=== PATIENT | male | born 1935 | race Caucasian/White ===

== ENCOUNTER 2016-06-23 11:25 | Observation (INO) | payer MEDICARE, BC ==
[2016-06-23] MEDS ORDERED: ASPIRIN 81 MG CHEW PO STA (11:51)
[2016-06-23] MEDS ORDERED: NITROGLYCERIN OINT 1 INCH/GM PACKET TOPICAL STA (11:51)
--- NOTE | 2016-06-23 11:54 | ED ---
General Adult HPI - General Chief complaint: Chest Pain Stated complaint: heart flutter Time Seen by Provider: 06/23/16 11:37 Source: patient, RN notes reviewed Mode of arrival: wheelchair Limitations: no limitations - History of Present Illness Initial comments: Patient is a pleasant 80-year-old male presenting to the emergency Department with palpitations and chest discomfort. Onset of symptoms was prior to arrival. Patient checked his monitor with a heart rate of 166. Patient felt he had some pressure in his chest. Patient was given 2 nitroglycerin at home with resolution of symptoms. Patient is currently symptom-free. Patient did have similar symptoms once around 5 years ago and had stent placement. No leg pain or swelling. No cough or fever. No nausea or diaphoresis. No dyspnea. - Related Data Home Medications Medication Instructions Recorded Confirmed Apixaban [Eliquis] 2.5 mg PO BID 01/17/16 06/23/16 Cholecalciferol [Vitamin D3] 2,000 unit PO DAILY 01/17/16 06/23/16 Meclizine [Antivert] 25 mg PO BID PRN 01/17/16 06/23/16 Ranitidine HCl 150 mg PO DAILY 01/17/16 06/23/16 Carboxymethylcellulose Sodium 1 drop BOTH EYES TID PRN 03/18/16 06/23/16 [Refresh Tears] Magnesium Oxide [Mag-Ox] 400 mg PO DAILY 03/18/16 06/23/16 Ubidecarenone [Co Q-10] 100 mg PO DAILY 03/18/16 06/23/16 Vitamin A 10,000 unit PO DAILY 03/18/16 06/23/16 guaiFENesin [Mucinex] 600 mg PO BID PRN 03/18/16 06/23/16 Flecainide Acetate [Tambocor] 50 mg PO Q12HR 04/22/16 06/23/16 Metoprolol Tartrate [Lopressor] 12.5 mg PO QAM 04/22/16 06/23/16 Nitroglycerin Sl Tabs [Nitrostat] 0.4 mg SUBLINGUAL Q5M PRN 04/22/16 06/23/16 HYDROcodone/APAP 7.5-325MG [[place] 1 - 2 tab PO Q6HR PRN 06/23/16 06/23/16 7.5-325] Previous Rx's Medication Instructions Recorded Buta/APAP/Caf/Cod 15-517-27-30 1 cap PO TID PRN #10 cap 05/01/16 [Fioricet w/Cod 10-646-78-30MG] Allergies Allergy/AdvReac Type Severity Reaction Status Date / Time diltiazem HCl [From Cardizem] Allergy Rash/Hives Verified 06/23/16 11:58 Penicillins Allergy Swelling Verified 06/23/16 11:58 Review of Systems ROS Statement: Those systems with pertinent positive or pertinent negative responses have been documented in the HPI. ROS Other: All systems not noted in ROS Statement are negative. Constitutional: Denies: fever Eyes: Denies: eye pain ENT: Denies: ear pain Respiratory: Denies: cough, dyspnea Cardiovascular: Reports: chest pain, palpitations Endocrine: Denies: fatigue Gastrointestinal: Denies: abdominal pain Genitourinary: Denies: dysuria Musculoskeletal: Denies: back pain Skin: Denies: rash Neurological: Denies: weakness Past Medical History Past Medical History: Atrial Fibrillation, Coronary Artery Disease (CAD), Cancer , GERD/Reflux, Hyperlipidemia, Hypertension, Memory Impairment, Myocardial Infarction ([place]), Musculoskeletal Disorder, Osteoarthritis (OA), Skin Disorder Additional Past Medical History / Comment(s): skin cancer, psoriasis, sinus problems,diverticulitis, bulging discs-back pain. Last Myocardial Infarction Date:: 01/27/15 History of Any Multi-Drug Resistant Organisms: None Reported Past Surgical History: Heart Catheterization With Stent Additional Past Surgical History / Comment(s): cardiac stents x2, right knee replacement, Revision total R knee, right quadricep tendon rupture with repair , hemorroidectomy, colonoscopy/egd, lt inguinal hernia, hip replacement Past Anesthesia/Blood Transfusion Reactions: No Reported Reaction Additional Past Anesthesia/Blood Transfusion Reaction / Comment(s): disoriented for a couple days after surgery/anesthesia (fell out of bed 1st day post op after knee replacement) Date of Last Stent Placement:: 2015 Past Psychological History: No Psychological Hx Reported Additional Psychological History / Comment(s): Pt resides with his spouse. He uses a cane to ambulate. He states he performs his own ADLs and manages his own medication. He states he drives. is not well-issue after back/knee surgery-pt states she is in bed. Smoking Status: Former smoker Past Alcohol Use History: None Reported Additional Past Alcohol Use History / Comment(s): started smoking at age 13 ( 1949)-quit 37 years ago (1977) Past Drug Use History: None Reported - Past Family History Sister(s) Family Medical History: Cancer Brother(s) Family Medical History: Cancer Father Family Medical History: No Reported History Additional Family Medical History / Comment(s): was smoker, from pneumonia at age 82 yrs. Mother Family Medical History: Cancer Additional Family Medical History / Comment(s): . General Exam Limitations: no limitations General appearance: alert, in no apparent distress Head exam: Present: atraumatic Eye exam: Present: normal appearance, PERRL ENT exam: Present: normal oropharynx Neck exam: Present: normal inspection Respiratory exam: Present: normal lung sounds bilaterally Cardiovascular Exam: Present: regular rate, normal rhythm Expanded Peripheral pulses: 2+: Radial (R), Radial (L), Posterior Tibialis (R), Posterior Tibialis (L) GI/Abdominal exam: Present: soft. Absent: distended, tenderness Extremities exam: Present: normal inspection. Absent: pedal edema, calf tenderness Neurological exam: Present: alert Psychiatric exam: Present: normal affect, normal mood Skin exam: Absent: rash Course Vital Signs 06/23/16 06/23/16 06/23/16 11:26 12:08 12:53 Temperature 97.5 F L Pulse Rate 66 57 L 53 L Respiratory 18 15 18 Rate Blood Pressure 101/57 104/60 105/59 O2 Sat by Pulse 99 99 99 Oximetry EKG Findings - EKG Comments: EKG Findings:: Normal sinus rhythm at 63. Normal intervals. Left axis. Normal QRS. Normal ST-T. Medical Decision Making - Medical Decision Making Patient reexamined and resting comfortably in bed. Patient and family updated on results and plan. Case was discussed in detail with Dr. Rodriguez, who will admit for Dr. Toledo. - Lab Data Result diagrams: 06/23/16 12:07 06/23/16 12:07 Lab Results 06/23/16 06/23/16 06/23/16 Range/Units 12:07 12:07 12:07 WBC 6.2 (3.8-10.6) k/uL RBC 3.91 L (4.30-5.90) m/uL Hgb 12.2 L (13.0-17.5) gm/dL Hct 36.9 L (39.0-53.0) % MCV 94.4 (80.0-100.0) fL MCH 31.2 (25.0-35.0) pg MCHC 33.1 (31.0-37.0) g/dL RDW 13.2 (11.5-15.5) % Plt Count 246 (150-450) k/uL Neutrophils % 69 % Lymphocytes % 18 % Monocytes % 8 % Eosinophils % 2 % Basophils % 0 % Neutrophils # 4.2 (1.3-7.7) k/uL Lymphocytes # 1.1 (1.0-4.8) k/uL Monocytes # 0.5 (0-1.0) k/uL Eosinophils # 0.1 (0-0.7) k/uL Basophils # 0.0 (0-0.2) k/uL PT (9.0-12.0) sec INR (<1.1) APTT (22.0-30.0) sec Sodium 146 H (137-145) mmol/L Potassium 4.5 (3.5-5.1) mmol/L Chloride 108 H (98-107) mmol/L Carbon Dioxide 27 (22-30) mmol/L Anion Gap 11 mmol/L BUN 20 (9-20) mg/dL Creatinine 1.10 (0.66-1.25) mg/dL Est GFR (MDRD) Af Amer >60 (>60 ml/min/1.73 sqM) Est GFR (MDRD) Non-Af >60 (>60 ml/min/1.73 sqM) Glucose 116 H (74-99) mg/dL Calcium 9.4 (8.4-10.2) mg/dL Magnesium 2.2 (1.6-2.3) mg/dL Total Bilirubin 0.4 (0.2-1.3) mg/dL AST 19 (17-59) U/L ALT 25 (21-72) U/L Alkaline Phosphatase 62 (38-126) U/L Total Creatine Kinase 32 L (55-170) U/L CK-MB (CK-2) <0.2 (0.0-2.4) ng/mL CK-MB (CK-2) Rel Index Troponin I <0.012 (0.000-0.034) ng/mL Total Protein 6.7 (6.3-8.2) g/dL Albumin 3.6 (3.5-5.0) g/dL TSH 2.580 (0.465-4.680) mIU/L Free T4 1.22 (0.78-2.19) ng/dL Free T3 pg/mL 4.2 (2.8-5.3) pg/ml 06/23/16 Range/Units 12:07 WBC (3.8-10.6) k/uL RBC (4.30-5.90) m/uL Hgb (13.0-17.5) gm/dL Hct (39.0-53.0) % MCV (80.0-100.0) fL MCH (25.0-35.0) pg MCHC (31.0-37.0) g/dL RDW (11.5-15.5) % Plt Count (150-450) k/uL Neutrophils % % Lymphocytes % % Monocytes % % Eosinophils % % Basophils % % Neutrophils # (1.3-7.7) k/uL Lymphocytes # (1.0-4.8) k/uL Monocytes # (0-1.0) k/uL Eosinophils # (0-0.7) k/uL Basophils # (0-0.2) k/uL PT 11.2 (9.0-12.0) sec INR 1.1 (<1.1) APTT 24.5 (22.0-30.0) sec Sodium (137-145) mmol/L Potassium (3.5-5.1) mmol/L Chloride (98-107) mmol/L Carbon Dioxide (22-30) mmol/L Anion Gap mmol/L BUN (9-20) mg/dL Creatinine (0.66-1.25) mg/dL Est GFR (MDRD) Af Amer (>60 ml/min/1.73 sqM) Est GFR (MDRD) Non-Af (>60 ml/min/1.73 sqM) Glucose (74-99) mg/dL Calcium (8.4-10.2) mg/dL Magnesium (1.6-2.3) mg/dL Total Bilirubin (0.2-1.3) mg/dL AST (17-59) U/L ALT (21-72) U/L Alkaline Phosphatase (38-126) U/L Total Creatine Kinase (55-170) U/L CK-MB (CK-2) (0.0-2.4) ng/mL CK-MB (CK-2) Rel Index Troponin I (0.000-0.034) ng/mL Total Protein (6.3-8.2) g/dL Albumin (3.5-5.0) g/dL TSH (0.465-4.680) mIU/L Free T4 (0.78-2.19) ng/dL Free T3 pg/mL (2.8-5.3) pg/ml - Radiology Data Radiology results: image reviewed (Chest x-ray shows no acute process) Disposition Clinical Impression: Chest pain, Palpitations Disposition: ADMITTED IP TO THIS [facility] Time of Disposition: 14:06
[2016-06-23 12:20] LABS: Basophils % (A) 0 %; CH 31.8; CHCM 33.8; Eosinophils # (A) 0.1 k/uL (0-0.7); Eosinophils % (A) 2 %; HCT 36.9 % (39.0-53.0); HDW 2.83; HGB 12.2 gm/dL (13.0-17.5); Luc # (Auto) 0.21; Luc % (Auto) 3; Lymphocytes # (A) 1.1 k/uL (1.0-4.8); Lymphocytes % (A) 18 %; MCH 31.2 pg (25.0-35.0); MCHC 33.1 g/dL (31.0-37.0); MCV 94.4 fL (80.0-100.0); Mean Platelet Volume 6.5; Monocytes # (A) 0.5 k/uL (0-1.0); Monocytes % (A) 8 %; Neutrophils # (A) 4.2 k/uL (1.3-7.7); Neutrophils % (A) 69 %; RBC 3.91 m/uL (4.30-5.90); RDW 13.2 % (11.5-15.5); WBC 6.2 k/uL (3.8-10.6); WBC (Perox) 6.53
[2016-06-23 12:30] LABS: INR 1.1 (<1.1); Partial Thromboplastin Time 24.5 sec (22.0-30.0); Prothrombin Time 11.2 sec (9.0-12.0)
--- NOTE | 2016-06-23 12:32 | XR ---
EXAMINATION TYPE: XR chest 1V portable DATE OF EXAM: 06/23/2016 12:27 PM COMPARISON: 03/18/2016 HISTORY: Dysrhythmia TECHNIQUE: Single frontal view of the chest is obtained. FINDINGS: There is no focal air space opacity, pleural effusion, or pneumothorax seen. The cardiac silhouette size is within normal limits. The osseous structures are intact. Hyperinflation suggests COPD. Hypertrophic change of the spine noted. IMPRESSION: No acute process.
[2016-06-23 12:34] LABS: ALT 25 U/L (21-72); AST 19 U/L (17-59); Alkaline Phosphatase 62 U/L (38-126); Anion Gap 11 mmol/L; Blood Urea Nitrogen 20 mg/dL (9-20); Calcium 9.4 mg/dL (8.4-10.2); Carbon Dioxide 27 mmol/L (22-30); Chloride 108 mmol/L (98-107); Glucose 116 mg/dL (74-99); Magnesium 2.2 mg/dL (1.6-2.3); Non-African American GFR(MDRD) >60 (>60 ml/min/1.73 sqM); Potassium 4.5 mmol/L (3.5-5.1); Sodium 146 mmol/L (137-145); Total Bilirubin 0.4 mg/dL (0.2-1.3); Total Protein 6.7 g/dL (6.3-8.2)
[2016-06-23 12:37] LABS: Creatine Kinase 32 U/L (55-170)
[2016-06-23 12:50] LABS: Creatine Kinase MB <0.2 ng/mL (0.0-2.4); Troponin I <0.012 ng/mL (0.000-0.034)
[2016-06-23] MEDS ORDERED: NITROGLYCERIN SL TABS 0.4 MG TAB SUBLINGUAL PRN (14:07)
[2016-06-23] MEDS ORDERED: ARTIFICIAL TEARS-HYPROMELLOSE DROPS 15 ML BTL BOTH EYES PRN (14:08)
[2016-06-23 15:04] VITALS: BMI 30.9
--- NOTE | 2016-06-23 16:36 | CONS ---
DATE OF CONSULTATION: 06/23/2016 CHIEF COMPLAINT: Chest pain. Manolo is an 80-year-old gentleman with history of coronary artery disease, status post angioplasty of LAD and circumflex coronary artery, who presented to [facility] complaining of chest pain. He describes it as a precordial chest pressure that was mild in intensity, came on at rest without definite radiation to neck, arm or back. He took 2 sublingual nitroglycerin and became pain-free. He came to the hospital and got admitted. Since coming to hospital he has been free of chest pain. EKG does not reveal ischemic changes. The first set of troponin is negative. Patient was in the hospital with chest pain in March of 2016, ruled out for myocardial infarction, underwent a stress test that was negative for ischemia. Patient's last cardiac catheterization was in January of 2015. That revealed a subtotally occluded proximal left circumflex coronary artery, for which he underwent angioplasty. Right coronary artery was free of stenosis and the LAD showed mild disease. Past medical history is significant for coronary artery disease, status post angioplasty, atrial fibrillation. Medications at home included: 1. Flecainide 50 mg b.i.d. 2. Eliquis 2.5 mg b.i.d. 3. Metoprolol. 4. Co-Q-10. ALLERGIES: CHARTED. FAMILY HISTORY: Negative for premature coronary artery disease. SOCIAL HISTORY: Negative for smoking, EtOH abuse or drug abuse. REVIEW OF SYSTEMS: HEENT: Unremarkable. CARDIAC: As described above. RESPIRATORY: Negative. GI: Negative. GENITOURINARY: Negative. ALLERGY/IMMUNOLOGY: Negative. MUSCULOSKELETAL: Negative. ENDOCRINE: Negative. DERMATOLOGIC: Negative. CONSTITUTIONAL: Negative. The rest of the system review is not relevant. On exam, comfortable at rest. Vital signs are stable. There is no jugular venous distention. Carotid upstroke is normal. There is no bruit. Chest exam reveals good air entry bilaterally. Heart exam reveals first and second heart sounds. No gallop. No murmur. No rub. Abdomen is soft, nontender. Examination of extremities did not reveal edema. Peripheral pulses are felt. 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 EKG does not reveal ischemic changes. Labs have been reviewed. ASSESSMENT: 1. Chest pain in a patient with known coronary artery disease, status post prior angioplasty. 2. Paroxysmal atrial fibrillation. 3. History of recent hip and knee surgery. PLAN: Patient is anticoagulated with Eliquis, which I am going to continue. I reviewed previous catheterization and stress test results, talked to patient about his treatment options, including undergoing invasive angiography tomorrow morning. Understanding all the issues, patient wishes to be observed overnight, and if he rules out for myocardial infarction will go home and follow up with Dr. Winchester, his primary trailer body assembler.
[2016-06-23] MEDS: NITROGLYCERIN OINT 1 INCH/GM PACKET TOPICAL SCH ×2 (17:41→23:57)
[2016-06-23] MEDS: APIXABAN 2.5 MG TABLET PO SCH (19:29)
[2016-06-23] MEDS: FLECAINIDE 50 MG TAB PO SCH (19:29)
[2016-06-23 19:32] LABS: Creatine Kinase 26 U/L (55-170)
[2016-06-23 19:46] LABS: Creatine Kinase MB <0.2 ng/mL (0.0-2.4); Troponin I <0.012 ng/mL (0.000-0.034)
[2016-06-24 00:11] LABS: Creatine Kinase 26 U/L (55-170)
[2016-06-24 00:24] LABS: Creatine Kinase MB <0.2 ng/mL (0.0-2.4); Troponin I <0.012 ng/mL (0.000-0.034)
[2016-06-24] MEDS ORDERED: BUTA/APAP/CAF/COD 50-325-40-30 CAP PO PRN (05:21)
[2016-06-24] MEDS: NITROGLYCERIN OINT 1 INCH/GM PACKET TOPICAL SCH ×2 (06:44→12:13)
[2016-06-24] MEDS: APIXABAN 2.5 MG TABLET PO SCH (06:54)
[2016-06-24] MEDS: FLECAINIDE 50 MG TAB PO SCH (06:54)
--- NOTE | 2016-06-24 08:58 | PN ---
Manolo is an 80-year-old gentleman with history of coronary artery disease, status post multivessel angioplasty. He comes in to hospital with chest pain and ruled out for myocardial infarction. He just had a negative stress test in March 2016 and opted for medical therapy at this time this morning. This morning he is doing well and is free of symptoms. On exam, vital signs are stable. There is no jugular venous distention. Chest exam reveals good air entry bilaterally. Heart exam reveals first and second heart sounds. No gallop. Exam of the extremities did not reveal any edema. Three sets of cardiac enzymes are negative. ASSESSMENT: Chest pain, myocardial infarction ruled out. PLAN: The patient is doing well. He is stable to be discharged home and arrange follow-up with his primary certified orthotist/pedorthist.
[2016-06-24] MEDS ORDERED: FAMOTIDINE 20 MG TAB PO SCH (09:00)
[2016-06-24] MEDS ORDERED: ASPIRIN 325 MG TAB PO SCH (09:00)
[2016-06-24] MEDS ORDERED: CHOLECALCIFEROL 1,000 UNIT TAB PO SCH (09:00)
[2016-06-24] MEDS ORDERED: METOPROLOL TARTRATE 25 MG TAB PO SCH (09:00)
[2016-06-24] MEDS ORDERED: MAGNESIUM OXIDE 400 MG TAB PO SCH (09:00)
[2016-06-24 12:18] LABS: Cholesterol 193 mg/dL (<200); HDL Cholesterol 34 mg/dL (40-60); Triglycerides 225 mg/dL (<150)
[2016-06-24 12:29] VITALS: BP 113/58; PULSE 51; RESP 14; TEMP 98
--- NOTE | 2016-06-24 16:43 | HP ---
H&P AND DISCHARGE SUMMARY DATE OF ADMISSION: Patient is an 80-year-old with a history of coronary artery disease, coronary angioplasty to the circumflex artery, who came in with complaints of ( ) chest pain. The patient's heart rate was 160 at that time. Patient does have history of atrial fibrillation. Patient took 2 sublingual nitroglycerins and became free of chest pain. Patient's EKG showed sinus bradycardia ( ). Patient denied any fever or chills. Patient denied any lightheadedness. Patient was having ( ) chest pain. Patient denied any shortness of breath, diaphoresis at that time. Patient denied any radiation of chest pain. Patient's chest pain is nonpleuritic, not associated with food. Patient was evaluated by Cardiology. Patient underwent a stress test ( ) which was negative. Cardiac catheterization in 2014. Patient was evaluated by Cardiology ( ) patient's pain appears to be secondary to atrial fibrillation. No further intervention ( ) recommended by Cardiology. They recommended followup with Dr. Winchester, his primary auditor tax, as an outpatient. ROS: All other systems were reviewed and were negative. Past medical history is significant for: 1. Atrial fibrillation. 2. Coronary artery bypass grafting, status post angioplasty. 3. Gastroesophageal reflux disease. 4. Hyperlipidemia. 5. Hypertension. 6. Osteoarthritis. 7. Psoriasis. Home medications include: 1. Apixaban. 2. Cholecalciferol. 3. Meclizine. 4. Ranitidine. 5. Carboxymethylcellulose. 6. ( ) 7. Guaifenesin. 8. Flecainide. 9. Metoprolol. 10. Nitroglycerin. 11. Fioricet. ALLERGIES: 1. DILTIAZEM. 2. PENICILLINS. SOCIAL HISTORY: Quit smoking 37 years ago. Denied any alcohol abuse or any drug abuse. FAMILY HISTORY: Sister had cancer. Brother had cancer. Father had no reported history. Mother had cancer as well. PHYSICAL EXAMINATION: VITAL SIGNS: Temperature 97.5, pulse of 57, respiratory rate of 18. Blood pressure is 104/59. Saturating at 99% on room air. GENERAL: The patient is alert and oriented x3, not in any acute distress. Well developed, well nourished. HEENT: Pupils are round and equally reacting to light. EOMI. No scleral icterus. No conjunctival pallor. Normocephalic, atraumatic. No pharyngeal erythema. No thyromegaly. CARDIOVASCULAR: S1 and S2 present. No murmurs, rubs, or gallops. PULMONARY: Chest is clear to auscultation, no wheezing or crackles. ABDOMEN: Soft, nontender, nondistended, normoactive bowel sounds. No palpable organomegaly. MUSCULOSKELETAL: No joint swelling or deformity. EXTREMITIES: No cyanosis, clubbing, or pedal edema. NEUROLOGICAL: Gross neurological examination did not reveal any focal deficits. SKIN: No rashes. LABORATORY DATA: CBC, CMP are essentially within normal limits. EKG as mentioned above. Troponins are negative. Chest x-ray did not show any acute abnormality. ASSESSMENT AND PLAN: 1. Chest pain, probably related to episode of atrial fibrillation. No precipitating cause was identified for atrial fibrillation. Patient is rate-controlled at this point of time, in sinus rhythm. Patient is cleared by discharge from cardiology perspective. Rule out acute coronary syndromes. 2. Coronary artery disease. 3. History of coronary artery disease. Patient ( ) recent cardiac catheterization and a recent stress test which was negative. 4. Gastroesophageal reflux disease. 5. Hypertension. 6. Psoriasis. For above-mentioned chronic medical problems, patient can continue his home medications. This dictation is both H&P and discharge summary. Patient will be discharged today. HERBERTH
== END 2016-06-24 14:23 | disposition home or self-care (01) ==
LOC: EC 11:25 → 3OBS 14:07
PROVIDERS: ADMIT Internal Medicine; ATTEND Internal Medicine
DX: I25.10 Atherosclerotic heart disease of native coronary artery without angina pectoris (principal); I48.0 Paroxysmal atrial fibrillation; E78.5 Hyperlipidemia, unspecified; I10 Essential (primary) hypertension; I25.2 Old myocardial infarction; K21.9 Gastro-esophageal reflux disease without esophagitis; L40.9 Psoriasis, unspecified; M19.90 Unspecified osteoarthritis, unspecified site; Z87.891 Personal history of nicotine dependence; Z95.1 Presence of aortocoronary bypass graft; Z95.5 Presence of coronary angioplasty implant and graft; Z79.899 Other long term (current) drug therapy; Z79.02 Long term (current) use of antithrombotics/antiplatelets; Z88.0 Allergy status to penicillin; Z88.8 Allergy status to other drugs, medicaments and biological substances; R00.1 Bradycardia, unspecified
CPT/HCPCS: 36415; 94760; 93005; 84439; 84481; 80061; 80053; 82550; 82553; 83735; 84443; 84484; 85025; 85610; 85730; 71010; 99285; G0378 ×2

== ENCOUNTER → 2016-09-01 | Outpatient (CLI) | payer MEDICARE, BC ==
[2016-09-01 11:00] LABS: Basophils # (A) 0.1 k/uL (0-0.2); Basophils % (A) 1 %; CH 31.9; CHCM 33.8; Eosinophils # (A) 0.2 k/uL (0-0.7); Eosinophils % (A) 2 %; HCT 37.5 % (39.0-53.0); HDW 2.77; HGB 12.5 gm/dL (13.0-17.5); Luc # (Auto) 0.17; Luc % (Auto) 2; Lymphocytes # (A) 1.5 k/uL (1.0-4.8); Lymphocytes % (A) 20 %; MCH 31.6 pg (25.0-35.0); MCHC 33.3 g/dL (31.0-37.0); MCV 95.1 fL (80.0-100.0); Mean Platelet Volume 6.4; Monocytes # (A) 0.4 k/uL (0-1.0); Monocytes % (A) 6 %; Neutrophils % (A) 68 %; RBC 3.95 m/uL (4.30-5.90); RDW 14.4 % (11.5-15.5); WBC 7.2 k/uL (3.8-10.6); WBC (Perox) 7.71
[2016-09-01 11:13] LABS: ALT 22 U/L (21-72); Anion Gap 11 mmol/L; Blood Urea Nitrogen 25 mg/dL (9-20); Carbon Dioxide 27 mmol/L (22-30); Chloride 106 mmol/L (98-107); Cholesterol 193 mg/dL (<200); HDL Cholesterol 41 mg/dL (40-60); Non-African American GFR(MDRD) >60 (>60 ml/min/1.73 sqM); Potassium 4.8 mmol/L (3.5-5.1); Sodium 144 mmol/L (137-145); Triglycerides 246 mg/dL (<150)
== END ==
LOC: LABWHC1 10:30
PROVIDERS: ATTEND Internal Medicine Cardiovascular Disease
DX: E78.5 Hyperlipidemia, unspecified (principal); I34.0 Nonrheumatic mitral (valve) insufficiency; I25.10 Atherosclerotic heart disease of native coronary artery without angina pectoris; R06.02 Shortness of breath; Z51.81 Encounter for therapeutic drug level monitoring; Z79.899 Other long term (current) drug therapy
CPT/HCPCS: 36415; 80051; 80061; 82306; 82565; 83880; 84443; 84460; 84520; 85025

== ENCOUNTER 2016-10-26 08:09 | Emergency (ER) | payer MEDICARE, BC ==
[2016-10-26] MEDS ORDERED: SODIUM CHLORIDE 0.9% 1,000 ML IV STA (08:45)
[2016-10-26] MEDS ORDERED: HYDROmorphone 1 MG/ML 1 ML SYRINGE IVP STA (08:45)
[2016-10-26] MEDS ORDERED: ASPIRIN 81 MG CHEW PO STA (08:45)
[2016-10-26] MEDS ORDERED: METOPROLOL TARTRATE 25 MG TAB PO STA (08:48)
--- NOTE | 2016-10-26 08:54 | ED ---
Chest Pain HPI - General Chief Complaint: Chest Pain Stated Complaint: chest pain Time Seen by Provider: 10/26/16 08:24 Source: patient Mode of arrival: wheelchair Limitations: no limitations - History of Present Illness Initial Comments: 81 years old gentleman has a history of atrial fibrillation and he is on aliquots flecainide and metoprolol he noticed chest pressure this morning when he woke up around 5 AM he has been taking all his medications religiously pain was about 4/10 now pain is about 3/10 he did take couple of nitros it didn't help he denies any shortness of breath denies any pleuritic chest pain his blood pressure normally runs low his blood pressure runs below 100 - Related Data Home Medications Medication Instructions Recorded Confirmed Apixaban [Eliquis] 2.5 mg PO BID 01/17/16 10/26/16 Cholecalciferol [Vitamin D3] 2,000 unit PO DAILY 01/17/16 10/26/16 Meclizine [Antivert] 25 mg PO BID PRN 01/17/16 10/26/16 Vitamin A 10,000 unit PO DAILY 03/18/16 10/26/16 guaiFENesin [Mucinex] 600 mg PO BID PRN 03/18/16 10/26/16 Flecainide Acetate [Tambocor] 50 mg PO Q12HR 04/22/16 10/26/16 Metoprolol Tartrate [Lopressor] 12.5 mg PO QAM 04/22/16 10/26/16 Nitroglycerin Sl Tabs [Nitrostat] 0.4 mg SUBLINGUAL Q5M PRN 04/22/16 10/26/16 Previous Rx's Medication Instructions Recorded Buta/APAP/Caf/Cod [id number] 1 cap PO TID PRN #10 cap 05/01/16 [Fioricet w/Cod 20-141-37-30MG] Allergies Allergy/AdvReac Type Severity Reaction Status Date / Time diltiazem HCl [From Cardizem] Allergy Rash/Hives Verified 10/26/16 10:13 Penicillins Allergy Swelling Verified 10/26/16 10:13 Review of Systems ROS Statement: Those systems with pertinent positive or pertinent negative responses have been documented in the HPI. ROS Other: All systems not noted in ROS Statement are negative. EKG Findings - EKG Comments: EKG Findings:: Is atrial fibrillation ventricular rate is 142 QRS duration is 88 QT/QTc is 3086/473 review of this EKG does not reveal any ST elevation or ST depression Past Medical History Past Medical History: Atrial Fibrillation, Coronary Artery Disease (CAD), Cancer , GERD/Reflux, Hyperlipidemia, Hypertension, Memory Impairment, Myocardial Infarction ([place]), Musculoskeletal Disorder, Osteoarthritis ([place]), Skin Disorder Additional Past Medical History / Comment(s): skin cancer, psoriasis, sinus problems,diverticulitis, bulging discs-back pain. Last Myocardial Infarction Date:: 01/27/15 History of Any Multi-Drug Resistant Organisms: None Reported Past Surgical History: Heart Catheterization With Stent Additional Past Surgical History / Comment(s): cardiac stents x2, right knee replacement, Revision total R knee, right quadricep tendon rupture with repair , hemorroidectomy, colonoscopy/egd, lt inguinal hernia, hip replacement, left eye cataract removed Past Anesthesia/Blood Transfusion Reactions: No Reported Reaction Additional Past Anesthesia/Blood Transfusion Reaction / Comment(s): disoriented for a couple days after surgery/anesthesia (fell out of bed 1st day post op after knee replacement) Date of Last Stent Placement:: 2015 Past Psychological History: No Psychological Hx Reported Additional Psychological History / Comment(s): Pt resides with his spouse. He uses a cane to ambulate. He states he performs his own ADLs and manages his own medication. He states he drives. is not well-issue after back/knee surgery-pt states she is in bed. Smoking Status: Former smoker Past Alcohol Use History: None Reported Additional Past Alcohol Use History / Comment(s): started smoking at age 13 ( 1949)-quit 37 years ago (1977) Past Drug Use History: None Reported - Past Family History Sister(s) Family Medical History: Cancer Brother(s) Family Medical History: Cancer Father Family Medical History: No Reported History Additional Family Medical History / Comment(s): was smoker, from pneumonia at age 82 yrs. Mother Family Medical History: Cancer Additional Family Medical History / Comment(s): . General Exam - General Exam Comments Initial Comments: General: The patient is awake and alert, in no distress, and does not appear acutely ill. Does look pale Skin: Skin is warm and dry and no rashes or lesions are noted. Eye: Pupils are equal, round and reactive to light, extra-ocular movements are intact; there is normal conjunctiva bilaterally. Ears, nose, mouth and throat: There are moist mucous membranes and no oral lesions. Neck: The neck is supple, there is no tenderness Cardiovascular: There is A. fib with RVR) 140 Respiratory: To auscultation bilateral, it sounds are decreased in general, no wheezing Gastrointestinal: Soft, non-distended, non-tender abdomen without masses or organomegaly noted. There is no rebound or guarding present. Bowel sounds are unremarkable. Back: There is no tenderness to palpation in the midline. There is no obvious deformity. Musculoskeletal: Normal ROM, no tenderness, There is no pedal edema. There is no calf tenderness or swelling. No cords were appreciated. Neurological: CN II-XII intact, Cranial nerves III through XII are intact. There are no obvious motor or sensory deficits. Coordination appears grossly intact. Speech is normal. Psychiatric: Cooperative, appropriate mood & affect, normal judgment. Limitations: no limitations Course Vital Signs 10/26/16 10/26/16 10/26/16 08:14 08:16 09:24 Temperature 98.6 F Pulse Rate 132 H 136 H 64 Respiratory 18 20 Rate Blood Pressure 102/59 104/71 O2 Sat by Pulse 96 Oximetry 10/26/16 09:57 Temperature Pulse Rate 68 Respiratory 20 Rate Blood Pressure 116/67 O2 Sat by Pulse 99 Oximetry After patient was giving him some IV fluids as well as metoprolol 25 mg his heart rate dropped from 139-64 bpm it's not atrial fibrillation it's sinus rhythm EKG done at 953 this is the second EKG is normal sinus rhythm, ventricular rate is 64 NV interval is 186 QRS duration is 70 QT/QTc is 48/420 review of this EKG does not reveal any ST elevation or ST depression. - Reevaluation(s) Reevaluation #1: 10/26/16 11:20 Patient wanted to leave AMA, I tried explained them that we need at least 3 sets of cardiac markers and then they could stay be evaluated by cardiology and see if there is any question of any blockade but patient and his found him in the morning they wanted go to their advised to come back if things get worse they agreed with the Reevaluation #2: 10/26/16 11:21 His heart rate settled down to around 60 bpm after metoprolol chest pain is resolved at this point Critical Care Time Total Critical Care Time: 30 Critical Care Time: On arrival the patient's pulse was 132 and is atrial fibrillation and there was a defibrillation with the RVR, fluid was started considering blood pressure was low and then now, About 25 mg was given a little while later heart rate dropped from 1:30 to 265 actually it converted from A. fib to sinus rhythm as well, CBC INR compressive metabolic panel troponin EKG chest x-ray are reviewed and they' re unremarkable that was shared with the patient and recommend that we keep him in inpatient for at least serial cardiac markers considering his history of ischemic heart disease and chest pain Disposition Clinical Impression: Chest pain, Atrial fibrillation with RVR Disposition: Left Against Medical Advice Instructions: Chest Pain (ED) Referrals: Neelima Toledo MD [Primary Care Provider] - 1-2 days
[2016-10-26 09:33] LABS: Basophils % (A) 1 %; CH 33.3; CHCM 34.1; Eosinophils # (A) 0.1 k/uL (0-0.7); Eosinophils % (A) 1 %; HCT 38.3 % (39.0-53.0); HDW 2.61; HGB 12.9 gm/dL (13.0-17.5); Luc # (Auto) 0.19; Luc % (Auto) 2; Lymphocytes # (A) 1.6 k/uL (1.0-4.8); Lymphocytes % (A) 19 %; MCHC 33.6 g/dL (31.0-37.0); MCV 98.2 fL (80.0-100.0); Mean Platelet Volume 6.2; Monocytes # (A) 0.6 k/uL (0-1.0); Monocytes % (A) 7 %; Neutrophils # (A) 5.6 k/uL (1.3-7.7); Neutrophils % (A) 70 %; RBC 3.89 m/uL (4.30-5.90); RDW 13.4 % (11.5-15.5); WBC 8.1 k/uL (3.8-10.6); WBC (Perox) 8.64
[2016-10-26 09:46] LABS: INR 1.1 (<1.1); Partial Thromboplastin Time 26.8 sec (22.0-30.0); Prothrombin Time 11.1 sec (9.0-12.0)
--- NOTE | 2016-10-26 09:49 | XR ---
EXAMINATION TYPE: XR chest 2V DATE OF EXAM: 10/26/2016 COMPARISON: Chest x-ray June 23, 2016. HISTORY: Tachycardia and chest pain. TECHNIQUE: Frontal and lateral views of the chest are obtained. FINDINGS: There is no focal air space opacity, pleural effusion, or pneumothorax seen. The cardiac silhouette size is within normal limits. Multilevel spurring in thoracic spine is present. IMPRESSION: No acute process. No significant change from prior.
[2016-10-26 09:51] LABS: ALT 24 U/L (21-72); AST 22 U/L (17-59); Alkaline Phosphatase 62 U/L (38-126); Anion Gap 13 mmol/L; Blood Urea Nitrogen 21 mg/dL (9-20); Calcium 9.2 mg/dL (8.4-10.2); Carbon Dioxide 26 mmol/L (22-30); Chloride 106 mmol/L (98-107); Glucose 99 mg/dL (74-99); Magnesium 2.1 mg/dL (1.6-2.3); Non-African American GFR(MDRD) >60 (>60 ml/min/1.73 sqM); Potassium 4.4 mmol/L (3.5-5.1); Sodium 145 mmol/L (137-145); Total Bilirubin 0.7 mg/dL (0.2-1.3); Total Protein 6.9 g/dL (6.3-8.2)
[2016-10-26 10:23] LABS: Creatine Kinase 42 U/L (55-170)
[2016-10-26 10:36] LABS: Creatine Kinase MB <0.2 ng/mL (0.0-2.4); Troponin I <0.012 ng/mL (0.000-0.034)
[2016-10-26 11:40] VITALS: BP 110/78; PULSE 87; RESP 18; TEMP 97.5
== END 2016-10-26 11:40 | disposition left against medical advice (07) ==
LOC: EC 08:09
DX: I48.91 Unspecified atrial fibrillation (principal); R07.9 Chest pain, unspecified; I25.10 Atherosclerotic heart disease of native coronary artery without angina pectoris; E78.5 Hyperlipidemia, unspecified; I10 Essential (primary) hypertension; I25.2 Old myocardial infarction; Z53.29 Procedure and treatment not carried out because of patient's decision for other reasons; Z95.5 Presence of coronary angioplasty implant and graft; Z88.0 Allergy status to penicillin; Z88.8 Allergy status to other drugs, medicaments and biological substances; Z79.01 Long term (current) use of anticoagulants; Z79.899 Other long term (current) drug therapy; Z87.891 Personal history of nicotine dependence
CPT/HCPCS: 99285; 96374; 96361 ×2; 36415; 93005; 80053; 82550; 82553; 83735; 84484; 85025; 85610; 85730; 71020; J1170

== ENCOUNTER → 2016-10-29 | Outpatient (CLI) | payer MEDICARE, BC ==
[2016-10-29 11:39] LABS: Basophils % (A) 1 %; CH 33.1; CHCM 34.6; Eosinophils # (A) 0.1 k/uL (0-0.7); Eosinophils % (A) 2 %; HCT 37.3 % (39.0-53.0); HDW 2.75; HGB 12.5 gm/dL (13.0-17.5); Luc # (Auto) 0.19; Luc % (Auto) 3; Lymphocytes # (A) 1.5 k/uL (1.0-4.8); Lymphocytes % (A) 23 %; MCH 32.3 pg (25.0-35.0); MCHC 33.5 g/dL (31.0-37.0); MCV 96.3 fL (80.0-100.0); Mean Platelet Volume 6.3; Monocytes # (A) 0.4 k/uL (0-1.0); Monocytes % (A) 7 %; Neutrophils # (A) 4.2 k/uL (1.3-7.7); Neutrophils % (A) 65 %; RBC 3.87 m/uL (4.30-5.90); RDW 12.8 % (11.5-15.5); WBC 6.4 k/uL (3.8-10.6)
[2016-10-29 12:01] LABS: ALT 24 U/L (21-72); Anion Gap 10 mmol/L; Blood Urea Nitrogen 26 mg/dL (9-20); Carbon Dioxide 26 mmol/L (22-30); Chloride 107 mmol/L (98-107); Cholesterol 185 mg/dL (<200); Glucose 100 mg/dL (74-99); HDL Cholesterol 44 mg/dL (40-60); Magnesium 2.1 mg/dL (1.6-2.3); Non-African American GFR(MDRD) >60 (>60 ml/min/1.73 sqM); Potassium 4.8 mmol/L (3.5-5.1); Sodium 143 mmol/L (137-145); Triglycerides 148 mg/dL (<150)
== END | disposition home or self-care (01) ==
LOC: LABWHC1 11:07
PROVIDERS: ATTEND Internal Medicine Cardiovascular Disease
DX: E78.5 Hyperlipidemia, unspecified (principal); I34.0 Nonrheumatic mitral (valve) insufficiency; R06.02 Shortness of breath
CPT/HCPCS: 36415; 80051; 80061; 82565; 82947; 83735; 83880; 84443; 84460; 84520; 85025

== ENCOUNTER 2016-12-10 08:57 | Day surgery (SDC) | payer MEDICARE, BC ==
[2016-12-03 17:30] VITALS: BMI 25.0
[~2016-12-10 08:57] MED LIST: LACTATED RINGERS 1,000 ML IV SCH; LIDOCAINE 1% 20 ML VIAL (10MG/ML) FOR IV START INTRADERMA PRN; TETRACAINE 0.5% OPHTH (PF) DROPS 4 ML BTL OP ONE
[2016-12-10] MEDS: PHENYLEPHRINE 2.5% OPHTH DRP 2ML OP NR ×3 (10:18→10:35)
[2016-12-10] MEDS: CYCLOPENTOLATE 1% OPHTH SOLN 2 ML BTL OP ONE ×3 (10:22→10:40)
[2016-12-10 10:49] VITALS: RESP 16; TEMP 97
[2016-12-10] MEDS ORDERED: TIMOLOL 0.5% OPHTH SOLN (PF) 0.2 ML DROPERETTE RIGHT EYE ONE ×2 (11:02→11:06)
[2016-12-10] MEDS ORDERED: BALANCED SALT IRRIG SOLN COMB2 15 ML IRRIG.SOLN INTRAOCULA ONE ×2 (11:02→11:06)
[2016-12-10] MEDS: MOXIFLOXACIN HCL 0.5% DROPS 3 ML BTL OP ONE ×2 (11:03→11:06)
[2016-12-10] MEDS ORDERED: LIDOCAINE 1% (PF) 10MG/ML VIAL SQ ONE ×2 (11:04→11:06)
[2016-12-10] MEDS: TIMOLOL 0.5% OPHTH SOLN (PF) 0.2 ML DROPERETTE OP ONE ×2 (11:04→11:06)
[2016-12-10] MEDS ORDERED: fentaNYL (PF) 50 MCG/ML 2 ML AMP ONE (11:06)
[2016-12-10] MEDS ORDERED: EPINEPHrine (PF) 0.3 ML in BALANCED SALT IRRIG SOLN COMB2 500 ML IRRIGATION ONE (11:09)
--- NOTE | 2016-12-10 11:29 | P.OP ---
Date of Procedure: 12/10/16 Preoperative Diagnosis: NS & CS Postoperative Diagnosis: same Procedure(s) Performed: PIOL, OD Implants: PCB00 20.50 Anesthesia: MAC Surgeon: Branden Sauer Estimated Blood Loss (ml): 0 Pathology: none sent Condition: stable Disposition: same day Indications for Procedure: blurry vision Operative Findings: No complications Description of Procedure:
[2016-12-10 11:51] VITALS: PULSE 52
[2016-12-10 11:52] VITALS: BP 139/93
[2016-12-10] MEDS ORDERED: ACETAMINOPHEN TAB 325 MG TAB PO ONE (12:11)
--- NOTE | 2016-12-11 11:37 | OP ---
DATE OF SURGERY: 12/10/2016 SURGEON: Branden Sauer MD [employer] PHOTOGRAPHER: PREOPERATIVE DIAGNOSIS: Nuclear sclerosis, cortical sclerosis. POSTOPERATIVE DIAGNOSIS: OPERATION: Phacoemulsification of cataract and intraocular lens implant of the right eye. OD/OS eye. ESTIMATED BLOOD LOSS: Zero. SPECIMEN TAKEN: None. NARRATIVE: After obtaining the appropriate consent, the patient was brought to the operating room where the patient was placed under cardiac monitoring and prepped and draped in the usual sterile manner. At the 11 oclock position a 15 degree super sharp blade was used to create a paracentesis followed by instillation of 1% Xylocaine MPF 50:50 mix with BSS into the anterior chamber. This was followed by Amvisc to stabilize the anterior chamber. At the 9 o clock position a self-sealing corneal flap incision was created using 2.8 mm kang keratome. A cystatome was used to initiate a continuous tear capsulorrhexis which was completed with the Utrata forceps. A Binkhorst cannula was used to hydrodissect the lens nucleus followed by hydrodelineation. Phacoemulsification of the lens was performed utilizing phacochop in 17.07 seconds at 8% power. The remaining cortical material was removed using the irrigation aspiration mode followed by additional 1% Xylocaine MPF into the anterior chamber followed by viscoelastic to stabilize the capsular bag. An [employer] PCB00 20.5 diopters posterior chamber lens was placed into the capsular bag without difficulty. The remaining viscoelastic material was removed from the anterior chamber with the irrigation/aspiration. Balanced salt solution was used to normalize the intraocular pressure. The incision was checked for watertight integrity. The patient then received two drops of 0.5% timolol followed by two drops Vigamox, was lightly patched and shielded in the usual manner. There were no complications from the procedure. The patient tolerated the procedure well and was returned to recovery in good condition. HERBERTH
== END 2016-12-10 12:57 | disposition home or self-care (01) ==
LOC: OR 08:57
PROVIDERS: ATTEND Ophthalmology
DX: H25.11 Age-related nuclear cataract, right eye (principal); H25.011 Cortical age-related cataract, right eye; I25.10 Atherosclerotic heart disease of native coronary artery without angina pectoris; I10 Essential (primary) hypertension; K21.9 Gastro-esophageal reflux disease without esophagitis; M19.90 Unspecified osteoarthritis, unspecified site; I48.91 Unspecified atrial fibrillation; H02.409 Unspecified ptosis of unspecified eyelid; H11.003 Unspecified pterygium of eye, bilateral; H02.833 Dermatochalasis of right eye, unspecified eyelid; H02.836 Dermatochalasis of left eye, unspecified eyelid; H04.123 Dry eye syndrome of bilateral lacrimal glands; H52.03 Hypermetropia, bilateral; J30.9 Allergic rhinitis, unspecified; Z95.5 Presence of coronary angioplasty implant and graft; Z87.891 Personal history of nicotine dependence; Z88.0 Allergy status to penicillin; Z88.8 Allergy status to other drugs, medicaments and biological substances; Z96.651 Presence of right artificial knee joint; Z96.649 Presence of unspecified artificial hip joint; Z79.02 Long term (current) use of antithrombotics/antiplatelets; Z79.899 Other long term (current) drug therapy; Z96.1 Presence of intraocular lens
CPT/HCPCS: 66984; C1780; J0171; J3010; J2001

== ENCOUNTER → 2017-04-08 | Outpatient (CLI) | payer MEDICARE, BC ==
[2017-04-08 11:49] LABS: Basophils # (A) 0.1 k/uL (0-0.2); Basophils % (A) 1 %; CH 32.9; CHCM 34.6; Eosinophils # (A) 0.1 k/uL (0-0.7); Eosinophils % (A) 2 %; HCT 38.4 % (39.0-53.0); HDW 2.74; HGB 12.9 gm/dL (13.0-17.5); Luc # (Auto) 0.22; Luc % (Auto) 3; Lymphocytes # (A) 1.5 k/uL (1.0-4.8); Lymphocytes % (A) 19 %; MCH 32.1 pg (25.0-35.0); MCHC 33.6 g/dL (31.0-37.0); MCV 95.5 fL (80.0-100.0); Mean Platelet Volume 6.6; Monocytes # (A) 0.5 k/uL (0-1.0); Monocytes % (A) 7 %; Neutrophils # (A) 5.5 k/uL (1.3-7.7); Neutrophils % (A) 70 %; RBC 4.02 m/uL (4.30-5.90); RDW 12.6 % (11.5-15.5); WBC 7.9 k/uL (3.8-10.6); WBC (Perox) 8.11
[2017-04-08 12:42] LABS: ALT 27 U/L (21-72); Anion Gap 9 mmol/L; Blood Urea Nitrogen 29 mg/dL (9-20); Carbon Dioxide 25 mmol/L (22-30); Chloride 106 mmol/L (98-107); Cholesterol 207 mg/dL (<200); Glucose 97 mg/dL (74-99); HDL Cholesterol 42 mg/dL (40-60); Non-African American GFR(MDRD) 58 (>60 ml/min/1.73 sqM); Potassium 4.5 mmol/L (3.5-5.1); Sodium 140 mmol/L (137-145)
== END | disposition home or self-care (01) ==
LOC: LABWHC1 10:31
PROVIDERS: ATTEND Internal Medicine Cardiovascular Disease
DX: I25.10 Atherosclerotic heart disease of native coronary artery without angina pectoris (principal); E78.5 Hyperlipidemia, unspecified; I34.0 Nonrheumatic mitral (valve) insufficiency; R06.02 Shortness of breath; Z79.899 Other long term (current) drug therapy
CPT/HCPCS: 36415; 80051; 80061; 82565; 82947; 83880; 84443; 84460; 84520; 85025

== ENCOUNTER → 2017-06-10 | Outpatient (CLI) | payer MEDICARE, BC ==
--- NOTE | 2017-06-10 16:08 | XR ---
Cervical spine HISTORY: Posterior neck pain with limited range of motion 5 views of the cervical spine Odontoid view is somewhat limited. There is multilevel spondylosis present. Loss of disc height prese nt at C3-4, C4-5, C5-6 and C6-7. C7-T1 is not well seen. Anterolisthesis grade 1 C5-6. Prevertebral s oft tissues are normal. There may be a spinal curvature in the thoracic spine. Foraminal encroachment suspected at C3-4, C4-5 and C5-6, C6-7. One oblique view is not seen. IMPRESSION: Degenerative disc disease and facet arthropathy. Limitations as described.
== END | disposition home or self-care (01) ==
LOC: RADXRYALE 12:59
PROVIDERS: ATTEND Internal Medicine
DX: M50.30 Other cervical disc degeneration, unspecified cervical region (principal); M46.92 Unspecified inflammatory spondylopathy, cervical region
CPT/HCPCS: 72050

== ENCOUNTER 2017-09-16 12:01 | Emergency (ER) | payer MEDICARE, BC ==
--- NOTE | 2017-09-16 12:10 | ED ---
General Adult HPI - General Stated complaint: AFIB Time Seen by Provider: 09/16/17 12:01 Source: RN notes reviewed - History of Present Illness Initial comments: This is an 82-year-old male who presents emergency Department with a past medical history significant for atrial fibrillation. Patient was taken off his flecainide about a week ago by his edge molder and this morning at about 9:00 he started feeling his heart racing became lightheaded and dizzy and mildly short of breath. Patient converted to a normal sinus rhythm about half hour prior to arrival. Patient currently states he has no symptoms. Patient denies chest pain palpitations difficulty breathing or shortness of breath. Patient is requesting to go home before I even see him. Patient states he does not want to stay in the hospital because his symptoms have completely resolved and he believes he knows it was his A. fib because the paramedics caught it on a rhythm strip. Patient denies any recent fever chills or cough. Patient denies any abdominal pain patient denies nausea vomiting diarrhea. - Related Data Home Medications Medication Instructions Recorded Confirmed Apixaban [Eliquis] 2.5 mg PO BID 01/17/16 09/16/17 Cholecalciferol [Vitamin D3] 2,000 unit PO DAILY 01/17/16 09/16/17 Meclizine [Antivert] 25 mg PO BID PRN 01/17/16 09/16/17 Vitamin A 10,000 unit PO DAILY 03/18/16 09/16/17 Flecainide Acetate [Tambocor] 50 mg PO ONCE 04/22/16 09/16/17 Metoprolol Tartrate [Lopressor] 12.5 mg PO QAM 04/22/16 09/16/17 Nitroglycerin Sl Tabs [Nitrostat] 0.4 mg SUBLINGUAL Q5M PRN 04/22/16 09/16/17 Ighpefdeib-LGX-Ahzgzcg-Codeine 1 - 2 cap PO TID PRN 12/03/16 09/16/17 [Fiorinal w/Cod 41-530-00-30MG] HYDROcodone/APAP 5-325MG [[place] 1 tab PO DAILY 09/16/17 09/16/17 5-325] Previous Rx's Medication Instructions Recorded Metoprolol Tartrate [Lopressor] 25 mg PO BID #20 tablet 09/16/17 Allergies Allergy/AdvReac Type Severity Reaction Status Date / Time diltiazem HCl [From Cardizem] Allergy Rash/Hives Verified 09/16/17 12:59 Penicillins Allergy Swelling Verified 09/16/17 12:59 Review of Systems ROS Statement: Those systems with pertinent positive or pertinent negative responses have been documented in the HPI. ROS Other: All systems not noted in ROS Statement are negative. Past Medical History Past Medical History: Atrial Fibrillation, Coronary Artery Disease (CAD), Cancer , GERD/Reflux, Hyperlipidemia, Hypertension, Memory Impairment, Osteoarthritis ( OA), Skin Disorder Additional Past Medical History / Comment(s): skin cancer, psoriasis, sinus problems,diverticulitis, bulging discs-back pain. DENIES ANY [place] PREVIOUSLY RECORDED - SHE IS CHECKING WITH Last Myocardial Infarction Date:: 01/27/15 History of Any Multi-Drug Resistant Organisms: None Reported Past Surgical History: Heart Catheterization With Stent, Joint Replacement Additional Past Surgical History / Comment(s): cardiac stents x2, right knee replacement, Revision total R knee, right quadricep tendon rupture with repair , hemorroidectomy, colonoscopy/egd, lt inguinal hernia, hip replacement, left eye cataract removed Past Anesthesia/Blood Transfusion Reactions: Previous Problems w/ Anesthesia Additional Past Anesthesia/Blood Transfusion Reaction / Comment(s): "DISORIENTATION AFTER RECEIVING ANESTHESIA FOR A COUPLE OF DAYS" Date of Last Stent Placement:: 2015 Smoking Status: Former smoker - Past Family History Sister(s) Family Medical History: Cancer Brother(s) Family Medical History: Cancer Father Family Medical History: No Reported History Additional Family Medical History / Comment(s): was smoker, from pneumonia at age 82 yrs. Mother Family Medical History: Cancer Additional Family Medical History / Comment(s): . General Exam - General Exam Comments Initial Comments: GENERAL: Patient is well-developed and well-nourished. Patient is nontoxic and well- hydrated and is in no acute distress ENT: Neck is soft and supple. No significant lymphadenopathy is noted. Oropharynx is clear. Moist mucous membranes. Neck has full range of motion without eliciting any pain. EYES: The sclera were anicteric and conjunctiva were pink and moist. Extraocular movements were intact and pupils were equal round and reactive to light. Eyelids were unremarkable. PULMONARY: Unlabored respirations. Good breath sounds bilaterally. No audible rales rhonchi or wheezing was noted. CARDIOVASCULAR: There is a regular rate and rhythm without any murmurs gallops or rubs. ABDOMEN: Soft and nontender with normal bowel sounds. No palpable organomegaly was noted. There is no palpable pulsatile mass. SKIN: Skin is clear with no lesions or rashes and otherwise unremarkable. NEUROLOGIC: Patient is alert and oriented x3. Cranial nerves II through XII are grossly intact. Motor and sensory are also intact. Normal speech, volume and content. Symmetrical smile. MUSCULOSKELETAL: Normal extremities with adequate strength and full range of motion. LYMPHATICS: No significant lymphadenopathy is noted PSYCHIATRIC: Normal psychiatric evaluation. Course Vital Signs 09/16/17 09/16/17 12:27 13:09 Temperature 98.6 F Pulse Rate 52 L 55 L Respiratory 16 18 Rate Blood Pressure 124/52 97/91 O2 Sat by Pulse 98 97 Oximetry Medical Decision Making - Medical Decision Making I spoke with Dr. Carrillo the patient's edge molder and he stated he took the patient off a flecainide because the patient remained in A. fib on flecainide. Dr. Carrillo wanted the patient to increase his Lopressor from 12.5 once a day to 25 twice a day. Patient's EKG shows sinus bradycardia at 57 bpm CO interval 192 QRS is 74 Q-T intervals 428 QTC is 416. Patient's EKG shows no ST segment elevation or depression or T wave abnormalities are noted. Patient was asymptomatic throughout his ED course. Patient does not want to stay his edge molder recommended that he start taking his Lopressor 25 g twice a day. I will initially started with 12.5 twice a day because his heart rate is about 60 and he can follow-up with his edge molder if he needs had increased. - Lab Data Result diagrams: 09/16/17 12:30 09/16/17 12:30 Lab Results 09/16/17 09/16/17 09/16/17 Range/Units 12:30 12:30 12:30 WBC 8.9 (3.8-10.6) k/uL RBC 4.04 L (4.30-5.90) m/uL Hgb 12.8 L (13.0-17.5) gm/dL Hct 37.1 L (39.0-53.0) % MCV 91.7 (80.0-100.0) fL MCH 31.7 (25.0-35.0) pg MCHC 34.6 (31.0-37.0) g/dL RDW 12.6 (11.5-15.5) % Plt Count 237 (150-450) k/uL Neutrophils % 68 % Lymphocytes % 20 % Monocytes % 7 % Eosinophils % 3 % Basophils % 0 % Neutrophils # 6.1 (1.3-7.7) k/uL Lymphocytes # 1.8 (1.0-4.8) k/uL Monocytes # 0.6 (0-1.0) k/uL Eosinophils # 0.2 (0-0.7) k/uL Basophils # 0.0 (0-0.2) k/uL PT (9.0-12.0) sec INR (<1.2) APTT (22.0-30.0) sec Sodium 149 H (137-145) mmol/L Potassium 4.5 (3.5-5.1) mmol/L Chloride 109 H (98-107) mmol/L Carbon Dioxide 23 (22-30) mmol/L Anion Gap 17 mmol/L BUN 28 H (9-20) mg/dL Creatinine 1.09 (0.66-1.25) mg/dL Est GFR (CKD-EPI)AfAm 72 (>60 ml/min/1.73 sqM) Est GFR (CKD-EPI)NonAf 62 (>60 ml/min/1.73 sqM) Glucose 101 H (74-99) mg/dL Calcium 9.0 (8.4-10.2) mg/dL Magnesium 2.0 (1.6-2.3) mg/dL Total Bilirubin 0.5 (0.2-1.3) mg/dL AST 20 (17-59) U/L ALT 18 L (21-72) U/L Alkaline Phosphatase 48 (38-126) U/L Total Creatine Kinase 37 L (55-170) U/L CK-MB (CK-2) <0.2 (0.0-2.4) ng/mL CK-MB (CK-2) Rel Index Troponin I 0.018 (0.000-0.034) ng/mL Total Protein 6.2 L (6.3-8.2) g/dL Albumin 3.6 (3.5-5.0) g/dL 09/16/17 Range/Units 12:30 WBC (3.8-10.6) k/uL RBC (4.30-5.90) m/uL Hgb (13.0-17.5) gm/dL Hct (39.0-53.0) % MCV (80.0-100.0) fL MCH (25.0-35.0) pg MCHC (31.0-37.0) g/dL RDW (11.5-15.5) % Plt Count (150-450) k/uL Neutrophils % % Lymphocytes % % Monocytes % % Eosinophils % % Basophils % % Neutrophils # (1.3-7.7) k/uL Lymphocytes # (1.0-4.8) k/uL Monocytes # (0-1.0) k/uL Eosinophils # (0-0.7) k/uL Basophils # (0-0.2) k/uL PT 10.3 (9.0-12.0) sec INR 1.1 (<1.2) APTT 23.6 (22.0-30.0) sec Sodium (137-145) mmol/L Potassium (3.5-5.1) mmol/L Chloride (98-107) mmol/L Carbon Dioxide (22-30) mmol/L Anion Gap mmol/L BUN (9-20) mg/dL Creatinine (0.66-1.25) mg/dL Est GFR (CKD-EPI)AfAm (>60 ml/min/1.73 sqM) Est GFR (CKD-EPI)NonAf (>60 ml/min/1.73 sqM) Glucose (74-99) mg/dL Calcium (8.4-10.2) mg/dL Magnesium (1.6-2.3) mg/dL Total Bilirubin (0.2-1.3) mg/dL AST (17-59) U/L ALT (21-72) U/L Alkaline Phosphatase (38-126) U/L Total Creatine Kinase (55-170) U/L CK-MB (CK-2) (0.0-2.4) ng/mL CK-MB (CK-2) Rel Index Troponin I (0.000-0.034) ng/mL Total Protein (6.3-8.2) g/dL Albumin (3.5-5.0) g/dL Disposition Clinical Impression: Atrial fibrillation with rapid ventricular response Disposition: HOME SELF-CARE Instructions: [place] (Atrial Fibrillation) (ED) Additional Instructions: Patient should start taking Lopressor 25 mg twice a day and follow up with his edge molder for any further increases. Prescriptions: Metoprolol Tartrate [Lopressor] 25 mg PO BID #20 tablet Is patient prescribed a controlled substance at d/c from ED?: No Referrals: Neelima Toledo MD [Primary Care Provider] - 1-2 days Time of Disposition: 13:35
[2017-09-16] MEDS ORDERED: METOPROLOL TARTRATE 12.5 MG TAB PO STA (12:38)
[2017-09-16 12:50] LABS: Basophils % (A) 0 %; Eosinophils # (A) 0.2 k/uL (0-0.7); Eosinophils % (A) 3 %; HCT 37.1 % (39.0-53.0); HGB 12.8 gm/dL (13.0-17.5); Lymphocytes # (A) 1.8 k/uL (1.0-4.8); Lymphocytes % (A) 20 %; MCH 31.7 pg (25.0-35.0); MCHC 34.6 g/dL (31.0-37.0); MCV 91.7 fL (80.0-100.0); Mean Platelet Volume 7.5; Monocytes # (A) 0.6 k/uL (0-1.0); Monocytes % (A) 7 %; Neutrophils # (A) 6.1 k/uL (1.3-7.7); Neutrophils % (A) 68 %; Platelet Count 237 k/uL (150-450); RBC 4.04 m/uL (4.30-5.90); RDW 12.6 % (11.5-15.5); WBC 8.9 k/uL (3.8-10.6)
--- NOTE | 2017-09-16 12:52 | XR ---
EXAMINATION TYPE: XR chest 2V DATE OF EXAM: 09/16/2017 COMPARISON: 10/26/2016 TECHNIQUE: PA and lateral views submitted. HISTORY: Dysrhythmia FINDINGS: The lungs are clear and there is no pneumothorax, pleural effusion, or focal pneumonia. Hyperinflat ion suggests COPD. Arthropathy of the shoulders and diffuse osteopenia. Hypertrophic and degenerative change of the spine. Coronary artery stenting noted. IMPRESSION: 1. No acute process.
[2017-09-16 12:59] LABS: Albumin 3.6 g/dL (3.5-5.0); Potassium 4.5 mmol/L (3.5-5.1); Total Bilirubin 0.5 mg/dL (0.2-1.3); Total Protein 6.2 g/dL (6.3-8.2)
[2017-09-16 13:03] LABS: INR 1.1 (<1.2); Partial Thromboplastin Time 23.6 sec (22.0-30.0); Prothrombin Time 10.3 sec (9.0-12.0)
[2017-09-16 13:07] LABS: Creatine Kinase 37 U/L (55-170)
[2017-09-16 13:12] VITALS: RESP 18
[2017-09-16 13:21] LABS: Creatine Kinase MB <0.2 ng/mL (0.0-2.4); Troponin I 0.018 ng/mL (0.000-0.034)
[2017-09-16 14:13] VITALS: BP 126/58; PULSE 59; TEMP 97.6
== END 2017-09-16 14:11 | disposition home or self-care (01) ==
LOC: EC 12:01
DX: I48.91 Unspecified atrial fibrillation (principal); R00.1 Bradycardia, unspecified; I25.10 Atherosclerotic heart disease of native coronary artery without angina pectoris; I10 Essential (primary) hypertension; M19.90 Unspecified osteoarthritis, unspecified site; Z85.828 Personal history of other malignant neoplasm of skin; Z87.891 Personal history of nicotine dependence; Z79.891 Long term (current) use of opiate analgesic; Z79.899 Other long term (current) drug therapy; Z79.01 Long term (current) use of anticoagulants; Z96.652 Presence of left artificial knee joint; Z95.5 Presence of coronary angioplasty implant and graft; Z53.8 Procedure and treatment not carried out for other reasons
CPT/HCPCS: 36415; 71046; 80053; 82550; 82553; 83735; 84484; 85025; 85610; 85730; 93005; 99284

== ENCOUNTER 2017-12-09 15:33 | Inpatient (IN) | payer MEDICARE, BC ==
[2017-12-09] MEDS ORDERED: SODIUM CHLORIDE 0.9% 1,000 ML IV STA ×2 (15:55)
[2017-12-09] MEDS ORDERED: SODIUM CHLORIDE 0.9% 500 ML IV STA (15:55)
[2017-12-09] MEDS ORDERED: DILTIAZEM DRIP BOLUS FROM BAG 1 MG SOLN IV ONE (16:13)
--- NOTE | 2017-12-09 16:13 | ED ---
General Adult HPI - General Chief complaint: Dizziness Stated complaint: hypotension Time Seen by Provider: 12/09/17 15:50 Source: patient, EMS, RN notes reviewed, old records reviewed Mode of arrival: EMS Limitations: no limitations - History of Present Illness Initial comments: This is an 82-year-old male to the ER for evaluation. Patient presents today for evaluation regarding near syncopal event, weakness, dizziness. Patient has no significant travel history. No significant recent medication changes. Patient was seen his family doctor's office earlier today for follow-up. At that point patient was noted to be very lightheaded dizzy, weak or walking in the hospital, landing on his feet. Patient has no fever cough or congestion. Patient does admit to symptoms worsening over 2 days to about the last week. - Related Data Home Medications Medication Instructions Recorded Confirmed Apixaban [Eliquis] 2.5 mg PO BID 01/17/16 12/09/17 Cholecalciferol [Vitamin D3] 2,000 unit PO DAILY 01/17/16 12/09/17 Meclizine [Antivert] 25 mg PO BID PRN 01/17/16 12/09/17 Vitamin A 10,000 unit PO DAILY 03/18/16 12/09/17 Nitroglycerin Sl Tabs [Nitrostat] 0.4 mg SUBLINGUAL Q5M PRN 04/22/16 12/09/17 Dvsvijoxcy-JUB-Kczdvri-Codeine 1 - 2 cap PO TID PRN 12/03/16 12/09/17 [Fiorinal w/Cod 77-581-69-30MG] HYDROcodone/APAP 5-325MG [[place] 1 tab PO DAILY PRN 09/16/17 12/09/17 5-325] Pravastatin Sodium [Pravachol] 10 mg PO HS 12/09/17 12/09/17 Previous Rx's Medication Instructions Recorded Metoprolol Tartrate [Lopressor] 25 mg PO BID #20 tablet 09/16/17 Allergies Allergy/AdvReac Type Severity Reaction Status Date / Time diltiazem HCl [From Cardizem] Allergy Rash/Hives Verified 12/09/17 16:08 Penicillins Allergy Swelling Verified 12/09/17 16:08 Review of Systems ROS Statement: Those systems with pertinent positive or pertinent negative responses have been documented in the HPI. ROS Other: All systems not noted in ROS Statement are negative. Past Medical History Past Medical History: Atrial Fibrillation, Coronary Artery Disease (CAD), Cancer , GERD/Reflux, Hyperlipidemia, Hypertension, Memory Impairment, Osteoarthritis ( OA), Skin Disorder Additional Past Medical History / Comment(s): skin cancer, psoriasis, sinus problems,diverticulitis, bulging discs-back pain. DENIES ANY [place] PREVIOUSLY RECORDED - SHE IS CHECKING WITH Last Myocardial Infarction Date:: 01/27/15 History of Any Multi-Drug Resistant Organisms: None Reported Past Surgical History: Heart Catheterization With Stent, Joint Replacement Additional Past Surgical History / Comment(s): cardiac stents x2, right knee replacement, Revision total R knee, right quadricep tendon rupture with repair , hemorroidectomy, colonoscopy/egd, lt inguinal hernia, hip replacement, left eye cataract removed Past Anesthesia/Blood Transfusion Reactions: Previous Problems w/ Anesthesia Additional Past Anesthesia/Blood Transfusion Reaction / Comment(s): "DISORIENTATION AFTER RECEIVING ANESTHESIA FOR A COUPLE OF DAYS" Date of Last Stent Placement:: 2015 Past Psychological History: No Psychological Hx Reported Smoking Status: Former smoker Past Alcohol Use History: None Reported Past Drug Use History: None Reported - Past Family History Sister(s) Family Medical History: Cancer Brother(s) Family Medical History: Cancer Father Family Medical History: No Reported History Additional Family Medical History / Comment(s): was smoker, from pneumonia at age 82 yrs. Mother Family Medical History: Cancer Additional Family Medical History / Comment(s): . General Exam Limitations: no limitations General appearance: alert, in no apparent distress Head exam: Present: atraumatic, normocephalic, normal inspection Eye exam: Present: normal appearance, PERRL, EOMI. Absent: scleral icterus, conjunctival injection, periorbital swelling ENT exam: Present: normal exam, mucous membranes moist Neck exam: Present: normal inspection. Absent: tenderness, meningismus, lymphadenopathy Respiratory exam: Present: normal lung sounds bilaterally. Absent: respiratory distress, wheezes, rales, rhonchi, stridor Cardiovascular Exam: Present: regular rate, normal rhythm, normal heart sounds. Absent: systolic murmur, diastolic murmur, rubs, gallop, clicks GI/Abdominal exam: Present: soft, normal bowel sounds. Absent: distended, tenderness, guarding, rebound, rigid Extremities exam: Present: normal inspection, full ROM, normal capillary refill. Absent: tenderness, pedal edema, joint swelling, calf tenderness Back exam: Present: normal inspection Neurological exam: Present: alert, oriented X3, CN II-XII intact Psychiatric exam: Present: normal affect, normal mood Skin exam: Present: warm, dry, intact, normal color. Absent: rash Course Vital Signs 12/09/17 12/09/17 12/09/17 15:40 16:28 17:15 Temperature 98 F Pulse Rate 83 84 103 H Pulse Rate [ Right Sitting Pulse Oximetery ] Pulse Rate [ Right Standing Pulse Oximetery ] Pulse Rate [ Right Supine Pulse Oximetery ] Respiratory 18 18 18 Rate Blood Pressure 107/57 107/68 134/76 Blood Pressure [Right Arm Sitting] Blood Pressure [Right Arm Standing] Blood Pressure [Right Arm Supine] O2 Sat by Pulse 97 98 99 Oximetry 12/09/17 17:40 Temperature Pulse Rate Pulse Rate [ 105 H Right Sitting Pulse Oximetery ] Pulse Rate [ 102 H Right Standing Pulse Oximetery ] Pulse Rate [ 82 Right Supine Pulse Oximetery ] Respiratory Rate Blood Pressure Blood Pressure 106/65 [Right Arm Sitting] Blood Pressure 96/71 [Right Arm Standing] Blood Pressure 113/64 [Right Arm Supine] O2 Sat by Pulse Oximetry - Reevaluation(s) Reevaluation #1: 12/09/17 18:36 Patient has orthostatic hypotension at this time. Symptoms significantly worse with standing. Near syncopal EKG Findings - EKG Comments: EKG Findings:: EKG shows atrial fibrillation with RVR rate 1:15, QRS 68, QTc 453 Medical Decision Making - Medical Decision Making 82 male to the ER for evaluation of weakness hypotension near syncopal event. Patient be admitted for continued IV hydration and monitoring of hemodynamic status - Lab Data Result diagrams: 12/09/17 16:01 12/09/17 16:01 Lab Results 12/09/17 12/09/17 12/09/17 Range/Units 16:01 16:01 16:01 WBC 7.1 (3.8-10.6) k/uL RBC 4.10 L (4.30-5.90) m/uL Hgb 13.2 (13.0-17.5) gm/dL Hct 38.1 L (39.0-53.0) % MCV 92.9 (80.0-100.0) fL MCH 32.3 (25.0-35.0) pg MCHC 34.7 (31.0-37.0) g/dL RDW 13.0 (11.5-15.5) % Plt Count 255 (150-450) k/uL Neutrophils % 65 % Lymphocytes % 20 % Monocytes % 8 % Eosinophils % 4 % Basophils % 1 % Neutrophils # 4.6 (1.3-7.7) k/uL Lymphocytes # 1.4 (1.0-4.8) k/uL Monocytes # 0.6 (0-1.0) k/uL Eosinophils # 0.3 (0-0.7) k/uL Basophils # 0.0 (0-0.2) k/uL PT (9.0-12.0) sec INR (<1.2) APTT (22.0-30.0) sec Sodium 142 (137-145) mmol/L Potassium 4.6 (3.5-5.1) mmol/L Chloride 109 H (98-107) mmol/L Carbon Dioxide 22 (22-30) mmol/L Anion Gap 11 mmol/L BUN 27 H (9-20) mg/dL Creatinine 1.40 H (0.66-1.25) mg/dL Est GFR (CKD-EPI)AfAm 53 (>60 ml/min/1.73 sqM) Est GFR (CKD-EPI)NonAf 46 (>60 ml/min/1.73 sqM) Glucose 103 H (74-99) mg/dL Plasma Lactic Acid Joe (0.7-2.0) mmol/L Calcium 9.2 (8.4-10.2) mg/dL Phosphorus 4.1 (2.5-4.5) mg/dL Magnesium 2.1 (1.6-2.3) mg/dL Total Bilirubin 0.3 (0.2-1.3) mg/dL AST 22 (17-59) U/L ALT 27 (21-72) U/L Alkaline Phosphatase 46 (38-126) U/L Total Creatine Kinase 46 L (55-170) U/L CK-MB (CK-2) <0.2 (0.0-2.4) ng/mL CK-MB (CK-2) Rel Index Troponin I 0.014 (0.000-0.034) ng/mL Total Protein 6.5 (6.3-8.2) g/dL Albumin 3.6 (3.5-5.0) g/dL TSH 3.510 (0.465-4.680) mIU/L Urine Color Urine Appearance (Clear) Urine pH (5.0-8.0) Ur Specific [place] (1.001-1.035) Urine Protein (Negative) Urine Glucose (UA) (Negative) Urine Ketones (Negative) Urine Blood (Negative) Urine Nitrite (Negative) Urine Bilirubin (Negative) Urine Urobilinogen (<2.0) mg/dL Ur Leukocyte Esterase (Negative) Urine WBC (0-5) /hpf Ur Squamous Epith Cells (0-4) /hpf Hyaline Casts (0-2) /lpf Granular Casts (0) /lpf Urine Mucus (None) /hpf 12/09/17 12/09/17 12/09/17 Range/Units 16:01 16:01 16:50 WBC (3.8-10.6) k/uL RBC (4.30-5.90) m/uL Hgb (13.0-17.5) gm/dL Hct (39.0-53.0) % MCV (80.0-100.0) fL MCH (25.0-35.0) pg MCHC (31.0-37.0) g/dL RDW (11.5-15.5) % Plt Count (150-450) k/uL Neutrophils % % Lymphocytes % % Monocytes % % Eosinophils % % Basophils % % Neutrophils # (1.3-7.7) k/uL Lymphocytes # (1.0-4.8) k/uL Monocytes # (0-1.0) k/uL Eosinophils # (0-0.7) k/uL Basophils # (0-0.2) k/uL PT 10.3 (9.0-12.0) sec INR 1.0 (<1.2) APTT 23.5 (22.0-30.0) sec Sodium (137-145) mmol/L Potassium (3.5-5.1) mmol/L Chloride (98-107) mmol/L Carbon Dioxide (22-30) mmol/L Anion Gap mmol/L BUN (9-20) mg/dL Creatinine (0.66-1.25) mg/dL Est GFR (CKD-EPI)AfAm (>60 ml/min/1.73 sqM) Est GFR (CKD-EPI)NonAf (>60 ml/min/1.73 sqM) Glucose (74-99) mg/dL Plasma Lactic Acid Joe 2.4 H* (0.7-2.0) mmol/L Calcium (8.4-10.2) mg/dL Phosphorus (2.5-4.5) mg/dL Magnesium (1.6-2.3) mg/dL Total Bilirubin (0.2-1.3) mg/dL AST (17-59) U/L ALT (21-72) U/L Alkaline Phosphatase (38-126) U/L Total Creatine Kinase (55-170) U/L CK-MB (CK-2) (0.0-2.4) ng/mL CK-MB (CK-2) Rel Index Troponin I (0.000-0.034) ng/mL Total Protein (6.3-8.2) g/dL Albumin (3.5-5.0) g/dL TSH (0.465-4.680) mIU/L Urine Color Yellow Urine Appearance Cloudy (Clear) Urine pH 5.5 (5.0-8.0) Ur Specific [place] 1.019 (1.001-1.035) Urine Protein Trace H (Negative) Urine Glucose (UA) Negative (Negative) Urine Ketones Negative (Negative) Urine Blood Negative (Negative) Urine Nitrite Negative (Negative) Urine Bilirubin Negative (Negative) Urine Urobilinogen <2.0 (<2.0) mg/dL Ur Leukocyte Esterase Negative (Negative) Urine WBC 3 (0-5) /hpf Ur Squamous Epith Cells <1 (0-4) /hpf Hyaline Casts 51 H (0-2) /lpf Granular Casts 4 (0) /lpf Urine Mucus Rare H (None) /hpf Disposition Clinical Impression: Palpitations, CAD (coronary artery disease), Dehydration, Orthostatic hypotension, Near syncope Disposition: ADMITTED IP TO THIS [facility] Condition: Fair Is patient prescribed a controlled substance at d/c from ED?: No Referrals: Neelima Toledo MD [Primary Care Provider] - 1-2 days
[2017-12-09] MEDS ORDERED: DILTIAZEM 50 MG in SODIUM CHLORIDE 0.9% 40 ML IV SCH (16:15)
[2017-12-09 16:19] LABS: Basophils % (A) 1 %; Eosinophils # (A) 0.3 k/uL (0-0.7); Eosinophils % (A) 4 %; HCT 38.1 % (39.0-53.0); HGB 13.2 gm/dL (13.0-17.5); Lymphocytes # (A) 1.4 k/uL (1.0-4.8); Lymphocytes % (A) 20 %; MCH 32.3 pg (25.0-35.0); MCHC 34.7 g/dL (31.0-37.0); MCV 92.9 fL (80.0-100.0); Mean Platelet Volume 6.4; Monocytes # (A) 0.6 k/uL (0-1.0); Monocytes % (A) 8 %; Neutrophils # (A) 4.6 k/uL (1.3-7.7); Neutrophils % (A) 65 %; Platelet Count 255 k/uL (150-450); WBC 7.1 k/uL (3.8-10.6)
[2017-12-09 16:27] LABS: Partial Thromboplastin Time 23.5 sec (22.0-30.0); Prothrombin Time 10.3 sec (9.0-12.0)
[2017-12-09 16:36] LABS: Albumin 3.6 g/dL (3.5-5.0); Calcium 9.2 mg/dL (8.4-10.2); Magnesium 2.1 mg/dL (1.6-2.3); Phosphorus 4.1 mg/dL (2.5-4.5); Potassium 4.6 mmol/L (3.5-5.1); Total Bilirubin 0.3 mg/dL (0.2-1.3); Total Protein 6.5 g/dL (6.3-8.2)
[2017-12-09 16:41] LABS: Creatine Kinase 46 U/L (55-170)
[2017-12-09 16:54] LABS: Creatine Kinase MB <0.2 ng/mL (0.0-2.4); Troponin I 0.014 ng/mL (0.000-0.034)
[2017-12-09 17:05] LABS: Appearance,Urine Cloudy (Clear); Bilirubin,Urine Negative (Negative); Blood,Urine Negative (Negative); Color,Urine Yellow; Glucose,Urine (UA) Negative (Negative); Granular Casts,Urine 4 /lpf (0); Hyaline Casts,Urine 51 /lpf (0-2); Ketones,Urine Negative (Negative); Leukocyte Esterase,Urine Negative (Negative); Mucus,Urine Rare /hpf; Nitrite,Urine Negative (Negative); PH, Urine 5.5 (5.0-8.0); Protein,Urine Trace (Negative); Specific Gravity,Urine 1.019 (1.001-1.035); Squamous Epithelial Cell,Urine <1 /hpf (0-4); Urobilinogen,Urine <2.0 mg/dL (<2.0); WBC,Urine 3 /hpf (0-5)
[2017-12-09] MEDS ORDERED: NITROGLYCERIN SL TABS 0.4 MG TAB SUBLINGUAL PRN (18:33)
[2017-12-09] MEDS: SODIUM CHLORIDE 0.9% 1,000 ML IV SCH (19:13)
[2017-12-09] MEDS ORDERED: HYDROcodone/APAP 5-325MG 1 EACH TAB PO PRN (20:27)
[2017-12-09] MEDS ORDERED: MECLIZINE 25 MG TAB PO PRN (20:27)
[2017-12-09 20:44] VITALS: BMI 24.7
[2017-12-09] MEDS ORDERED: cefTRIAXone IN SWFI 1,000 MG/10 ML SYRINGE IVP STA (20:52)
[2017-12-09] MEDS: APIXABAN 2.5 MG TABLET PO SCH (20:58)
[2017-12-09] MEDS: METOPROLOL TARTRATE 25 MG TAB PO SCH (20:59)
[2017-12-10 03:59] LABS: Creatine Kinase 39 U/L (55-170); Creatine Kinase MB 0.3 ng/mL (0.0-2.4); Troponin I <0.012 ng/mL (0.000-0.034)
[2017-12-10 04:01] LABS: Creatine Kinase MB 0.3 ng/mL (0.0-2.4); Troponin I 0.016 ng/mL (0.000-0.034)
[2017-12-10] MEDS: SODIUM CHLORIDE 0.9% 1,000 ML IV SCH ×2 (04:42→15:22)
[2017-12-10 06:49] LABS: Cholesterol 142 mg/dL (<200); HDL Cholesterol 28 mg/dL (40-60); LDL Cholesterol,Calculated 83 mg/dL (0-99); Triglycerides 155 mg/dL (<150)
[2017-12-10] MEDS: APIXABAN 2.5 MG TABLET PO SCH ×2 (07:03→17:13)
[2017-12-10] MEDS: METOPROLOL TARTRATE 25 MG TAB PO SCH ×2 (08:42→20:54)
[2017-12-10] MEDS: CHOLECALCIFEROL 1,000 UNIT TAB PO SCH (08:42)
--- NOTE | 2017-12-10 09:28 | P.CRDCN ---
History of Present Illness Consult date: 12/10/17 Requesting physician: Johann Fernandez Reason for Consult (text): Dizziness Chief complaint: Dizziness History of present illness: This is an 82-year-old gentleman with known history of paroxysmal atrial fibrillation, hypertension, hyperlipidemia, coronary artery disease with prior LAD and circumflex stenting, vertigo, GERD, consents to the hospital on this occasion with severe dizziness. Patient denies having any chest discomfort , overall breathing is stable. He denies any syncope. He states that he has dizziness occasionally but this is much more severe, or swelling over the past 2 days. EKG on arrival here showed atrial fibrillation with a moderately rapid ventricular response. Subsequent EKG shows a sinus bradycardia with a heart rate in the 50s. Blood pressure on admission 108/50, heart rate in the 80s, 97 % on room air. The set of orthostatics were obtained, blood pressure lying 113/ 60, sitting 106/60, standing 96/70. Laboratory data was reviewed, white blood cell count 7.1, hemoglobin 13.2, platelet count 255. Sodium 142, potassium 4.6 , BUN 27, creatinine 1.4. Troponins 0.014, 0.12, 0.016. TSH was normal. Cholesterol 142, triglycerides 155, LDL 83, HDL 28. Patient's home medications include Pravachol 10 mg daily, Antivert 25 mg when necessary, metoprolol 25 mg one tablet by mouth twice a day, vitamin D, Eliquis 2 and a half milligrams one tablet by mouth twice a day. At the time of my examination this morning, patient feels tired, mild dizziness, no palpitations, no chest discomfort, breathing is stable. Past Medical History Past Medical History: Atrial Fibrillation, Coronary Artery Disease (CAD), Cancer , GERD/Reflux, Hyperlipidemia, Hypertension, Memory Impairment, Osteoarthritis ( OA), Skin Disorder Additional Past Medical History / Comment(s): skin cancer, psoriasis, sinus problems,diverticulitis, bulging discs-back pain. DENIES ANY WA PREVIOUSLY RECORDED - SHE IS CHECKING WITH Last Myocardial Infarction Date:: 01/27/15 History of Any Multi-Drug Resistant Organisms: None Reported Past Surgical History: Heart Catheterization With Stent, Joint Replacement Additional Past Surgical History / Comment(s): cardiac stents x2, right knee replacement, Revision total R knee, right quadricep tendon rupture with repair , hemorroidectomy, colonoscopy/egd, lt inguinal hernia, hip replacement, left eye cataract removed Past Anesthesia/Blood Transfusion Reactions: Previous Problems w/ Anesthesia Additional Past Anesthesia/Blood Transfusion Reaction / Comment(s): "DISORIENTATION AFTER RECEIVING ANESTHESIA FOR A COUPLE OF DAYS" Date of Last Stent Placement:: 2015 Past Psychological History: No Psychological Hx Reported Additional Psychological History / Comment(s): Pt resides with his spouse. He uses a cane to ambulate. He states he performs his own ADLs and manages his own medication. Smoking Status: Former smoker Past Alcohol Use History: None Reported Additional Past Alcohol Use History / Comment(s): started smoking at age 18- quit (1977) SMOKED 1/2- 1PPD Past Drug Use History: None Reported - Past Family History Sister(s) Family Medical History: Cancer Brother(s) Family Medical History: Cancer Additional Family Medical History / Comment(s): of lung cancer Father Family Medical History: No Reported History Additional Family Medical History / Comment(s): was smoker, from pneumonia at age 82 yrs. Mother Family Medical History: Cancer Additional Family Medical History / Comment(s): colon cancer Medications and Allergies Home Medications Medication Instructions Recorded Confirmed Type Apixaban [Eliquis] 2.5 mg PO BID 01/17/16 12/09/17 History Cholecalciferol [Vitamin D3] 2,000 unit PO DAILY 01/17/16 12/09/17 History Meclizine [Antivert] 25 mg PO BID PRN 01/17/16 12/09/17 History Vitamin A 10,000 unit PO DAILY 03/18/16 12/09/17 History Nitroglycerin Sl Tabs [Nitrostat] 0.4 mg SUBLINGUAL Q5M PRN 04/22/16 12/09/17 History Rivrismyux-IMU-Gmkriav-Codeine 1 - 2 cap PO TID PRN 12/03/16 12/09/17 History [Fiorinal w/Cod 52-903-77-30MG] HYDROcodone/APAP 5-325MG [Seanor 1 tab PO DAILY PRN 09/16/17 12/09/17 History 5-325] Metoprolol Tartrate [Lopressor] 25 mg PO BID #20 tablet 09/16/17 12/09/17 Rx Pravastatin Sodium [Pravachol] 10 mg PO HS 12/09/17 12/09/17 History Allergies Allergy/AdvReac Type Severity Reaction Status Date / Time diltiazem HCl [From Cardizem] Allergy Rash/Hives Verified 12/09/17 16:08 Penicillins Allergy Swelling Verified 12/09/17 16:08 Physical Exam Vitals: Vital Signs Temp Pulse Pulse Pulse Pulse Resp BP 12/09/17 20:00 96.4 F L 58 L 16 12/09/17 19:58 98.9 F 65 18 117/65 12/09/17 19:11 78 18 122/74 12/09/17 17:40 105 H 102 H 82 12/09/17 17:15 103 H 18 134/76 12/09/17 16:28 84 18 107/68 12/09/17 15:40 98 F 83 18 107/57 BP BP BP Pulse Ox 12/09/17 20:00 135/64 100 12/09/17 19:58 98 12/09/17 19:11 96 12/09/17 17:40 106/65 96/71 113/64 12/09/17 17:15 99 12/09/17 16:28 98 12/09/17 15:40 97 Intake and Output 12/09/17 12/10/17 12/10/17 22:59 06:59 14:59 Intake Total 800 Balance 800 Intake: IV 800 Sodium Chloride 0.9% 1, 800 000 ml @ 100 mls/hr IV . Q10H [facility] Rx#:[id number] Other: Voiding Method Toilet # Voids 1 3 Weight 78.2 kg 78.2 kg PHYSICAL EXAMINATION: GENERAL: 82-year-old gentleman in no acute distress examination HEENT: Head is atraumatic, normocephalic. Pupils equal, round. Sclera anicteric. Conjunctiva are clear. Mucous membranes of the mouth are moist. Neck is supple. There is no elevated jugular venous pressure. No carotid bruit is heard. HEART EXAMINATION: [Heart S1 and S2 systolic ejection murmur is heard CHEST EXAMINATION:[Lungs are clear to auscultation and precussion. No chest wall tenderness is noted on palpation or with deep breathing. ABDOMEN: [Soft, nontender. Bowel sounds are heard. No organomegaly noted EXTREMITIES:[2+ peripheral pulses with no evidence of peripheral edema and no calf tenderness noted NEUROLOGIC [atient is awake, alert and oriented X2. . Results 12/09/17 16:01 12/09/17 16:01 Cardiac Enzymes 12/09/17 12/09/17 12/09/17 Range/Units 16:01 16:01 21:45 AST 22 (17-59) U/L CK-MB (CK-2) <0.2 0.3 (0.0-2.4) ng/mL Troponin I 0.014 <0.012 (0.000-0.034) ng/mL 12/10/17 Range/Units 02:52 AST (17-59) U/L CK-MB (CK-2) 0.3 (0.0-2.4) ng/mL Troponin I 0.016 (0.000-0.034) ng/mL Coagulation 12/09/17 Range/Units 16:01 PT 10.3 (9.0-12.0) sec APTT 23.5 (22.0-30.0) sec Lipids 12/10/17 Range/Units 05:33 Triglycerides 155 H (<150) mg/dL Cholesterol 142 (<200) mg/dL HDL Cholesterol 28 L (40-60) mg/dL CBC 12/09/17 Range/Units 16:01 WBC 7.1 (3.8-10.6) k/uL RBC 4.10 L (4.30-5.90) m/uL Hgb 13.2 (13.0-17.5) gm/dL Hct 38.1 L (39.0-53.0) % Plt Count 255 (150-450) k/uL Comprehensive Metabolic Panel 12/09/17 Range/Units 16:01 Sodium 142 (137-145) mmol/L Potassium 4.6 (3.5-5.1) mmol/L Chloride 109 H (98-107) mmol/L Carbon Dioxide 22 (22-30) mmol/L BUN 27 H (9-20) mg/dL Creatinine 1.40 H (0.66-1.25) mg/dL Glucose 103 H (74-99) mg/dL Calcium 9.2 (8.4-10.2) mg/dL AST 22 (17-59) U/L ALT 27 (21-72) U/L Alkaline Phosphatase 46 (38-126) U/L Total Protein 6.5 (6.3-8.2) g/dL Albumin 3.6 (3.5-5.0) g/dL Current Medications Generic Name Dose Route Start Last Admin Trade Name Freq PRN Reason Stop Dose Admin Hydrocodone Bitart/Acetaminophen 1 each 12/09/17 20:27 Seanor 5-325 PO DAILY PRN Pain Apixaban 2.5 mg 12/09/17 21:00 12/10/17 07:03 Eliquis PO 2.5 mg BID BORA Administration Cholecalciferol 2,000 unit 12/10/17 09:00 12/10/17 08:42 Vitamin D3 PO 2,000 unit DAILY BORA Administration Sodium Chloride 1,000 mls @ 100 mls/hr 12/09/17 18:45 12/10/17 04:42 Saline 0.9% IV Not Given .Q10H BORA Meclizine HCl 25 mg 12/09/17 20:27 Antivert PO BID PRN Vertigo Metoprolol Tartrate 25 mg 12/09/17 21:00 12/10/17 08:42 Lopressor PO 25 mg BID BORA Administration Nitroglycerin 0.4 mg 12/09/17 18:33 Nitrostat SUBLINGUAL Q5M PRN Chest Pain Vitamin A 10,000 unit 12/10/17 09:00 Vitamin A PO DAILY BORA Intake and Output 12/09/17 12/10/17 12/10/17 22:59 06:59 14:59 Intake Total 800 Balance 800 Intake: IV 800 Sodium Chloride 0.9% 1, 800 000 ml @ 100 mls/hr IV . Q10H [facility] Rx#:[id number] Other: Voiding Method Toilet # Voids 1 3 Weight 78.2 kg 78.2 kg 12/09/17 16:01 12/09/17 16:01 EKG Interpretations (text) EKG on admission showed atrial fibrillation with a moderately rapid ventricular response, subsequent EKG shows sinus bradycardia Assessment and Plan Plan: Assessment and plan #1 symptoms of dizziness, could be secondary to orthostatic hypotension or bradycardia. #2 paroxysmal atrial fibrillation, on Eliquis for anticoagulation #3 known history of coronary artery disease with prior LAD and circumflex stenting and #4 hypertension #5 hyperlipidemia #6 renal insufficiency, could be secondary to mild dehydration Plan Echocardiogram with Doppler study performed in March 2016 revealed a normal left ventricular systolic function.We will repeat an echo on this admission. Continue to monitor orthostatics. Patient is on 25 mg of Lopressor by mouth twice a day at home, heart rate today is in the 50s. We'll continue to monitor for any significant bradycardia. Continue to hydrate the patient. Further recommendations to follow. DNP note has been reviewed, I agree with a documented findings and plan of care. Patient was seen and examined.
--- NOTE | 2017-12-10 11:08 | P.PN ---
Progress Note - Text this is an addendum to the dictated cardiology consultation. The patient has a known history of paroxysmal atrial fibrillation, coronary artery disease status post stenting of the LAD and the left circumflex history of hyperlipidemia who presented with symptoms of dizziness predominantly when he changes position. He has no palpitations, no syncope. He has diarrhea and according to him has been chronic. He denies any nausea or vomiting although he has lost some weight. He has no significant peripheral edema, no PND nor orthopnea. His physical examination shows no evidence of fluid overload and his lungs are clear. He is in sinus mechanism. His lab data revealed abnormal renal functions compared with the prior testing. I would recommend to hydrate the patient, follow his renal function, obtain an echocardiogram with Doppler and continue monitoring and depending on his progress further recommendations will be made. Thank you for this consult we will follow with you.
--- NOTE | 2017-12-10 11:51 | ECHOF ---
Referral Reason:dizziness MEASUREMENTS -------- HEIGHT: 157.5 cm WEIGHT: 78.0 kg BP: 135/64 RVIDd: 3.1 cm (< 3.3) IVSd: 1.3 cm (0.6 - 1.1) LVIDd: 3.8 cm (3.9 - 5.3) LVPWd: 1.2 cm (0.6 - 1.1) IVSs: 1.4 cm LVIDs: 3.3 cm LVPWs: 1.4 cm Ao Diam: 3.1 cm (2.0 - 3.7) AV Cusp: 2.0 cm (1.5 - 2.6) LA Diam: 2.8 cm (2.7 - 3.8) MV EXCURSION: 18.048 mm (> 18.000) MV EF SLOPE: 91 mm/s (70 - 150) EPSS: 1.7 cm MV E Alexey: 0.57 m/s MV DecT: 253 ms MV A Alexey: 0.54 m/s MV E/A Ratio: 1.07 RAP: 5.00 mmHg RVSP: 22.80 mmHg FINDINGS -------- Undetermined rhythm. This was a technically adequate study. The left ventricular size is normal. There is borderline concentric left ventricular hypertrophy. Overall left ventricular systolic function is low-normal with, an EF between 50 - 55 %. The right ventricle is mildly enlarged. The left atrial size is normal. The right atrial size is normal. There is mild aortic valve sclerosis. There is no evidence of aortic regurgitation. Mild mitral annular calcification present. Mild mitral regurgitation is present. Mild tricuspid regurgitation present. There is no evidence of pulmonary hypertension. The right v entricular systolic pressure, as measured by Doppler, is 22.80mmHg. Trace/mild (physiologic) pulmonic regurgitation. The aortic root size is normal. There is no pericardial effusion. CONCLUSIONS -------- 1. The left ventricular size is normal. 2. There is borderline concentric left ventricular hypertrophy. 3. Overall left ventricular systolic function is low-normal with, an EF between 50 - 55 %. 4. The right ventricle is mildly enlarged. 5. The left atrial size is normal. 6. The right atrial size is normal. 7. There is mild aortic valve sclerosis. 8. Mild mitral annular calcification present. 9. Mild mitral regurgitation is present. 10. Mild tricuspid regurgitation present. 11. There is no evidence of pulmonary hypertension. 12. The right ventricular systolic pressure, as measured by Doppler, is 22.80mmHg. 13. Trace/mild (physiologic) pulmonic regurgitation. 14. The aortic root size is normal. 15. There is no pericardial effusion. DEV TECHNICAL MGR: Mirta Mack RDCS
[2017-12-10] MEDS: ATORVASTATIN 40 MG TAB PO SCH (14:42)
[2017-12-10] MEDS: VITAMIN A 10,000 UNIT CAPSULE PO SCH (14:42)
[2017-12-10] MEDS ORDERED: NITROGLYCERIN SL TABS 0.4 MG TAB SUBLINGUAL PRN (14:57)
[2017-12-10] MEDS ORDERED: CODEINE PO PRN (14:57)
[2017-12-10] MEDS ORDERED: FIORINAL PO PRN (14:57)
[2017-12-10] MEDS ORDERED: ALPRAZolam 0.25 MG TAB PO PRN (15:01)
[2017-12-10] MEDS ORDERED: HYDROcodone/APAP 5-325MG 1 EACH TAB PO PRN (15:01)
[2017-12-10] MEDS: MECLIZINE 12.5 MG TAB PO SCH ×2 (15:22→20:55)
--- NOTE | 2017-12-10 15:25 | XR ---
EXAMINATION TYPE: XR chest 1V portable DATE OF EXAM: 12/10/2017 COMPARISON: NONE HISTORY: Shortness of breath, CHF TECHNIQUE: Single frontal view of the chest is obtained. FINDINGS: There is no focal air space opacity, pleural effusion, or pneumothorax seen. The cardiac silhouette size is within normal limits. The osseous structures are intact. Hypertrophic and degene rative change of the spine. Arthropathy of the shoulders. No overt failure. Coronary artery stenting suggested. IMPRESSION: No acute process.
[2017-12-10] MEDS: ACETAMINOPHEN TAB 500 MG TAB PO PRN (15:40)
[2017-12-10] MEDS ORDERED: BUTALB/APAP/CAFF 50-325-40MG TAB PO PRN (15:43)
--- NOTE | 2017-12-10 16:34 | CT ---
EXAMINATION TYPE: CT brain wo con DATE OF EXAM: 12/10/2017 COMPARISON: 12/13/2012. HISTORY: posterior head pain/stroke CT DLP: 1121 mGycm Automated exposure control for dose reduction was used. TECHNIQUE: CT scan of the head is performed without contrast. FINDINGS: There is no acute intracranial hemorrhage or midline shift identified. There is diffuse v entricular and sulcal prominence consistent with diffuse age-related cerebral atrophy. No suspicious extra-axial fluid collection. There is low-attenuation in the periventricular white matter consistent with chronic small vessel ischemic change. The globes are intact. Mild mucosal thickening is seen w ithin the right maxillary sinus. Remaining paranasal sinuses and mastoid air cells are well aerated. IMPRESSION: No acute intracranial hemorrhage or midline shift. There is diffuse age-related cerebra l atrophy and chronic small vessel ischemic change noted. Considering the clinical concern for strok e MRI could be performed for better evaluation.
--- NOTE | 2017-12-10 18:36 | HP ---
HISTORY AND PHYSICAL DATE OF SERVICE: 12/10/2017 CHIEF COMPLAINT: Dizziness and hypotension. HISTORY OF PRESENT ILLNESS: This 82-year-old gentleman with a past medical history of multiple medical problems including history of atrial fibrillation, CAD, GERD, hypertension, hyperlipidemia, history of DJD being followed by Dr. Toledo in the outpatient setting, was complaining of dizziness. The patient is apparently also had some bradycardia and the patient came to [facility]. The patient went to doctor's office yesterday and the patient has been tired, light-headed, weak and the patient was taken to [facility] and was admitted for further evaluation and treatment. The lactic acid elevated to 2.4. Creatinine is 1.5. Patient is started on IV fluids. Patient admitted to the hospital for further evaluation and treatment. Creatinine is 1.40. The baseline creatinine was normal. There is no history of fever, rigors or chills. No history of headache, loss of consciousness, seizures. PAST MEDICAL HISTORY: History of atrial fibrillation, history of GERD, hypertension, hyperlipidemia, skin cancer, CAD/stent. MEDICATIONS: Prior to admission home medications are: 1. Pravachol 10 mg q.h.s. 2. Antivert 25 mg b.i.d. 3. Vitamin D 10,000 daily. 4. Nitrostat 0.5 mg sublingual p.r.n. 5. Lopressor 25 mg p.o. b.i.d. 6. [place] 5 mg daily p.r.n. 7. Vitamin D3 2000 daily. 8. Fiorinal 1-2 capsules t.i.d. p.r.n. 9. Eliquis 2.5 mg b.i.d. ALLERGIES: CARDIZEM AND PENICILLIN. FAMILY HISTORY: History of colon cancer in the family. SOCIAL HISTORY: Previous history of smoking, no history of current smoking or alcohol intake. REVIEW OF SYSTEMS: ENT: Diminished hearing and diminished vision. CARDIOVASCULAR: As mentioned earlier. RESPIRATORY: As mentioned earlier. GI: No nausea or vomiting. : No dysuria or hematuria. NERVOUS SYSTEM: No numbness or weakness. ALLERGY/IMMUNOLOGY: No asthma or hayfever. MUSCULOSKELETAL: As mentioned earlier. HEMATOLOGY/ONCOLOGY: No history of anemia. ENDOCRINE: No history of diabetes or hypothyroidism. CONSTITUTIONAL: As mentioned earlier. DERMATOLOGY: Negative. RHEUMATOLOGY: Negative. PSYCHIATRY: As mentioned earlier. PHYSICAL EXAMINATION: Alert and oriented times three. Pulse 60, blood pressure 116/60, respirations 16, temp is normal. Pulse ox 97% on room air. HEENT: Conjunctivae normal. Oral mucosa moist. Neck is no jugular venous distention. No carotid bruit. No lymph node enlargement. Cardiovascular system S1, S2 irregular muffled. Respiratory: Breath sounds diminished in the bases. A few scattered rhonchi and crackles. ABDOMEN: Soft, nontender. No mass palpable. LEGS: No edema and no swelling. NERVOUS SYSTEM: Higher functions as mentioned earlier. Moves all four extremities. No focal motor or sensory deficits. LYMPHATICS: No lymph nodes palpable in the neck, axillae or groin. SKIN: No ulcers, rashes or bleeding. LAB STUDIES: At this time shows WBC 7.2, hemoglobin 13.2. Creatinine is 1.40. ASSESSMENT: 1. Dizziness and weakness possibly atrial fibrillation with fast ventricular rate. 2. Dehydration with acute renal failure possibly prerenal acute tubular necrosis. 3. Increased plasma lactic acid, possibly secondary to dehydration. 4. History of coronary artery disease. 5. History of gastroesophageal reflux disease. 6. Hypertension. 7. Hyperlipidemia. 8. History of dementia. 9. Psoriasis. 10.History of sinus problems. 11.History of coronary artery disease, stent. RECOMMENDATIONS AND DISCUSSION: In this 82-year-old gentleman who presented with multiple complex medical issues, we will monitor the patient closely, continue the current medications, management and symptomatic treatment. Otherwise, at this time, I recommend cautious IV fluids at baseline. Chest x-ray will be obtained. Cardiology consultation. 2D echo. Prognosis guarded. Continue the rest of the medications. The patient is started on Cardizem drip in the ER. The patient is already on Eliquis. Guarded prognosis because of multiple complex medical issues. Further recommendations to follow. I would also recommend PT/OT evaluation and evaluation for any rehabilitation also. I would also recommend some Antivert also symptomatically. Further recommendations to follow. MMODL / IJN: [id number] /
[2017-12-10] MEDS ORDERED: MELATONIN 3 MG TABLET PO SCH (21:00)
[2017-12-10] MEDS ORDERED: PRAVASTATIN SODIUM 20 MG TAB PO SCH (21:00)
[2017-12-11 06:08] LABS: Basophils % (A) 0 %; Eosinophils # (A) 0.4 k/uL (0-0.7); Eosinophils % (A) 5 %; HGB 11.3 gm/dL (13.0-17.5); Lymphocytes # (A) 1.8 k/uL (1.0-4.8); Lymphocytes % (A) 22 %; MCH 30.3 pg (25.0-35.0); MCHC 32.2 g/dL (31.0-37.0); MCV 94.4 fL (80.0-100.0); Mean Platelet Volume 6.9; Monocytes # (A) 0.6 k/uL (0-1.0); Monocytes % (A) 7 %; Neutrophils # (A) 5.1 k/uL (1.3-7.7); Neutrophils % (A) 64 %; Platelet Count 216 k/uL (150-450); RBC 3.71 m/uL (4.30-5.90); RDW 12.6 % (11.5-15.5)
[2017-12-11] MEDS: SODIUM CHLORIDE 0.9% 1,000 ML IV SCH ×2 (06:15→10:43)
[2017-12-11 06:34] LABS: Calcium 8.7 mg/dL (8.4-10.2); Potassium 4.4 mmol/L (3.5-5.1)
[2017-12-11] MEDS ORDERED: PANTOPRAZOLE 40 MG TABLET PO SCH (07:30)
[2017-12-11] MEDS: METOPROLOL TARTRATE 25 MG TAB PO SCH (08:44)
[2017-12-11] MEDS: CHOLECALCIFEROL 1,000 UNIT TAB PO SCH (08:44)
[2017-12-11] MEDS: APIXABAN 2.5 MG TABLET PO SCH (08:44)
[2017-12-11] MEDS: ATORVASTATIN 40 MG TAB PO SCH (08:44)
[2017-12-11] MEDS: MECLIZINE 12.5 MG TAB PO SCH (08:44)
[2017-12-11 09:11] VITALS: RESP 18
[2017-12-11] MEDS: VITAMIN A 10,000 UNIT CAPSULE PO SCH (10:22)
[2017-12-11] MEDS ORDERED: FOLIC ACID 1 MG TAB PO SCH (12:00)
[2017-12-11] MEDS ORDERED: MULTIVITAMINS, THERA 1 EACH TAB PO SCH (12:00)
[2017-12-11] MEDS ORDERED: THIAMINE 100 MG TAB PO SCH (12:00)
--- NOTE | 2017-12-11 12:10 | PN ---
PROGRESS NOTE Mr. Jarvis is an 82-year-old male who presented with symptoms of dizziness. He has paroxysmal fibrillation, coronary artery disease, status post stenting. He is feeling much better today. His breathing is better. He is denying any symptoms of chest pain. He has been ambulating without any difficulty. He has continued to be in sinus mechanism. He underwent an echocardiogram yesterday that revealed a preserved ventricular size and systolic function with mild mitral and tricuspid regurgitation. He continues to be at this time on Eliquis 2.5 mg twice a day, Lipitor 40 mg daily, metoprolol tartrate 25 mg twice a day, pravastatin 10 mg daily. PHYSICAL EXAMINATION: Blood pressure 135/60 with a heart in the 60s. LUNGS: Clear. HEART: Regular rate and rhythm. S1, S2. No S3. No rub with a systolic murmur. ABDOMEN: Soft, nontender. EXTREMITIES: No edema. LAB DATA: Revealed BUN and creatinine of 20 and 1.0, which has improved compared to the admission. IMPRESSION: 1. Symptoms of dizziness, probably dehydration. 2. History of coronary artery disease, status post percutaneous revascularization, stable. 3. Paroxysmal atrial fibrillation, remains in sinus mechanism. 4. Hyperlipidemia. 5. History of hypertension. RECOMMENDATION: From the cardiac standpoint, he is stable. He should be able to be discharged home today on the present therapy. MMODL / IJN: [id number] /
[2017-12-11 13:36] VITALS: BP 128/58; PULSE 62; TEMP 97.1
[2017-12-11] MEDS: ACETAMINOPHEN TAB 500 MG TAB PO PRN (14:10)
--- NOTE | 2017-12-11 14:22 | DS ---
DISCHARGE SUMMARY DATE OF SERVICE: 12/11/2017. FINAL DIAGNOSES: 1. Dizziness, weakness with possible atrial fibrillation with fast ventricular rate present on admission. 2. Dehydration with acute renal failure, possibly prerenal acute tubular necrosis. 3. Increased plasma lactic acid, possibly secondary to dehydration. 4. History of coronary artery disease. 5. Gastroesophageal reflux disease. 6. Hypertension. 7. Hyperlipidemia. 8. History of dementia. 9. Psoriasis. 10.History of sinus problems. 11.History of coronary artery disease, stent. DISCHARGE DISPOSITION: Patient will be discharged in stable condition with guarded prognosis. HISTORY OF PRESENT ILLNESS: This is an 82-year-old with a past medical history of multiple medical problems, was admitted with dizziness and hypotension. Patient was given a dose of Cardizem but otherwise patient had some bradycardia, also. Patient improved significantly. Cardiology saw the patient and was given IV fluids. On exam, vitals are stable. CARDIOVASCULAR: S1, S2, muffled. ABDOMEN: Soft. NERVOUS SYSTEM: No focal deficits. DISCHARGE DIET: Cardiac. Activity limited until followup. Follow up with Dr. Toledo in 2-3 days. Follow up with Cardiology as recommended.. MEDICATIONS ARE FOLLOWS:: Recommended home medications are: 1. Eliquis 2.5 mg p.o. b.i.d. 2. Butalbital 1 t.i.d. p.r.n. 3. Vitamin D3 two thousand daily. 4. [place] 5 mg daily. 5. Antivert 25 mg b.i.d. p.r.n. 6. Nitrostat 0.4 mg p.r.n. 7. Pravachol 10 mg q.h.s. 8. Vitamin A 10,000 daily. 9. Folic acid 1 mg p.o. daily. 10.Antivert 12.5 mg t.i.d. 11.Lopressor 25 mg p.o. b.i.d. 12.Multivitamins 1 p.o. daily. 13.Thiamine 100 mg p.o. daily. Once again, the patient will be discharged in stable condition with a guarded prognosis. MMODL / IJN: [id number] /
== END 2017-12-11 15:18 | disposition home health service (06) | DRG 308 ==
LOC: EC 15:33 → 3OBS 18:33 → 6SEL 18:52 → OBSVTOIN 12-10 15:53
PROVIDERS: ADMIT Hospitalist; ATTEND Hospitalist
DX: I48.0 Paroxysmal atrial fibrillation (principal); N17.0 Acute kidney failure with tubular necrosis; I25.10 Atherosclerotic heart disease of native coronary artery without angina pectoris; K21.9 Gastro-esophageal reflux disease without esophagitis; I10 Essential (primary) hypertension; E78.5 Hyperlipidemia, unspecified; F03.90 Unspecified dementia, unspecified severity, without behavioral disturbance, psychotic disturbance, mood disturbance, and anxiety; E86.0 Dehydration; L40.9 Psoriasis, unspecified; Z96.649 Presence of unspecified artificial hip joint; Z96.651 Presence of right artificial knee joint; Z95.5 Presence of coronary angioplasty implant and graft; I25.2 Old myocardial infarction; Z79.01 Long term (current) use of anticoagulants; Z79.899 Other long term (current) drug therapy; Z98.42 Cataract extraction status, left eye; Z95.1 Presence of aortocoronary bypass graft; Z80.0 Family history of malignant neoplasm of digestive organs; Z80.1 Family history of malignant neoplasm of trachea, bronchus and lung; Z85.828 Personal history of other malignant neoplasm of skin; Z87.891 Personal history of nicotine dependence; Z88.0 Allergy status to penicillin; Z88.8 Allergy status to other drugs, medicaments and biological substances
CPT/HCPCS: 36415; 70450; 71045; 80048; 80053; 80061; 81001; 82550; 82553; 83605; 83735; 84100; 84443; 84484; 85025; 85610; 85730; 87040; 87086; 93005; 93306; 96360; 96361; 99285

== ENCOUNTER 2018-06-01 13:33 | Emergency (ER) | payer MEDICARE, BC ==
[2018-06-01] MEDS ORDERED: SODIUM CHLORIDE 0.9% 1,000 ML IV STA ×2 (14:44)
[2018-06-01 15:04] LABS: Basophils % (A) 1 %; Eosinophils # (A) 0.2 k/uL (0-0.7); Eosinophils % (A) 2 %; HCT 37.9 % (39.0-53.0); HGB 12.4 gm/dL (13.0-17.5); Lymphocytes # (A) 1.4 k/uL (1.0-4.8); Lymphocytes % (A) 19 %; MCH 31.2 pg (25.0-35.0); MCHC 32.7 g/dL (31.0-37.0); MCV 95.2 fL (80.0-100.0); Mean Platelet Volume 6.5; Monocytes # (A) 0.6 k/uL (0-1.0); Monocytes % (A) 8 %; Neutrophils # (A) 5.2 k/uL (1.3-7.7); Neutrophils % (A) 69 %; Platelet Count 234 k/uL (150-450); RBC 3.98 m/uL (4.30-5.90); RDW 13.2 % (11.5-15.5); WBC 7.6 k/uL (3.8-10.6)
--- NOTE | 2018-06-01 15:13 | ED ---
Nausea/Vomiting/Diarrhea HPI - General Chief complaint: Nausea/Vomiting/Diarrhea Stated complaint: diarrhea Time Seen by Provider: 06/01/18 14:18 Source: patient, RN notes reviewed, old records reviewed Mode of arrival: wheelchair Limitations: physical limitation - History of Present Illness Initial comments: Patient is an 82-year-old male presents for his Remicade today with 3 days of watery diarrhea. He said a history of diverticulitis in the past. He is very cautious on his diet. Patient states that he's had no fevers or chills. He does report that each time he is eating or drinking anything he would have purulent watery diarrhea. Patient has had no nausea or vomiting episodes. Patient has had a colonoscopy approximately 2 years ago which was normal size and diverticulosis. - Related Data Home Medications Medication Instructions Recorded Confirmed Apixaban [Eliquis] 2.5 mg PO BID 01/17/16 06/01/18 Cholecalciferol [Vitamin D3] 2,000 unit PO DAILY 01/17/16 06/01/18 Meclizine [Antivert] 25 mg PO TID PRN 01/17/16 06/01/18 Vitamin A 10,000 unit PO DAILY 03/18/16 06/01/18 Nitroglycerin Sl Tabs [Nitrostat] 0.4 mg SUBLINGUAL Q5M PRN 04/22/16 06/01/18 Vxwuconzkr-OON-[place]va-Codeine 1 - 2 cap PO TID PRN 12/03/16 06/01/18 [Fiorinal w/Cod 11-901-17-30MG] HYDROcodone/APAP 5-325MG [[place] 1 tab PO DAILY PRN 09/16/17 06/01/18 5-325] Carboxymethylcellulose Sodium 1 drop BOTH EYES Q4H 06/01/18 06/01/18 [Refresh Tears] guaiFENesin [Mucinex] 600 mg PO Q12H PRN 06/01/18 06/01/18 Previous Rx's Medication Instructions Recorded Metoprolol Tartrate [Lopressor] 25 mg PO BID #20 tablet 09/16/17 Ciprofloxacin HCl [Cipro] 500 mg PO Q12H 3 Days #6 tab 06/01/18 metroNIDAZOLE [Flagyl] 500 mg PO TID #9 tab 06/01/18 Allergies Allergy/AdvReac Type Severity Reaction Status Date / Time diltiazem HCl [From Cardizem] Allergy Rash/Hives Verified 06/01/18 14:29 Penicillins Allergy Swelling Verified 06/01/18 14:29 Review of Systems ROS Statement: Those systems with pertinent positive or pertinent negative responses have been documented in the HPI. ROS Other: All systems not noted in ROS Statement are negative. Past Medical History Past Medical History: Atrial Fibrillation, Coronary Artery Disease (CAD), Cancer , GERD/Reflux, Hyperlipidemia, Hypertension, Memory Impairment, Osteoarthritis ( OA), Skin Disorder Additional Past Medical History / Comment(s): skin cancer, psoriasis, sinus problems,diverticulitis, bulging discs-back pain. Last Myocardial Infarction Date:: 01/27/15 History of Any Multi-Drug Resistant Organisms: None Reported Past Surgical History: Heart Catheterization With Stent, Joint Replacement Additional Past Surgical History / Comment(s): cardiac stents x2, right knee replacement, Revision total R knee, right quadricep tendon rupture with repair , hemorroidectomy, colonoscopy/egd, lt inguinal hernia, hip replacement, left eye cataract removed Past Anesthesia/Blood Transfusion Reactions: Previous Problems w/ Anesthesia Additional Past Anesthesia/Blood Transfusion Reaction / Comment(s): "DISORIENTATION AFTER RECEIVING ANESTHESIA FOR A COUPLE OF DAYS" Date of Last Stent Placement:: 2015 Past Psychological History: No Psychological Hx Reported Smoking Status: Former smoker Past Alcohol Use History: None Reported Past Drug Use History: None Reported - Past Family History Sister(s) Family Medical History: Cancer Brother(s) Family Medical History: Cancer Additional Family Medical History / Comment(s): of lung cancer Father Family Medical History: No Reported History Additional Family Medical History / Comment(s): was smoker, from pneumonia at age 82 yrs. Mother Family Medical History: Cancer Additional Family Medical History / Comment(s): colon cancer General Exam - General Exam Comments Initial Comments: A 2-year-old male. Patient appears moderately dehydrated. Limitations: physical limitation General appearance: alert, in no apparent distress Head exam: Present: atraumatic, normocephalic, normal inspection Eye exam: Present: normal appearance, PERRL, EOMI. Absent: scleral icterus, conjunctival injection, periorbital swelling ENT exam: Present: normal exam, mucous membranes moist Neck exam: Present: normal inspection. Absent: tenderness, meningismus, lymphadenopathy Respiratory exam: Present: normal lung sounds bilaterally. Absent: respiratory distress, wheezes, rales, rhonchi, stridor Cardiovascular Exam: Present: regular rate, normal rhythm, normal heart sounds. Absent: systolic murmur, diastolic murmur, rubs, gallop, clicks GI/Abdominal exam: Present: soft, normal bowel sounds. Absent: distended, tenderness, guarding, rebound, rigid Extremities exam: Present: normal inspection, full ROM, normal capillary refill. Absent: tenderness, pedal edema, joint swelling, calf tenderness Back exam: Present: normal inspection Neurological exam: Present: alert, oriented X3, CN II-XII intact Psychiatric exam: Present: normal affect, normal mood Course Vital Signs 06/01/18 06/01/18 06/01/18 13:41 15:01 17:27 Temperature 98.6 F Pulse Rate 63 58 L 60 Respiratory 19 20 18 Rate Blood Pressure 136/71 123/62 134/74 O2 Sat by Pulse 98 98 99 Oximetry - Reevaluation(s) Reevaluation #1: 06/01/18 17:23 reevaluated and patient continues to have no tenderness. Patient had small amount of watery diarrhea in brief. Medical Decision Making - Medical Decision Making 82-year-old male presents emergency room to 3 days of diarrhea. Patient was given 2 L bolus. Vital signs are stable. He has no abdominal tenderness on exam. He was able to urinate. And he did have a small amount of clear watery stool within his brief. He has no significant abdominal pain or rectal pain. Patient's concerned his diverticulitis may flared up. He has no fever at this time. White blood cell count is within normal limits. Hemoglobin is been stable at 12. Patient was given prescription for outpatient labs of stool sample to be obtained. I did discuss case with Dr. Champagne. We will discharge the Patient with a prescription and have outpatient stool studies completed. Encourage hydration. Discussed that I do want him to use Imodium or any other antidiarrheal medicine as this may cause severe constipation make things worse. Patient agrees to treatment plan will comply. - Lab Data Result diagrams: 06/01/18 14:50 06/01/18 14:50 Lab Results 06/01/18 06/01/18 Range/Units 14:50 14:50 WBC 7.6 (3.8-10.6) k/uL RBC 3.98 L (4.30-5.90) m/uL Hgb 12.4 L (13.0-17.5) gm/dL Hct 37.9 L (39.0-53.0) % MCV 95.2 (80.0-100.0) fL MCH 31.2 (25.0-35.0) pg MCHC 32.7 (31.0-37.0) g/dL RDW 13.2 (11.5-15.5) % Plt Count 234 (150-450) k/uL Neutrophils % 69 % Lymphocytes % 19 % Monocytes % 8 % Eosinophils % 2 % Basophils % 1 % Neutrophils # 5.2 (1.3-7.7) k/uL Lymphocytes # 1.4 (1.0-4.8) k/uL Monocytes # 0.6 (0-1.0) k/uL Eosinophils # 0.2 (0-0.7) k/uL Basophils # 0.0 (0-0.2) k/uL Sodium 139 (137-145) mmol/L Potassium 4.3 (3.5-5.1) mmol/L Chloride 107 (98-107) mmol/L Carbon Dioxide 28 (22-30) mmol/L Anion Gap 4 mmol/L BUN 29 H (9-20) mg/dL Creatinine 1.16 (0.66-1.25) mg/dL Est GFR (CKD-EPI)AfAm 67 (>60 ml/min/1.73 sqM) Est GFR (CKD-EPI)NonAf 58 (>60 ml/min/1.73 sqM) Glucose 101 H (74-99) mg/dL Calcium 8.8 (8.4-10.2) mg/dL Total Bilirubin 0.5 (0.2-1.3) mg/dL AST 61 H (17-59) U/L ALT 26 (21-72) U/L Alkaline Phosphatase 45 (38-126) U/L Total Protein 6.5 (6.3-8.2) g/dL Albumin 3.5 (3.5-5.0) g/dL Amylase 55 (30-110) U/L Lipase 55 (23-300) U/L Disposition Clinical Impression: Diarrhea Disposition: HOME SELF-CARE Condition: Good Instructions: Acute Diarrhea (ED) Additional Instructions: Patient advised to follow-up in regards to the stool sample return if her studies. Follow-up with your primary care doctor in the next 1-2 days. Return to emergency department if any alarming signs or symptoms occur. Prescriptions: Ciprofloxacin HCl [Cipro] 500 mg PO Q12H 3 Days #6 tab metroNIDAZOLE [Flagyl] 500 mg PO TID #9 tab Is patient prescribed a controlled substance at d/c from ED?: No Referrals: Neelima Toledo MD [Primary Care Provider] - 1-2 days Time of Disposition: 17:33
[2018-06-01 15:19] LABS: Albumin 3.5 g/dL (3.5-5.0); Calcium 8.8 mg/dL (8.4-10.2); Potassium 4.3 mmol/L (3.5-5.1); Total Bilirubin 0.5 mg/dL (0.2-1.3); Total Protein 6.5 g/dL (6.3-8.2)
[2018-06-01 17:28] VITALS: RESP 18
[2018-06-01 17:46] LABS: Appearance,Urine Clear (Clear); Bilirubin,Urine Negative (Negative); Blood,Urine Negative (Negative); Color,Urine Yellow; Glucose,Urine (UA) Negative (Negative); Ketones,Urine Negative (Negative); Leukocyte Esterase,Urine Negative (Negative); Nitrite,Urine Negative (Negative); Protein,Urine Trace (Negative); Urobilinogen,Urine <2.0 mg/dL (<2.0)
[2018-06-01 19:31] VITALS: BP 142/61; PULSE 63; TEMP 98.1
== END 2018-06-01 19:10 | disposition home or self-care (01) ==
LOC: EC 13:33
DX: R19.7 Diarrhea, unspecified (principal); E86.0 Dehydration; I48.91 Unspecified atrial fibrillation; I25.10 Atherosclerotic heart disease of native coronary artery without angina pectoris; M19.90 Unspecified osteoarthritis, unspecified site; Z87.891 Personal history of nicotine dependence; Z88.0 Allergy status to penicillin; Z88.8 Allergy status to other drugs, medicaments and biological substances; Z79.01 Long term (current) use of anticoagulants; Z79.899 Other long term (current) drug therapy; Z85.828 Personal history of other malignant neoplasm of skin; Z95.5 Presence of coronary angioplasty implant and graft; Z96.649 Presence of unspecified artificial hip joint; Z96.651 Presence of right artificial knee joint; Z87.19 Personal history of other diseases of the digestive system; Z80.0 Family history of malignant neoplasm of digestive organs
CPT/HCPCS: 36415; 80053; 81003; 82150; 83690; 85025; 96360; 96361; 99284

== ENCOUNTER → 2018-10-14 | Outpatient (CLI) | payer MEDICARE, BC | END | disposition home or self-care (01) | LOC: LABWHC1 12:41 | PROVIDERS: ATTEND Physician Assistant Medical | DX: M25.561 Pain in right knee (principal) | CPT/HCPCS: 36415; 85652; 86140 ==

== ENCOUNTER 2019-06-30 11:05 | Inpatient (IN) | payer MEDICARE, BC ==
[2019-06-30] MEDS ORDERED: ACETAMINOPHEN TAB 500 MG TAB PO STA (11:10)
[2019-06-30] MEDS ORDERED: IBUPROFEN 600 MG TAB PO STA (11:10)
--- NOTE | 2019-06-30 11:17 | ED ---
General Adult HPI - General Stated complaint: Weakness Time Seen by Provider: 06/30/19 11:05 Source: patient, EMS, RN notes reviewed, old records reviewed - History of Present Illness Initial comments: This is an 83-year-old male who comes to the emergency room via EMS. Per EMS the call was for weakness. According to the the patient was weak yesterday and wasn't getting out of bed and landing crooked in bed for the whole 24 hours and at that point time he was unable to get out of bed this morning so she decided to call EMS. Patient states he just feels completely weak. He denies any specific area of pain other than his chronic back pain and has chronic right knee pain. Patient denies any chest pain difficulty breathing shortest breath. His any fever chills or cough. Patient denies any headache patient denies numbness or focal weakness. Patient denies any abdominal pain patient denies nausea vomiting diarrhea. - Related Data Home Medications Medication Instructions Recorded Confirmed Apixaban [Eliquis] 2.5 mg PO BID 01/17/16 06/30/19 Cholecalciferol [Vitamin D3 (25 2,000 unit PO DAILY 01/17/16 06/30/19 Mcg = 1000 Iu)] Vitamin A 10,000 unit PO DAILY 03/18/16 06/30/19 Rhfwrokecs-GZT-Qnzjzms-Codeine 1 - 2 cap PO TID PRN 12/03/16 06/30/19 [Fiorinal w/Cod 53-554-77-30MG] HYDROcodone/APAP 7.5-325MG [[place] 1 tab PO BID 06/30/19 06/30/19 7.5-325] Metoprolol Tartrate [Lopressor] 12.5 mg PO BID 06/30/19 06/30/19 Allergies Allergy/AdvReac Type Severity Reaction Status Date / Time diltiazem HCl [From Cardizem] Allergy Rash/Hives Verified 06/30/19 11:58 Penicillins Allergy Swelling Verified 06/30/19 11:58 Review of Systems ROS Statement: Those systems with pertinent positive or pertinent negative responses have been documented in the HPI. ROS Other: All systems not noted in ROS Statement are negative. Past Medical History Past Medical History: Atrial Fibrillation, Coronary Artery Disease (CAD), Cancer, GERD/Reflux, Hyperlipidemia, Hypertension, Memory Impairment, Osteoarthritis (OA), Skin Disorder Additional Past Medical History / Comment(s): skin cancer, psoriasis, sinus problems,diverticulitis, bulging discs-back pain. Last Myocardial Infarction Date:: 01/27/15 History of Any Multi-Drug Resistant Organisms: None Reported Past Surgical History: Heart Catheterization With Stent, Joint Replacement Additional Past Surgical History / Comment(s): cardiac stents x2, right knee replacement, Revision total R knee, right quadricep tendon rupture with repair, hemorroidectomy, colonoscopy/egd, lt inguinal hernia, hip replacement, left eye cataract removed Past Anesthesia/Blood Transfusion Reactions: Previous Problems w/ Anesthesia Additional Past Anesthesia/Blood Transfusion Reaction / Comment(s): "DISORIENTAT ION AFTER RECEIVING ANESTHESIA FOR A COUPLE OF DAYS" Date of Last Stent Placement:: 2015 Past Psychological History: No Psychological Hx Reported Smoking Status: Former smoker Past Alcohol Use History: None Reported Past Drug Use History: None Reported - Past Family History Sister(s) Family Medical History: Cancer Brother(s) Family Medical History: Cancer Additional Family Medical History / Comment(s): of lung cancer Father Family Medical History: No Reported History Additional Family Medical History / Comment(s): was smoker, from pneumonia at age 82 yrs. Mother Family Medical History: Cancer Additional Family Medical History / Comment(s): colon cancer General Exam - General Exam Comments Initial Comments: GENERAL: Patient is well-developed and well-nourished. Patient is nontoxic and well- hydrated and is in mild distress. Patient smells of urine and is very tired when responding to all questions but is able to answer all questions accurately ENT: Neck is soft and supple. No significant lymphadenopathy is noted. Oropharynx is clear. Moist mucous membranes. Neck has full range of motion without eliciting any pain. EYES: The sclera were anicteric and conjunctiva were pink and moist. Extraocular movements were intact and pupils were equal round and reactive to light. Eyelids were unremarkable. PULMONARY: Unlabored respirations. Good breath sounds bilaterally. No audible rales rhonchi or wheezing was noted. CARDIOVASCULAR: Patient has an irregular heartbeat and at a rate of about 150 beats a minute ABDOMEN: Soft and nontender with normal bowel sounds. SKIN: Skin is clear with no lesions or rashes and otherwise unremarkable. NEUROLOGIC: Patient is alert and oriented x3. Cranial nerves II through XII are grossly intact. Motor and sensory are also intact. Normal speech, volume and content. Symmetrical smile. MUSCULOSKELETAL: Normal extremities with adequate strength and full range of motion. LYMPHATICS: No significant lymphadenopathy is noted PSYCHIATRIC: Normal psychiatric evaluation. Course Vital Signs 06/30/19 06/30/19 06/30/19 11:11 11:43 12:00 Temperature 100.1 F H Pulse Rate 148 H 150 H Pulse Rate [ 150 H [employer] ] Respiratory 20 18 Rate Blood Pressure 111/62 131/96 100/84 O2 Sat by Pulse 95 95 95 Oximetry 06/30/19 06/30/19 13:00 13:39 Temperature 97.6 F Pulse Rate 112 H Pulse Rate [ [employer] ] Respiratory 27 H Rate Blood Pressure 101/85 O2 Sat by Pulse 95 Oximetry Medical Decision Making - Medical Decision Making EKG shows A. fib with rapid ventricular response at 154 bpm QRS is 84 QT interval 300 QTC is 480. Patient's EKG shows no ST segment elevation. Chest x-ray shows no acute abnormality. Patient has influenza B-positive. Patient got Tamiflu the emergency department. Patient was feeling better with fluid and antipyretics. I spoke with Dr. Rodriguez he agreed to admit the patient I admitted the patient and continue Tamiflu. - Lab Data Result diagrams: 06/30/19 12:00 06/30/19 12:00 Lab Results 06/30/19 06/30/19 06/30/19 Range/Units 12:00 12:00 12:00 WBC 5.4 (3.8-10.6) k/uL RBC 4.54 (4.30-5.90) m/uL Hgb 14.6 (13.0-17.5) gm/dL Hct 43.2 (39.0-53.0) % MCV 95.0 (80.0-100.0) fL MCH 32.1 (25.0-35.0) pg MCHC 33.8 (31.0-37.0) g/dL RDW 13.9 (11.5-15.5) % Plt Count 194 (150-450) k/uL Neutrophils % 76 % Lymphocytes % 10 % Monocytes % 10 % Eosinophils % 0 % Basophils % 1 % Neutrophils # 4.1 (1.3-7.7) k/uL Lymphocytes # 0.5 L (1.0-4.8) k/uL Monocytes # 0.5 (0-1.0) k/uL Eosinophils # 0.0 (0-0.7) k/uL Basophils # 0.0 (0-0.2) k/uL PT (9.0-12.0) sec INR (<1.2) APTT (22.0-30.0) sec Sodium 141 (137-145) mmol/L Potassium 4.4 (3.5-5.1) mmol/L Chloride 106 (98-107) mmol/L Carbon Dioxide 21 L (22-30) mmol/L Anion Gap 14 mmol/L BUN 39 H (9-20) mg/dL Creatinine 1.19 (0.66-1.25) mg/dL Est GFR (CKD-EPI)AfAm 64 (>60 ml/min/1.73 sqM) Est GFR (CKD-EPI)NonAf 55 (>60 ml/min/1.73 sqM) Glucose 139 H (74-99) mg/dL Plasma Lactic Acid Joe 2.4 H* (0.7-2.0) mmol/L Calcium 8.7 (8.4-10.2) mg/dL Total Bilirubin 0.6 (0.2-1.3) mg/dL AST 56 (17-59) U/L ALT 20 (4-49) U/L Alkaline Phosphatase 55 (38-126) U/L Troponin I (0.000-0.034) ng/mL Total Protein 7.2 (6.3-8.2) g/dL Albumin 3.9 (3.5-5.0) g/dL Urine Color Urine Appearance (Clear) Urine pH (5.0-8.0) Ur Specific [place] (1.001-1.035) Urine Protein (Negative) Urine Glucose (UA) (Negative) Urine Ketones (Negative) Urine Blood (Negative) Urine Nitrite (Negative) Urine Bilirubin (Negative) Urine Urobilinogen (<2.0) mg/dL Ur Leukocyte Esterase (Negative) Urine RBC (0-5) /hpf Influenza Type A RNA (Not Detectd) Influenza Type B (PCR) (Not Detectd) 06/30/19 06/30/19 06/30/19 Range/Units 12:00 12:00 12:00 WBC (3.8-10.6) k/uL RBC (4.30-5.90) m/uL Hgb (13.0-17.5) gm/dL Hct (39.0-53.0) % MCV (80.0-100.0) fL MCH (25.0-35.0) pg MCHC (31.0-37.0) g/dL RDW (11.5-15.5) % Plt Count (150-450) k/uL Neutrophils % % Lymphocytes % % Monocytes % % Eosinophils % % Basophils % % Neutrophils # (1.3-7.7) k/uL Lymphocytes # (1.0-4.8) k/uL Monocytes # (0-1.0) k/uL Eosinophils # (0-0.7) k/uL Basophils # (0-0.2) k/uL PT 10.6 (9.0-12.0) sec INR 1.0 (<1.2) APTT 26.4 (22.0-30.0) sec Sodium (137-145) mmol/L Potassium (3.5-5.1) mmol/L Chloride (98-107) mmol/L Carbon Dioxide (22-30) mmol/L Anion Gap mmol/L BUN (9-20) mg/dL Creatinine (0.66-1.25) mg/dL Est GFR (CKD-EPI)AfAm (>60 ml/min/1.73 sqM) Est GFR (CKD-EPI)NonAf (>60 ml/min/1.73 sqM) Glucose (74-99) mg/dL Plasma Lactic Acid Joe (0.7-2.0) mmol/L Calcium (8.4-10.2) mg/dL Total Bilirubin (0.2-1.3) mg/dL AST (17-59) U/L ALT (4-49) U/L Alkaline Phosphatase (38-126) U/L Troponin I 0.069 H* (0.000-0.034) ng/mL Total Protein (6.3-8.2) g/dL Albumin (3.5-5.0) g/dL Urine Color Urine Appearance (Clear) Urine pH (5.0-8.0) Ur Specific [place] (1.001-1.035) Urine Protein (Negative) Urine Glucose (UA) (Negative) Urine Ketones (Negative) Urine Blood (Negative) Urine Nitrite (Negative) Urine Bilirubin (Negative) Urine Urobilinogen (<2.0) mg/dL Ur Leukocyte Esterase (Negative) Urine RBC (0-5) /hpf Influenza Type A RNA Not Detected (Not Detectd) Influenza Type B (PCR) Detected H (Not Detectd) 06/30/19 Range/Units 12:00 WBC (3.8-10.6) k/uL RBC (4.30-5.90) m/uL Hgb (13.0-17.5) gm/dL Hct (39.0-53.0) % MCV (80.0-100.0) fL MCH (25.0-35.0) pg MCHC (31.0-37.0) g/dL RDW (11.5-15.5) % Plt Count (150-450) k/uL Neutrophils % % Lymphocytes % % Monocytes % % Eosinophils % % Basophils % % Neutrophils # (1.3-7.7) k/uL Lymphocytes # (1.0-4.8) k/uL Monocytes # (0-1.0) k/uL Eosinophils # (0-0.7) k/uL Basophils # (0-0.2) k/uL PT (9.0-12.0) sec INR (<1.2) APTT (22.0-30.0) sec Sodium (137-145) mmol/L Potassium (3.5-5.1) mmol/L Chloride (98-107) mmol/L Carbon Dioxide (22-30) mmol/L Anion Gap mmol/L BUN (9-20) mg/dL Creatinine (0.66-1.25) mg/dL Est GFR (CKD-EPI)AfAm (>60 ml/min/1.73 sqM) Est GFR (CKD-EPI)NonAf (>60 ml/min/1.73 sqM) Glucose (74-99) mg/dL Plasma Lactic Acid Joe (0.7-2.0) mmol/L Calcium (8.4-10.2) mg/dL Total Bilirubin (0.2-1.3) mg/dL AST (17-59) U/L ALT (4-49) U/L Alkaline Phosphatase (38-126) U/L Troponin I (0.000-0.034) ng/mL Total Protein (6.3-8.2) g/dL Albumin (3.5-5.0) g/dL Urine Color Yellow Urine Appearance Turbid (Clear) Urine pH 5.5 (5.0-8.0) Ur Specific [place] 1.029 (1.001-1.035) Urine Protein 1+ H (Negative) Urine Glucose (UA) Negative (Negative) Urine Ketones 1+ H (Negative) Urine Blood Trace H (Negative) Urine Nitrite Negative (Negative) Urine Bilirubin Negative (Negative) Urine Urobilinogen <2.0 (<2.0) mg/dL Ur Leukocyte Esterase Negative (Negative) Urine RBC 1 (0-5) /hpf Influenza Type A RNA (Not Detectd) Influenza Type B (PCR) (Not Detectd) Disposition Clinical Impression: Influenza, Generalized weakness, Elevated troponin Disposition: ADMITTED IP TO THIS HOSP Referrals: Neelima Toledo MD [Primary Care Provider] - 1-2 days Time of Disposition: 14:08
[2019-06-30] MEDS: SODIUM CHLORIDE 0.9% 500 ML 500 ML IV SCH (12:28)
[2019-06-30 12:50] LABS: Basophils % (A) 1 %; Eosinophils % (A) 0 %; HCT 43.2 % (39.0-53.0); HGB 14.6 gm/dL (13.0-17.5); Lymphocytes # (A) 0.5 k/uL (1.0-4.8); Lymphocytes % (A) 10 %; MCH 32.1 pg (25.0-35.0); MCHC 33.8 g/dL (31.0-37.0); Mean Platelet Volume 7.6; Monocytes # (A) 0.5 k/uL (0-1.0); Monocytes % (A) 10 %; Neutrophils # (A) 4.1 k/uL (1.3-7.7); Neutrophils % (A) 76 %; Platelet Count 194 k/uL (150-450); RBC 4.54 m/uL (4.30-5.90); RDW 13.9 % (11.5-15.5); WBC 5.4 k/uL (3.8-10.6)
[2019-06-30 13:00] LABS: Partial Thromboplastin Time 26.4 sec (22.0-30.0); Prothrombin Time 10.6 sec (9.0-12.0)
[2019-06-30 13:04] LABS: Albumin 3.9 g/dL (3.5-5.0); Calcium 8.7 mg/dL (8.4-10.2); Potassium 4.4 mmol/L (3.5-5.1); Total Bilirubin 0.6 mg/dL (0.2-1.3); Total Protein 7.2 g/dL (6.3-8.2)
--- NOTE | 2019-06-30 13:20 | XR ---
EXAMINATION TYPE: XR chest 2V DATE OF EXAM: 06/30/2019 COMPARISON: 12/10/2017 HISTORY: Shortness of breath TECHNIQUE: Frontal and lateral views of the chest are obtained. FINDINGS: Scattered senescent parenchymal changes noted. Hyperinflation compatible with COPD. No evidence for infiltrate. No evidence for atelectasis. Heart size is stable. Mediastinal structures are stable and grossly unremarkable. No evidence for hilar prominence. Degenerative changes dorsal spine. IMPRESSION: 1. No evidence for acute pulmonary disease.
[2019-06-30] MEDS ORDERED: OSELTAMIVIR 75 MG CAP PO STA (13:28)
[2019-06-30 13:51] LABS: Appearance,Urine Turbid (Clear); Bilirubin,Urine Negative (Negative); Blood,Urine Trace (Negative); Color,Urine Yellow; Glucose,Urine (UA) Negative (Negative); Ketones,Urine 1+ (Negative); Leukocyte Esterase,Urine Negative (Negative); Nitrite,Urine Negative (Negative); PH, Urine 5.5 (5.0-8.0); Protein,Urine 1+ (Negative); RBC,Urine 1 /hpf (0-5); Specific Gravity,Urine 1.029 (1.001-1.035); Urobilinogen,Urine <2.0 mg/dL (<2.0)
[2019-06-30] MEDS ORDERED: SODIUM CHLORIDE 0.9% 1,000 ML IV ONE ×2 (13:58→14:09)
[2019-06-30] MEDS: OSELTAMIVIR 75 MG CAP PO SCH (19:35)
[2019-06-30] MEDS: METOPROLOL TARTRATE 25 MG TAB PO SCH (21:13)
[2019-06-30] MEDS: APIXABAN 2.5 MG TABLET PO SCH (21:15)
[2019-07-01] MEDS: METOPROLOL TARTRATE 25 MG TAB PO SCH ×2 (09:55→20:28)
[2019-07-01] MEDS: APIXABAN 2.5 MG TABLET PO SCH ×2 (09:55→20:29)
[2019-07-01] MEDS: OSELTAMIVIR 75 MG CAP PO SCH (09:55)
--- NOTE | 2019-07-02 00:22 | P.HPIM ---
History of Present Illness H&P Date: 07/01/19 Chief Complaint: Weakness and lethargic Patient is a 83-year-old male with a known history of atrial fibrillation on anticoagulation with Eliquis, coronary artery disease with history of stent placement 2, osteoarthritis, hypertension, hyperlipidemia, memory impairment and osteoarthritis was brought to the hospital by EMS due to generalized weakness and lethargic. According to his patient was very weak and was not able to get out of bed for the past 24 hours prior to admission and unable to get out of his bed in the morning. Patient's decided to call EMS. Otherwise patient denied any complaints of chest pain. Patient does have some cough, mainly dry cough and shortness of breath. Patient does have chronic back pain and takes [place] 7.5 twice daily. Denied any complaints of chest pain. No fever no chills. No headache or dizziness or lightheadedness. No nausea vomiting abdominal pain or diarrhea. No dysuria or hematuria. Chest x-ray showed no acute cardio pulmonary process. EKG showed A. fib with RVR. Troponin 0.069, 0.081 and 0.082 Lactic acid 2.4 BUN 39 on admission Influenza B positive PCR. T-max 100.1 on admission Review of Systems Constitutional: Patient denies any fever or chills . Generalized weakness and lethargic. Abdomen: Patient denied nausea vomiting and diarrhea and abdominal pain. Cardiovascular: Patient denies any chest pain or short of breath no palpitations. Respiratory: patient denied any cough is from production. No shortness of breath Neurologic: Patient denied any numbness or tingling headache. Musculoskeletal: Patient denies any complaints of joint swelling or deformity. Skin: Negative Psychiatric: Negative Endocrine: No heat or cold intolerance. No recent weight gain. Genitourinary: No dysuria or hematuria. All other 14 point ROS negative except the above Past Medical History Past Medical History: Atrial Fibrillation, Coronary Artery Disease (CAD), Cancer, GERD/Reflux, Hyperlipidemia, Hypertension, Memory Impairment, Osteoarthritis (OA), Skin Disorder Additional Past Medical History / Comment(s): skin cancer, psoriasis, sinus problems,diverticulitis, bulging discs-back pain. Last Myocardial Infarction Date:: 01/27/15 History of Any Multi-Drug Resistant Organisms: None Reported Past Surgical History: Heart Catheterization With Stent, Joint Replacement Additional Past Surgical History / Comment(s): cardiac stents x2, right knee replacement, Revision total R knee, right quadricep tendon rupture with repair, hemorroidectomy, colonoscopy/egd, lt inguinal hernia, hip replacement, left eye cataract removed Past Anesthesia/Blood Transfusion Reactions: Previous Problems w/ Anesthesia Additional Past Anesthesia/Blood Transfusion Reaction / Comment(s): "DISORIENTATION AFTER RECEIVING ANESTHESIA FOR A COUPLE OF DAYS" Date of Last Stent Placement:: 2015 Smoking Status: Former smoker - Past Family History Sister(s) Family Medical History: Cancer Brother(s) Family Medical History: Cancer Additional Family Medical History / Comment(s): of lung cancer Father Family Medical History: No Reported History Additional Family Medical History / Comment(s): was smoker, from pneumonia at age 82 yrs. Mother Family Medical History: Cancer Additional Family Medical History / Comment(s): colon cancer Medications and Allergies Home Medications Medication Instructions Recorded Confirmed Type Apixaban [Eliquis] 2.5 mg PO BID 01/17/16 06/30/19 History Cholecalciferol [Vitamin D3 (25 2,000 unit PO DAILY 01/17/16 06/30/19 History Mcg = 1000 Iu)] Vitamin A 10,000 unit PO DAILY 03/18/16 06/30/19 History Tonzkcxhel-VID-Cleyqrd-Codeine 1 - 2 cap PO TID PRN 12/03/16 06/30/19 History [Fiorinal w/Cod 53-096-13-30MG] HYDROcodone/APAP 7.5-325MG [[place] 1 tab PO BID 06/30/19 06/30/19 History 7.5-325] Metoprolol Tartrate [Lopressor] 12.5 mg PO BID 06/30/19 06/30/19 History Allergies Allergy/AdvReac Type Severity Reaction Status Date / Time diltiazem HCl [From Cardizem] Allergy Rash/Hives Verified 06/30/19 11:58 Penicillins Allergy Swelling Verified 06/30/19 11:58 Physical Exam Vitals: Vital Signs Temp Pulse Pulse Pulse Resp BP BP 07/01/19 08:00 99.4 F 65 20 120/60 07/01/19 04:00 98.9 F 58 L 18 154/72 06/30/19 23:17 67 18 06/30/19 23:15 99.9 F H 67 18 140/64 06/30/19 19:45 97.7 F 58 L 16 134/63 06/30/19 19:40 58 L 18 06/30/19 19:35 97.7 F 58 L 18 134/63 06/30/19 18:45 52 L 06/30/19 18:35 97.9 F 52 L 113/59 06/30/19 17:30 49 L 22 104/57 06/30/19 17:00 52 L 21 96/56 06/30/19 16:00 52 L 21 94/62 06/30/19 15:30 51 L 19 90/55 06/30/19 14:30 61 21 90/51 06/30/19 13:39 97.6 F 06/30/19 13:30 96/77 06/30/19 13:00 112 H 27 H 101/85 Pulse Ox 07/01/19 08:00 98 07/01/19 04:00 100 06/30/19 23:17 06/30/19 23:15 100 06/30/19 19:45 99 06/30/19 19:40 06/30/19 19:35 99 06/30/19 18:45 06/30/19 18:35 94 L 06/30/19 17:30 96 06/30/19 17:00 96 06/30/19 16:00 96 06/30/19 15:30 97 06/30/19 14:30 95 06/30/19 13:39 06/30/19 13:30 06/30/19 13:00 95 Intake and Output 06/30/19 07/01/19 07/01/19 22:59 06:59 14:59 Intake Total 100 Balance 100 Intake: Oral 100 Other: # Voids 1 1 # Bowel Movements 1 1 Weight 97.522 kg 75.1 kg PHYSICAL EXAMINATION: Patient is lying in the bed comfortably, no acute distress, awake alert and oriented.. HEENT: Normocephalic. Neck is supple. Pupils reactive. Nostrils clear. Oral cavity is moist. Ears reveal no drainage. Neck reveals no JVD, carotid bruits, or thyromegaly. CHEST EXAMINATION: Trachea is central. Symmetrical expansion. Bibasilar diminished air entry. Lung singh clear to auscultation and percussion. CARDIAC: Normal S1, S2 with no gallops. No murmurs . Irregularly irregular rhythm. ABDOMEN: Soft. Bowel sounds normal. No organomegaly. No abdominal bruits. Extremities: reveal no edema. No clubbing or cyanosis Neurologically awake, alert, oriented x3 with well-coordinated movements. No focal deficits noted Skin: No rash or skin lesions. Psychiatric: Coperative. Nonsuicidal Musculoskeletal: No joint swelling or deformity. Normal range of motion. Results CBC & Chem 7: 06/30/19 12:00 06/30/19 12:00 Labs: Abnormal Lab Results - Last 24 Hours (Table) 06/30/19 06/30/19 06/30/19 Range/Units 12:00 12:00 12:00 Lymphocytes # 0.5 L (1.0-4.8) k/uL Carbon Dioxide 21 L (22-30) mmol/L BUN 39 H (9-20) mg/dL Glucose 139 H (74-99) mg/dL Plasma Lactic Acid Joe 2.4 H* (0.7-2.0) mmol/L Troponin I (0.000-0.034) ng/mL Urine Protein (Negative) Urine Ketones (Negative) Urine Blood (Negative) Influenza Type B (PCR) (Not Detectd) 06/30/19 06/30/19 06/30/19 Range/Units 12:00 12:00 12:00 Lymphocytes # (1.0-4.8) k/uL Carbon Dioxide (22-30) mmol/L BUN (9-20) mg/dL Glucose (74-99) mg/dL Plasma Lactic Acid Joe (0.7-2.0) mmol/L Troponin I 0.069 H* (0.000-0.034) ng/mL Urine Protein 1+ H (Negative) Urine Ketones 1+ H (Negative) Urine Blood Trace H (Negative) Influenza Type B (PCR) Detected H (Not Detectd) 06/30/19 07/01/19 Range/Units 20:37 00:47 Lymphocytes # (1.0-4.8) k/uL Carbon Dioxide (22-30) mmol/L BUN (9-20) mg/dL Glucose (74-99) mg/dL Plasma Lactic Acid Joe (0.7-2.0) mmol/L Troponin I 0.081 H* 0.082 H* (0.000-0.034) ng/mL Urine Protein (Negative) Urine Ketones (Negative) Urine Blood (Negative) Influenza Type B (PCR) (Not Detectd) Thrombosis Risk Factor Assmnt - DVT/VTE Prophylaxis DVT/VTE Prophylaxis: Pharmacologic Prophylaxis ordered - Choose All That Apply Any of the Below Risk Factors Present?: Yes Other Risk Factors: Yes Each Risk Factor Represents 3 Points: Age 75 years or older Other congenital or acquired thrombophilia - If yes, enter type in comment: No Thrombosis Risk Factor Assessment Total Risk Factor Score: 3 Thrombosis Risk Factor Assessment Level: Moderate Risk Assessment and Plan Assessment: Acute influenza B infection Atrial fibrillation with rapid regular rate on admission. Elevated troponin level likely due to demand mismatch. Type II [place] Lactic acidosis 2.4 improved with hydration Dehydration and volume depletion Chronic atrial fibrillation on anticoagulation with Eliquis Coronary artery disease with history of stent placement GERD Hypertension and hyperlipidemia Memory impairment Osteoarthritis Psoriasis History of diverticulitis Osteoarthritis Previous history of smoking Plan: Patient will be continued on gentle hydration. Continue with Tamiflu and Eliquis for anticoagulation. Continue with metoprolol. Follow up closely and further recommendations based on the clinical course. Encourage oral intake and ambulation. Time with Patient: Greater than 30
[2019-07-02] MEDS: OSELTAMIVIR 60 MG/10 ML ORAL SYRINGE PO SCH ×3 (02:26→22:21)
[2019-07-02 06:51] LABS: Basophils # (A) 0.1 k/uL (0-0.2); Basophils % (A) 2 %; Eosinophils % (A) 1 %; HCT 35.1 % (39.0-53.0); HGB 12.3 gm/dL (13.0-17.5); Lymphocytes # (A) 0.8 k/uL (1.0-4.8); Lymphocytes % (A) 19 %; MCHC 34.9 g/dL (31.0-37.0); MCV 91.7 fL (80.0-100.0); Mean Platelet Volume 9.1; Monocytes # (A) 0.3 k/uL (0-1.0); Monocytes % (A) 6 %; Neutrophils # (A) 3.2 k/uL (1.3-7.7); Neutrophils % (A) 71 %; Platelet Count 112 k/uL (150-450); RBC 3.83 m/uL (4.30-5.90); RDW 14.1 % (11.5-15.5); WBC 4.5 k/uL (3.8-10.6)
[2019-07-02 07:37] LABS: Calcium 8.2 mg/dL (8.4-10.2)
[2019-07-02 07:43] LABS: Potassium 4.6 mmol/L (3.5-5.1)
[2019-07-02] MEDS: APIXABAN 2.5 MG TABLET PO SCH ×2 (07:56→22:00)
[2019-07-02] MEDS: METOPROLOL TARTRATE 25 MG TAB PO SCH ×2 (07:56→22:01)
[2019-07-02] MEDS: HYDROcodone/APAP 7.5-325MG 1 EACH TAB PO SCH ×2 (07:56→22:00)
[2019-07-02] MEDS: ACETAMINOPHEN TAB 325 MG TAB PO PRN (15:06)
--- NOTE | 2019-07-02 23:01 | P.PN ---
Subjective Progress Note Date: 07/02/19 Principal diagnosis: Acute and influenza B infection Elevated troponin level Patient is a 83-year-old male with a known history of atrial fibrillation on anticoagulation with Eliquis, coronary artery disease with history of stent placement 2, osteoarthritis, hypertension, hyperlipidemia, memory impairment and osteoarthritis was brought to the hospital by EMS due to generalized weakness and lethargic. According to his patient was very weak and was not able to get out of bed for the past 24 hours prior to admission and unable to get out of his bed in the morning. Patient's decided to call EMS. Otherwise patient denied any complaints of chest pain. Patient does have some cough, mainly dry cough and shortness of breath. Patient does have chronic back pain and takes [place] 7.5 twice daily. Denied any complaints of chest pain. No fever no chills. No headache or dizziness or lightheadedness. No nausea vomiting abdominal pain or diarrhea. No dysuria or hematuria. Chest x-ray showed no acute cardio pulmonary process. EKG showed A. fib with RVR. Troponin 0.069, 0.081 and 0.082 Lactic acid 2.4 BUN 39 on admission Influenza B positive PCR. T-max 100.1 on admission 07/02/2019 Patient is currently lying in the bed comfortably. Generalized weakness is much improved. Patient is able to tolerate oral diet. No complaints of chest pain or shortness of breath. Otherwise patient is still weak and requiring support for ambulation. Troponin level went up to 0.5. Patient is asymptomatic otherwise. Currently on anticoagulation with Eliquis for atrial fibrillation 2-D cardiogram was ordered. Continue to monitor closely and PT OT will be consulted. Possible transfer to rehab Current medications reviewed. Objective - Vital Signs Vital signs: Vital Signs Temp 98.3 F 07/02/19 15:00 Pulse 110 H 07/02/19 15:00 Resp 20 07/02/19 15:00 BP 114/73 07/02/19 15:00 Pulse Ox 98 07/02/19 15:00 Intake & Output 07/02/19 07/02/19 07/03/19 06:59 18:59 06:59 Intake Total 120 Output Total 200 Balance -200 120 Weight 73.5 kg Intake: Oral 120 Output: Urine 200 Other: Voiding Method Incontinent # Voids 5 0 # Bowel Movements 3 1 - Exam PHYSICAL EXAMINATION: Patient is lying in the bed comfortably, no acute distress, awake alert and oriented. Hard of hearing. HEENT: Normocephalic. Neck is supple. Pupils reactive. Nostrils clear. Oral cavity is moist. Ears reveal no drainage. Neck reveals no JVD, carotid bruits, or thyromegaly. CHEST EXAMINATION: Trachea is central. Symmetrical expansion. Bibasilar diminished air entry. Lung singh clear to auscultation and percussion. CARDIAC: Normal S1, S2 with no gallops. No murmurs ABDOMEN: Soft. Bowel sounds normal. No organomegaly. No abdominal bruits. Extremities: reveal no edema. No clubbing or cyanosis Neurologically awake, alert, oriented x3 with well-coordinated movements. No focal deficits noted Skin: No rash or skin lesions. Psychiatric: Coperative. Nonsuicidal Musculoskeletal: No joint swelling or deformity. Normal range of motion. - Labs CBC & Chem 7: 07/02/19 06:30 07/02/19 06:30 Labs: Abnormal Lab Results - Last 24 Hours (Table) 07/02/19 07/02/19 07/02/19 Range/Units 06:30 06:30 06:30 RBC 3.83 L (4.30-5.90) m/uL Hgb 12.3 L (13.0-17.5) gm/dL Hct 35.1 L (39.0-53.0) % Plt Count 112 L (150-450) k/uL Lymphocytes # 0.8 L (1.0-4.8) k/uL Chloride 113 H (98-107) mmol/L Carbon Dioxide 20 L (22-30) mmol/L BUN 30 H (9-20) mg/dL Calcium 8.2 L (8.4-10.2) mg/dL Troponin I 0.512 H* (0.000-0.034) ng/mL Microbiology - Last 24 Hours (Table) 06/30/19 12:00 Blood Culture - Preliminary Blood No Growth after 48 hours Assessment and Plan Assessment: Acute influenza B infection Chronic Atrial fibrillation with rapid regular rate on admission. Rate is controlled. Elevated troponin level likely due to demand mismatch. Type II [place] Lactic acidosis 2.4 improved with hydration Dehydration and volume depletion Chronic atrial fibrillation on anticoagulation with Eliquis Coronary artery disease with history of stent placement GERD Hypertension and hyperlipidemia Memory impairment Osteoarthritis Psoriasis History of diverticulitis Osteoarthritis Previous history of smoking Plan: Patient will be continued on gentle hydration. Continue with Tamiflu and Eliquis for anticoagulation. Continue with metoprolol. Follow up closely and further recommendations based on the clinical course. Encourage oral intake and ambulation. Time with Patient: Greater than 30
[2019-07-03 07:03] LABS: Basophils # (A) 0.1 k/uL (0-0.2); Basophils % (A) 3 %; Eosinophils % (A) 1 %; HCT 37.8 % (39.0-53.0); Lymphocytes # (A) 0.6 k/uL (1.0-4.8); Lymphocytes % (A) 14 %; MCH 31.6 pg (25.0-35.0); MCHC 34.3 g/dL (31.0-37.0); MCV 92.2 fL (80.0-100.0); Mean Platelet Volume 8.2; Monocytes # (A) 0.4 k/uL (0-1.0); Monocytes % (A) 9 %; Neutrophils # (A) 3.3 k/uL (1.3-7.7); Neutrophils % (A) 72 %; Platelet Count 132 k/uL (150-450); RDW 13.8 % (11.5-15.5); WBC 4.6 k/uL (3.8-10.6)
[2019-07-03 07:39] LABS: African American GFR (CKD) >90 (>60 ml/min/1.73 sqM); Anion Gap 8 mmol/L; Blood Urea Nitrogen 32 mg/dL (9-20); Calcium 8.4 mg/dL (8.4-10.2); Carbon Dioxide 23 mmol/L (22-30); Chloride 107 mmol/L (98-107); Glucose 102 mg/dL (74-99); Non-African American GFR(CKD) 85 (>60 ml/min/1.73 sqM); Potassium 3.9 mmol/L (3.5-5.1); Sodium 138 mmol/L (137-145)
[2019-07-03] MEDS: METOPROLOL TARTRATE 25 MG TAB PO SCH ×2 (08:44→23:11)
[2019-07-03] MEDS: HYDROcodone/APAP 7.5-325MG 1 EACH TAB PO SCH (08:44)
[2019-07-03] MEDS: OSELTAMIVIR 60 MG/10 ML ORAL SYRINGE PO SCH ×2 (08:45→23:12)
[2019-07-03] MEDS: APIXABAN 2.5 MG TABLET PO SCH ×2 (08:45→23:11)
[2019-07-03] MEDS: ACETAMINOPHEN TAB 325 MG TAB PO PRN (23:12)
--- NOTE | 2019-07-04 01:13 | P.PN ---
Subjective Progress Note Date: 07/03/19 Principal diagnosis: Acute and influenza B infection Elevated troponin level Patient is a 83-year-old male with a known history of atrial fibrillation on anticoagulation with Eliquis, coronary artery disease with history of stent placement 2, osteoarthritis, hypertension, hyperlipidemia, memory impairment and osteoarthritis was brought to the hospital by EMS due to generalized weakness and lethargic. According to his patient was very weak and was not able to get out of bed for the past 24 hours prior to admission and unable to get out of his bed in the morning. Patient's decided to call EMS. Otherwise patient denied any complaints of chest pain. Patient does have some cough, mainly dry cough and shortness of breath. Patient does have chronic back pain and takes [place] 7.5 twice daily. Denied any complaints of chest pain. No fever no chills. No headache or dizziness or lightheadedness. No nausea vomiting abdominal pain or diarrhea. No dysuria or hematuria. Chest x-ray showed no acute cardio pulmonary process. EKG showed A. fib with RVR. Troponin 0.069, 0.081 and 0.082 Lactic acid 2.4 BUN 39 on admission Influenza B positive PCR. T-max 100.1 on admission 07/02/2019 Patient is currently lying in the bed comfortably. Generalized weakness is much improved. Patient is able to tolerate oral diet. No complaints of chest pain or shortness of breath. Otherwise patient is still weak and requiring support for ambulation. Troponin level went up to 0.5. Patient is asymptomatic otherwise. Currently on anticoagulation with Eliquis for atrial fibrillation 2-D cardiogram was ordered. Continue to monitor closely and PT OT will be consulted. Possible transfer to rehab 07/03/2019 Patient is currently lying in the bed comfortably. Denied any complaints of chest pain or worsening shortness of breath. Still feels weak and requires support for ambulation. 2-2D echocardiogram was ordered, report is pending at this time. will consult cardiology due to elevated troponin level. Increase metoprolol dose to 25 mg twice a day due to tachycardia. PTOT and patient may need rehab transfer. Patient does not want to go to rehab. We will discuss the family tomorrow. Current medications reviewed. Objective - Vital Signs Vital signs: Vital Signs Temp 97.0 F L 07/03/19 12:00 Pulse 113 H 07/03/19 12:00 Resp 18 07/03/19 12:00 BP 131/84 07/03/19 12:00 Pulse Ox 97 07/03/19 12:00 Intake & Output 07/02/19 07/03/19 07/03/19 18:59 06:59 18:59 Intake Total 120 0 Output Total 0 Balance 120 0 0 Weight 73.5 kg 73.5 kg Intake: Oral 120 0 Output: Urine 0 Other: Voiding Method Incontinent Incontinent Incontinent # Voids 0 0 # Bowel Movements 1 - Exam PHYSICAL EXAMINATION: Patient is lying in the bed comfortably, no acute distress, awake alert and oriented. Hard of hearing. HEENT: Normocephalic. Neck is supple. Pupils reactive. Nostrils clear. Oral cavity is moist. Ears reveal no drainage. Neck reveals no JVD, carotid bruits, or thyromegaly. CHEST EXAMINATION: Trachea is central. Symmetrical expansion. Bibasilar diminished air entry. Lung singh clear to auscultation and percussion. CARDIAC: Normal S1, S2 with no gallops. No murmurs ABDOMEN: Soft. Bowel sounds normal. No organomegaly. No abdominal bruits. Extremities: reveal no edema. No clubbing or cyanosis Neurologically awake, alert, oriented x3 with well-coordinated movements. No focal deficits noted Skin: No rash or skin lesions. Psychiatric: Coperative. Nonsuicidal Musculoskeletal: No joint swelling or deformity. Normal range of motion. - Labs CBC & Chem 7: 07/03/19 06:11 07/03/19 06:11 Labs: Abnormal Lab Results - Last 24 Hours (Table) 07/03/19 07/03/19 Range/Units 06:11 06:11 RBC 4.10 L (4.30-5.90) m/uL Hct 37.8 L (39.0-53.0) % Plt Count 132 L (150-450) k/uL Lymphocytes # 0.6 L (1.0-4.8) k/uL BUN 32 H (9-20) mg/dL Glucose 102 H (74-99) mg/dL Microbiology - Last 24 Hours (Table) 06/30/19 12:00 Blood Culture - Preliminary Blood No Growth after 72 hours Assessment and Plan Assessment: Acute influenza B infection Chronic Atrial fibrillation with rapid regular rate on admission. Rate is controlled. Elevated troponin level likely due to demand mismatch. Type II [place] Lactic acidosis 2.4 improved with hydration Dehydration and volume depletion Chronic atrial fibrillation on anticoagulation with Eliquis Coronary artery disease with history of stent placement GERD Hypertension and hyperlipidemia Memory impairment Osteoarthritis Psoriasis History of diverticulitis Osteoarthritis Previous history of smoking Plan: Patient was continued on gentle hydration. Currently tolerating oral diet. Continue with Tamiflu and Eliquis for anticoagulation. Continue with metopro lol. Follow up closely and further recommendations based on the clinical course. Encourage oral intake and ambulation. Time with Patient: Greater than 30
[2019-07-04] MEDS: HYDROcodone/APAP 7.5-325MG 1 EACH TAB PO SCH ×3 (06:18→21:17)
[2019-07-04 07:08] LABS: Basophils % (A) 0 %; Eosinophils % (A) 1 %; HGB 12.1 gm/dL (13.0-17.5); Lymphocytes % (A) 23 %; MCH 31.9 pg (25.0-35.0); MCHC 34.5 g/dL (31.0-37.0); MCV 92.3 fL (80.0-100.0); Mean Platelet Volume 8.6; Monocytes # (A) 0.4 k/uL (0-1.0); Monocytes % (A) 10 %; Neutrophils # (A) 2.6 k/uL (1.3-7.7); Neutrophils % (A) 62 %; Platelet Count 152 k/uL (150-450); RBC 3.79 m/uL (4.30-5.90); RDW 13.8 % (11.5-15.5); WBC 4.2 k/uL (3.8-10.6)
[2019-07-04 07:26] LABS: African American GFR (CKD) >90 (>60 ml/min/1.73 sqM); Anion Gap 8 mmol/L; Blood Urea Nitrogen 30 mg/dL (9-20); Calcium 8.4 mg/dL (8.4-10.2); Carbon Dioxide 26 mmol/L (22-30); Chloride 105 mmol/L (98-107); Glucose 104 mg/dL (74-99); Non-African American GFR(CKD) 86 (>60 ml/min/1.73 sqM); Potassium 3.7 mmol/L (3.5-5.1); Sodium 139 mmol/L (137-145)
--- NOTE | 2019-07-04 07:40 | XR ---
EXAMINATION TYPE: XR chest 1V DATE OF EXAM: 07/04/2019 COMPARISON: 06/30/2019 HISTORY: Femur TECHNIQUE: Single frontal view of the chest is obtained. FINDINGS: There is no focal air space opacity, pleural effusion, or pneumothorax seen. The cardiac silhouette size is within normal limits. The osseous structures are intact. Arthropathy shoulders. No overt failure. Limited inspiration. Atherosclerotic change aorta. Correlate for underlying COPD. T iny area of sclerosis involving the proximal right humerus could related to previous bone infarct. IMPRESSION: No acute process.
--- NOTE | 2019-07-04 08:54 | P.PN ---
Subjective Patient is a 83-year-old male with a known history of atrial fibrillation on anticoagulation with Eliquis, coronary artery disease with history of stent placement 2, osteoarthritis, hypertension, hyperlipidemia, memory impairment and osteoarthritis was brought to the hospital by EMS due to generalized weakness and lethargic. According to his patient was very weak and was not able to get out of bed for the past 24 hours prior to admission and unable to get out of his bed in the morning. Patient's decided to call EMS. Otherwise patient denied any complaints of chest pain. Patient does have some cough, mainly dry cough and shortness of breath. Patient does have chronic back pain and takes [place] 7.5 twice daily. Denied any complaints of chest pain. No fever no chills. No headache or dizziness or lightheadedness. No nausea vomiting abdominal pain or diarrhea. No dysuria or hematuria. Chest x-ray showed no acute cardio pulmonary process. EKG showed A. fib with RVR. Troponin 0.069, 0.081 and 0.082 Lactic acid 2.4 BUN 39 on admission Influenza B positive PCR. T-max 100.1 on admission 07/02/2019 Patient is currently lying in the bed comfortably. Generalized weakness is much improved. Patient is able to tolerate oral diet. No complaints of chest pain or shortness of breath. Otherwise patient is still weak and requiring support for ambulation. Troponin level went up to 0.5. Patient is asymptomatic otherwise. Currently on anticoagulation with Eliquis for atrial fibrillation 2-D cardiogram was ordered. Continue to monitor closely and PT OT will be consulted. Possible transfer to rehab 07/03/2019 Patient is currently lying in the bed comfortably. Denied any complaints of chest pain or worsening shortness of breath. Still feels weak and requires support for ambulation. 2-2D echocardiogram was ordered, report is pending at this time. will consult cardiology due to elevated troponin level. Increase metoprolol dose to 25 mg twice a day due to tachycardia. PTOT and patient may need rehab transfer. Patient does not want to go to rehab. We will discuss the family tomorrow. 07/04/2019 Patient is lying in bed, not in significant respiratory distress however these coughing and he has some respiratory congestion. Patient is poor historian. He could not provide information this morning. He has a fever of 100.5. She is normal at 4.2K, BMP is unremarkable. Troponin was elevated on several occasions at 0.082 and 0.5. Cardiology team already been consulted and echocardiogram is pending. We'll order also chest x-ray. Currently patient is on Eliquis 2.5 mg and Tamiflu, also he is on [place] 7.5 mg. we will start also gentle hydration. Review of system: N/a Active Medications Generic Name Dose Route Start Last Admin Trade Name Freq PRN Reason Stop Dose Admin Acetaminophen 650 mg 07/01/19 21:41 07/03/19 23:12 Tylenol Tab PO 650 mg Q6HR PRN Administration Fever and/ or Pain Hydrocodone Bitart/Acetaminophen 1 each 07/02/19 09:00 07/04/19 06:18 [place] 7.5-325 PO Not Given BID BORA Apixaban 2.5 mg 06/30/19 21:15 07/03/19 23:11 Eliquis PO 2.5 mg BID BORA Administration Metoprolol Tartrate 25 mg 07/03/19 21:00 07/03/19 23:11 Lopressor PO 25 mg BID BORA Administration Oseltamivir Phosphate 30 mg 07/01/19 21:00 07/03/19 23:12 Tamiflu PO 07/04/19 21:01 30 mg Q12HR BORA Administration Objective - Vital Signs Vital signs: Vital Signs Temp 98.9 F 07/04/19 04:00 Pulse 89 07/04/19 04:00 Resp 20 07/04/19 04:00 BP 161/67 07/04/19 04:00 Pulse Ox 96 07/04/19 04:00 Intake & Output 07/03/19 07/04/19 07/04/19 18:59 06:59 18:59 Intake Total 0 Output Total 0 Balance 0 Weight 73.5 kg 69.7 kg Intake: Oral 0 Output: Urine 0 Other: Voiding Method Incontinent Incontinent # Voids 1 1 - Exam -Patient is lying in the bed comfortably, he is awake but poor historian HEENT: Normocephalic. Neck is supple. Pupils reactive. Nostrils clear. Oral cavity is moist. Ears reveal no drainage. Neck reveals no JVD, carotid bruits, or thyromegaly. -CHEST EXAMINATION: Trachea is central. Symmetrical expansion. Bibasilar diminished air entry. Lung singh clear to auscultation and percussion. With a scattered Coarse crepitation CARDIAC: Normal S1, S2 with no gallops. No murmurs ABDOMEN: Soft. Bowel sounds normal. No organomegaly. No abdominal bruits. Extremities: reveal no edema. No clubbing or cyanosis Neurologically awake, alert, oriented x3 with well-coordinated movements. No focal deficits noted Skin: No rash or skin lesions. Psychiatric: Coperative. Nonsuicidal Musculoskeletal: No joint swelling or deformity. Normal range of motion. - Labs CBC & Chem 7: 07/04/19 05:47 07/04/19 05:47 Labs: Abnormal Lab Results - Last 24 Hours (Table) 07/04/19 07/04/19 Range/Units 05:47 05:47 RBC 3.79 L (4.30-5.90) m/uL Hgb 12.1 L (13.0-17.5) gm/dL Hct 35.0 L (39.0-53.0) % BUN 30 H (9-20) mg/dL Glucose 104 H (74-99) mg/dL Microbiology - Last 24 Hours (Table) 06/30/19 12:00 Blood Culture - Preliminary Blood No Growth after 72 hours Assessment and Plan Assessment: Acute influenza B infection Elevated troponin, rule out acute coronary syndrome Chronic Atrial fibrillation with rapid regular rate on admission. Rate is controlled. Lactic acidosis 2.4 improved with hydration Dehydration and volume depletion Chronic atrial fibrillation on anticoagulation with Eliquis Coronary artery disease with history of stent placement GERD Hypertension and hyperlipidemia Memory impairment Osteoarthritis Psoriasis History of diverticulitis Osteoarthritis Previous history of smoking Plan: This is a pleasant 83 years old male who presents with abdominal ones and elevated troponin. Continue with Tamiflu, check chest x-ray and if negative will resume gentle hydration. Cardiology ordered is been consulted and follow- up recommendation and echocardiogram. Labs and medication were reviewed.. Continue same treatment. Continue with symptomatic treatment. Resume home medication. Monitor lytes and vitals. DVT and GI prophylaxis. Further recommendations of the clinical course of the patient DVT prophylaxis: Eliquis GI Prophylaxis: Pepcid PT/OT: Patient will benefit from subacute rehab Prognosis is guarded
[2019-07-04] MEDS ORDERED: FAMOTIDINE 20 MG/2 ML VIAL IV SCH (09:00)
[2019-07-04] MEDS ORDERED: DEXTROSE 5%-0.9% NACL 1,000 ML IV SCH (09:00)
--- NOTE | 2019-07-04 09:45 | P.CRDCN ---
History of Present Illness Consult date: 07/04/19 Chief complaint: Weakness History of present illness: This is an 83-year-old gentleman who is in poor physical and mental shape with a past medical history significant for long-standing persistent atrial fibrillation on oral anticoagulation with Eliquis as well as history of coronary artery disease and prior revascularization in term of stenting, as well as hypertension, dyslipidemia, and advanced dementia, was brought to the emergency room for increased weakness as well as lethargy. Overall the patient is a poor historian. According to the chart as well as the nurse taking care of the patient, the patient has been very weak lately. No specific symptoms of chest pain or chest discomfort, shortness of breath, dizziness, heart racing, or syncope. The patient's called the EMS where the patient was brought to the emergency room. When he was admitted to the hospital initially he was tachycardic with underlying atrial fibrillation. The blood pressure has been stable throughout the hospital stay. The EKG did not show any significant ST or T-wave abnormalities beside diffuse nonspecific changes. Earlier today the patient was having some temperature and he is in process of being started on antibiotic. No symptoms of nausea or vomiting, sweating, abdominal pain or abdominal discomfort. His physical examination overall was unremarkable and he was euvolemic when he was seen later on today. The troponin was slightly el evated but the patient was tachycardic when he presented to the emergency room. Giving his overall age as well as the physical and mental shape, I would advise a conservative medical approach. He is on metoprolol which we'll continue. Continue the oral anticoagulation and consider stopping it if he is high risk of falling and the bleeding. Also on echocardiogram was ordered which we will follow-up with. Past Medical History Past Medical History: Atrial Fibrillation, Coronary Artery Disease (CAD), Cancer, GERD/Reflux, Hyperlipidemia, Hypertension, Memory Impairment, Osteoarthritis (OA), Skin Disorder Additional Past Medical History / Comment(s): skin cancer, psoriasis, sinus problems,diverticulitis, bulging discs-back pain. Last Myocardial Infarction Date:: 01/27/15 History of Any Multi-Drug Resistant Organisms: None Reported Past Surgical History: Heart Catheterization With Stent, Joint Replacement Additional Past Surgical History / Comment(s): cardiac stents x2, right knee replacement, Revision total R knee, right quadricep tendon rupture with repair, hemorroidectomy, colonoscopy/egd, lt inguinal hernia, hip replacement, left eye cataract removed Past Anesthesia/Blood Transfusion Reactions: Previous Problems w/ Anesthesia Additional Past Anesthesia/Blood Transfusion Reaction / Comment(s): "DISORIENTATION AFTER RECEIVING ANESTHESIA FOR A COUPLE OF DAYS" Date of Last Stent Placement:: 2015 Smoking Status: Former smoker - Past Family History Sister(s) Family Medical History: Cancer Brother(s) Family Medical History: Cancer Additional Family Medical History / Comment(s): of lung cancer Father Family Medical History: No Reported History Additional Family Medical History / Comment(s): was smoker, from pneumonia at age 82 yrs. Mother Family Medical History: Cancer Additional Family Medical History / Comment(s): colon cancer Medications and Allergies Home Medications Medication Instructions Recorded Confirmed Type Apixaban [Eliquis] 2.5 mg PO BID 01/17/16 06/30/19 History Cholecalciferol [Vitamin D3 (25 2,000 unit PO DAILY 01/17/16 06/30/19 History Mcg = 1000 Iu)] Vitamin A 10,000 unit PO DAILY 03/18/16 06/30/19 History Pakhpsetst-PIC-Tdxoaqp-Codeine 1 - 2 cap PO TID PRN 12/03/16 06/30/19 History [Fiorinal w/Cod 35-663-11-30MG] HYDROcodone/APAP 7.5-325MG [[place] 1 tab PO BID 06/30/19 06/30/19 History 7.5-325] Metoprolol Tartrate [Lopressor] 12.5 mg PO BID 06/30/19 06/30/19 History Allergies Allergy/AdvReac Type Severity Reaction Status Date / Time diltiazem HCl [From Cardizem] Allergy Rash/Hives Verified 06/30/19 11:58 Penicillins Allergy Swelling Verified 06/30/19 11:58 Physical Exam Vitals: Vital Signs Temp Pulse Resp BP BP Pulse Ox 07/04/19 04:00 98.9 F 89 18 161/67 96 07/04/19 00:00 100.5 F H 71 20 158/89 96 07/03/19 19:43 99.1 F 80 18 136/83 97 07/03/19 16:00 98.6 F 113 H 16 163/87 97 07/03/19 12:00 97.0 F L 113 H 18 131/84 97 Intake and Output 07/03/19 07/04/19 07/04/19 22:59 06:59 14:59 Intake Total 0 Output Total 0 Balance 0 Intake: Oral 0 Output: Urine 0 Other: Voiding Method Incontinent Incontinent # Voids 1 1 Weight 69.7 kg - Constitutional General appearance: no acute distress - Respiratory Respiratory: bilateral: diminished - Cardiovascular Rhythm: irregularly irregular Heart sounds: normal: S1, S2 Results 07/04/19 05:47 07/04/19 05:47 CBC 07/04/19 Range/Units 05:47 WBC 4.2 (3.8-10.6) k/uL RBC 3.79 L (4.30-5.90) m/uL Hgb 12.1 L (13.0-17.5) gm/dL Hct 35.0 L (39.0-53.0) % Plt Count 152 (150-450) k/uL Comprehensive Metabolic Panel 07/04/19 Range/Units 05:47 Sodium 139 (137-145) mmol/L Potassium 3.7 (3.5-5.1) mmol/L Chloride 105 (98-107) mmol/L Carbon Dioxide 26 (22-30) mmol/L BUN 30 H (9-20) mg/dL Creatinine 0.70 (0.66-1.25) mg/dL Glucose 104 H (74-99) mg/dL Calcium 8.4 (8.4-10.2) mg/dL Current Medications Generic Name Dose Route Start Last Admin Trade Name Freq PRN Reason Stop Dose Admin Acetaminophen 650 mg 07/01/19 21:41 07/03/19 23:12 Tylenol Tab PO 650 mg Q6HR PRN Administration Fever and/ or Pain Hydrocodone Bitart/Acetaminophen 1 each 07/02/19 09:00 07/04/19 06:18 [place] 7.5-325 PO Not Given BID BORA Apixaban 2.5 mg 06/30/19 21:15 07/03/19 23:11 Eliquis PO 2.5 mg BID BORA Administration Famotidine 10 mg 07/04/19 09:00 Pepcid IV Q12HR BORA Dextrose/Sodium Chloride 1,000 mls @ 50 mls/hr 07/04/19 09:00 Dextrose 5%-Ns Iv Soln IV .Q20H [facility] Levofloxacin 500 mg/ IV 100 mls @ 100 mls/hr 07/04/19 10:00 Solution IVPB Q24H [facility] Metoprolol Tartrate 25 mg 07/03/19 21:00 07/03/19 23:11 Lopressor PO 25 mg BID BORA Administration Oseltamivir Phosphate 30 mg 07/01/19 21:00 07/03/19 23:12 Tamiflu PO 07/04/19 21:01 30 mg Q12HR BORA Administration Intake and Output 07/03/19 07/04/19 07/04/19 22:59 06:59 14:59 Intake Total 0 Output Total 0 Balance 0 Intake: Oral 0 Output: Urine 0 Other: Voiding Method Incontinent Incontinent # Voids 1 1 Weight 69.7 kg 07/04/19 05:47 07/04/19 05:47 Assessment and Plan Assessment: Assessment Generalized weakness and fatigue Mildly abnormal troponin Long-standing persistent atrial fibrillation Plan Conservative medical approach Continue the current dose of metoprolol Continue oral anticoagulation Follow-up on the echocardiogram
[2019-07-04] MEDS ORDERED: LEVOFLOXACIN 500MG-D5W PMX 500 MG in DEXTROSE/WATER 1 100ML.BAG IVPB SCH (10:00)
[2019-07-04] MEDS: METOPROLOL TARTRATE 25 MG TAB PO SCH ×2 (10:26→21:17)
[2019-07-04] MEDS: APIXABAN 2.5 MG TABLET PO SCH ×2 (10:26→21:17)
[2019-07-04] MEDS: DEXTROSE 5%-0.9% NACL 1,000 ML IV SCH (10:28)
--- NOTE | 2019-07-04 10:30 | ECHOF ---
Referral Reason:Elevated troponin level MEASUREMENTS -------- HEIGHT: 182.9 cm WEIGHT: 69.4 kg BP: 161/67 RVIDd: 3.0 cm (< 3.3) IVSd: 1.3 cm (0.6 - 1.1) LVIDd: 4.4 cm (3.9 - 5.3) LVPWd: 1.2 cm (0.6 - 1.1) IVSs: 1.7 cm LVIDs: 3.0 cm LVPWs: 1.7 cm LA Diam: 3.4 cm (2.7 - 3.8) LAESV Index (A-L): 30.34 ml/m Ao Diam: 3.3 cm (2.0 - 3.7) AV Cusp: 2.0 cm (1.5 - 2.6) MV EXCURSION: 18.221 mm (> 18.000) MV EF SLOPE: 121 mm/s (70 - 150) EPSS: 0.9 cm MV E Alexey: 0.81 m/s MV DecT: 257 ms MV A Alexey: 0.46 m/s MV E/A Ratio: 1.77 AR PHT: 674 ms RAP: 15.00 mmHg RVSP: 43.06 mmHg FINDINGS -------- Sinus rhythm. This was a technically adequate study. The left ventricular size is normal. There is mild concentric left ventricular hypertrophy. Overa ll left ventricular systolic function is mildly impaired with, an EF between 45 - 50 %. The right ventricle is normal in size. LA is midly dilated 29-33ml/m2. The right atrium is normal in size. Interatrial and interventricular septum intact. There is mild aortic valve sclerosis. There is mild aortic regurgitation. Mild mitral annular calcification present. Mild mitral regurgitation is present. Mild tricuspid regurgitation present. There is mild pulmonary hypertension. The right ventricular systolic pressure, as measured by Doppler, is 43.06mmHg. The pulmonic valve was not well visualized. The aortic root size is normal. Normal inferior vena cava with less than 50% inspiratory collapse consistent with estimated right atr ial pressure of 15 mmHg. There is no pericardial effusion. CONCLUSIONS -------- 1. Sinus rhythm. 2. This was a technically adequate study. 3. The left ventricular size is normal. 4. There is mild concentric left ventricular hypertrophy. 5. Overall left ventricular systolic function is mildly impaired with, an EF between 45 - 50 %. 6. The right ventricle is normal in size. 7. LA is midly dilated 29-33ml/m2. 8. The right atrium is normal in size. 9. Interatrial and interventricular septum intact. 10. There is mild aortic valve sclerosis. 11. There is mild aortic regurgitation. 12. Mild mitral annular calcification present. 13. Mild mitral regurgitation is present. 14. Mild tricuspid regurgitation present. 15. There is mild pulmonary hypertension. 16. The right ventricular systolic pressure, as measured by Doppler, is 43.06mmHg. 17. The pulmonic valve was not well visualized. 18. The aortic root size is normal. 19. Normal inferior vena cava with less than 50% inspiratory collapse consistent with estimated right atrial pressure of 15 mmHg. 20. There is no pericardial effusion. PRESALES SENIOR SPECIALIST: Evelin Bowman RDCS
[2019-07-04] MEDS: OSELTAMIVIR 60 MG/10 ML ORAL SYRINGE PO SCH ×2 (12:21→21:18)
[2019-07-04] MEDS: FAMOTIDINE 20 MG TAB PO SCH (21:17)
[2019-07-05] MEDS: DEXTROSE 5%-0.9% NACL 1,000 ML IV SCH (06:08)
[2019-07-05] MEDS ORDERED: LORazepam 2 MG/ML INJ IV PRN (06:59)
[2019-07-05] MEDS ORDERED: ACETAMINOPHEN TAB 325 MG TAB PO PRN (07:25)
--- NOTE | 2019-07-05 08:07 | P.PN ---
Subjective Acute influenza infection Chronic atrial fibrillation with elevated troponin Patient is a 83-year-old male with a known history of atrial fibrillation on anticoagulation with Eliquis, coronary artery disease with history of stent placement 2, osteoarthritis, hypertension, hyperlipidemia, memory impairment and osteoarthritis was brought to the hospital by EMS due to generalized weakness and lethargic. According to his patient was very weak and was not able to get out of bed for the past 24 hours prior to admission and unable to get out of his bed in the morning. Patient's decided to call EMS. Otherwise patient denied any complaints of chest pain. Patient does have some cough, mainly dry cough and shortness of breath. Patient does have chronic back pain and takes [place] 7.5 twice daily. Denied any complaints of chest pain. No fever no chills. No headache or dizziness or lightheadedness. No nausea vomiting abdominal pain or diarrhea. No dysuria or hematuria. Chest x-ray showed no acute cardio pulmonary process. EKG showed A. fib with RVR. Troponin 0.069, 0.081 and 0.082 Lactic acid 2.4 BUN 39 on admission Influenza B positive PCR. T-max 100.1 on admission 07/02/2019 Patient is currently lying in the bed comfortably. Generalized weakness is much improved. Patient is able to tolerate oral diet. No complaints of chest pain or shortness of breath. Otherwise patient is still weak and requiring support for ambulation. Troponin level went up to 0.5. Patient is asymptomatic otherwise. Currently on anticoagulation with Eliquis for atrial fibrillation 2-D cardiogram was ordered. Continue to monitor closely and PT OT will be consulted. Possible transfer to rehab 07/03/2019 Patient is currently lying in the bed comfortably. Denied any complaints of chest pain or worsening shortness of breath. Still feels weak and requires support for ambulation. 2-2D echocardiogram was ordered, report is pending at this time. will consult cardiology due to elevated troponin level. Increase metoprolol dose to 25 mg twice a day due to tachycardia. PTOT and patient may need rehab transfer. Patient does not want to go to rehab. We will discuss the family tomorrow. 07/04/2019 Patient is lying in bed, not in significant respiratory distress however these coughing and he has some respiratory congestion. Patient is poor historian. He could not provide information this morning. He has a fever of 100.5. She is normal at 4.2K, BMP is unremarkable. Troponin was elevated on several occasions at 0.082 and 0.5. Cardiology team already been consulted and echocardiogram is pending. We'll order also chest x-ray. Currently patient is on Eliquis 2.5 mg and Tamiflu, also he is on [place] 7.5 mg. we will start also gentle hydration. 07/05/2019 Patient is more awake today compared to yesterday, he is alert awake and oriented 2, he knows where he is at and he knows the year but he could not remember the name of the president, patient was updated about his illnesses and he verbalized understanding, he had normal conversation with me and he was looking to my batch looking for my name, he follows commands. Since patient mentation is improve then no need to do a CAT scan of the aid, he has chronic he adache on his Urised and ask for his medication, is still complaining of from coughing and dropped this and was added. Vitals stable. Labs are stable from yesterday. Patient currently on Eliquis 2.5 mg, continue with Tamiflu and D5 normal saline at 50 mL per hour, echocardiogram showing ejection fraction of 45- 50% and cardiology input is appreciated Objective - Vital Signs Vital signs: Vital Signs Temp 98.1 F 07/05/19 03:45 Pulse 65 07/05/19 03:45 Resp 18 07/05/19 03:45 BP 153/72 07/05/19 03:45 Pulse Ox 97 07/05/19 03:45 Intake & Output 07/04/19 07/05/19 07/05/19 18:59 06:59 18:59 Intake Total 650 Output Total 0 Balance 650 Weight 68.4 kg Intake: Intake, IV Titration 650 Amount Dextrose 5%-0.9% NaCl 1, 450 000 ml @ 50 mls/hr IV . Q20H [facility] Rx#:[id number] Levofloxacin 500Mg-D5w 200 Pmx 500 mg In Dextrose/ Water 1 100ml.bag @ 100 mls/hr IVPB Q24H [facility] Rx#: [id number] Oral 0 Output: Urine 0 Other: Voiding Method Incontinent Incontinent # Voids 1 1 - Exam -Patient is lying in the bed comfortably, he is awake but poor historian HEENT: Normocephalic. Neck is supple. Pupils reactive. Nostrils clear. Oral cavity is moist. Ears reveal no drainage. Neck reveals no JVD, carotid bruits, or thyromegaly. -CHEST EXAMINATION: Trachea is central. Symmetrical expansion. Bibasilar diminished air entry. Lung singh clear to auscultation and percussion. With a scattered Coarse crepitation CARDIAC: Normal S1, S2 with no gallops. No murmurs ABDOMEN: Soft. Bowel sounds normal. No organomegaly. No abdominal bruits. Extremities: reveal no edema. No clubbing or cyanosis Neurologically awake, alert, oriented x3 with well-coordinated movements. No focal deficits noted Skin: No rash or skin lesions. Psychiatric: Coperative. Nonsuicidal Musculoskeletal: No joint swelling or deformity. Normal range of motion. - Labs CBC & Chem 7: 07/04/19 05:47 07/04/19 05:47 Labs: Microbiology - Last 24 Hours (Table) 06/30/19 12:00 Blood Culture - Preliminary Blood No Growth after 96 hours Assessment and Plan Assessment: Acute influenza B infection Elevated troponin, rule out acute coronary syndrome Chronic Atrial fibrillation with rapid regular rate on admission. Rate is controlled. Lactic acidosis 2.4 improved with hydration Dehydration and volume depletion Chronic atrial fibrillation on anticoagulation with Eliquis Coronary artery disease with history of stent placement GERD Hypertension and hyperlipidemia Memory impairment Osteoarthritis Psoriasis History of diverticulitis Osteoarthritis Previous history of smoking Plan: This is a pleasant 83 years old male who presents with abdominal ones and elevated troponin. Continue with Tamiflu, resume gentle hydration. Cardiology input is appreciated and follow-up recommendation and echocardiogram is reviewed. Labs and medication were reviewed.. Continue same treatment. Continue with symptomatic treatment. Resume home medication. Monitor lytes and vitals. DVT and GI prophylaxis. Further recommendations of the clinical course of the patient DVT prophylaxis: Eliquis GI Prophylaxis: Pepcid PT/OT: Patient will benefit from subacute rehab Prognosis is guarded
[2019-07-05] MEDS: BUTALB/APAP/CAFF 50-325-40MG TAB PO PRN (09:35)
--- NOTE | 2019-07-05 11:27 | FL ---
MODIFIED SWALLOW / DEGLUTITION STUDY DATE OF EXAM: 07/05/2019 CLINICAL HISTORY: 83-year-old male with wet cough after eating, presents with influenza and confusion , rule out silent aspiration. TECHNIQUE: Deglutition study is performed utilizing thin liquid barium, puree consistency barium, an d barium coated cracker. Total fluoroscopy time: 1 minute 18 seconds. Total images: None. Real-time fluoroscopy support was provided to speech pathology. COMPARISON: None. FINDINGS: The patient is edentulous. The oral and pharyngeal phases show satisfactory initiation and propagatio n with all modalities tested. There is no evidence of penetration or aspiration with any modality marta jerzy. Mild residuals are noted. IMPRESSION: Functional swallow. No evidence for solid aspiration. Please refer to speech therapist notes for further details if necessary.
[2019-07-05] MEDS: HYDROcodone/APAP 7.5-325MG 1 EACH TAB PO SCH ×2 (12:30→21:11)
[2019-07-05] MEDS: FAMOTIDINE 20 MG TAB PO SCH ×2 (12:31→21:11)
[2019-07-05] MEDS: METOPROLOL TARTRATE 25 MG TAB PO SCH ×2 (12:31→21:11)
[2019-07-05] MEDS: LEVOFLOXACIN 500 MG TAB PO SCH (12:31)
[2019-07-05] MEDS: APIXABAN 2.5 MG TABLET PO SCH ×2 (12:32→21:12)
[2019-07-05] MEDS: guaiFENesin-DM 100-10MG/5ML 10 ML CUP PO SCH ×2 (12:33→17:33)
--- NOTE | 2019-07-05 12:37 | P.PN ---
Subjective Progress Note Date: 07/05/19 Principal diagnosis: Mildly abnormal cardiac enzymes This is an 83-year-old gentleman who is in poor physical and mental shape with a past medical history significant for long-standing persistent atrial fibrillation on oral anticoagulation with Eliquis as well as history of coronary artery disease and prior revascularization in term of stenting, as well as hypertension, dyslipidemia, and advanced dementia, was brought to the emergency room for increased weakness as well as lethargy. Overall the patient is a poor historian. According to the chart as well as the nurse taking care of the patient, the patient has been very weak lately. No specific symptoms of chest pain or chest discomfort, shortness of breath, dizziness, heart racing, or syncope. The patient's called the EMS where the patient was brought to the emergency room. When he was admitted to the hospital initially he was tachycardic with underlying atrial fibrillation. The blood pressure has been s table throughout the hospital stay. The EKG did not show any significant ST or T-wave abnormalities beside diffuse nonspecific changes. Earlier today the patient was having some temperature and he is in process of being started on antibiotic. No symptoms of nausea or vomiting, sweating, abdominal pain or abdominal discomfort. His physical examination overall was unremarkable and he was euvolemic when he was seen later on today. The troponin was slightly elevated but the patient was tachycardic when he presented to the emergency room. The patient was seen this morning, July [id number]. He is feeling overall better. He denies any symptoms of chest pain or chest discomfort. The e chocardiogram revealed mildly impaired LV function was EF between 45-50%. No significant valvular abnormalities. I would continue the conservative medical approach and continue following up with the patient. Objective - Vital Signs Vital signs: Vital Signs Temp 98.1 F 07/05/19 03:45 Pulse 64 07/05/19 08:00 Resp 16 07/05/19 12:00 BP 153/72 07/05/19 08:00 Pulse Ox 99 07/05/19 08:00 Intake & Output 07/04/19 07/05/19 07/05/19 18:59 06:59 18:59 Intake Total 650 Output Total 0 200 Balance 650 -200 Weight 68.4 kg Intake: Intake, IV Titration 650 Amount Dextrose 5%-0.9% NaCl 1, 450 000 ml @ 50 mls/hr IV . Q20H [facility] Rx#:[id number] Levofloxacin 500Mg-D5w 200 Pmx 500 mg In Dextrose/ Water 1 100ml.bag @ 100 mls/hr IVPB Q24H [facility] Rx#: [id number] Oral 0 Output: Urine 0 200 Other: Voiding Method Incontinent Incontinent Incontinent # Voids 1 1 - Constitutional General appearance: Present: no acute distress - Respiratory Respiratory: bilateral: CTA - Cardiovascular Heart sounds: normal: S1, S2 - Labs CBC & Chem 7: 07/04/19 05:47 07/04/19 05:47 Labs: Microbiology - Last 24 Hours (Table) 06/30/19 12:00 Blood Culture - Preliminary Blood No Growth after 96 hours Assessment and Plan Assessment: Assessment Generalized weakness and fatigue Mildly abnormal troponin Long-standing persistent atrial fibrillation Plan Conservative medical approach Continue the current dose of metoprolol Continue oral anticoagulation The echo was reviewed and revealed mildly impaired LV function Possible discharge in the next 24 hours
[2019-07-05] MEDS: OSELTAMIVIR 75 MG CAP PO SCH (17:32)
[2019-07-06] MEDS: guaiFENesin-DM 100-10MG/5ML 10 ML CUP PO SCH ×3 (00:16→06:35)
[2019-07-06] MEDS: DEXTROSE 5%-0.9% NACL 1,000 ML IV SCH ×2 (05:33→21:05)
[2019-07-06] MEDS ORDERED: guaiFENesin SYRUP 100MG/5ML 200 MG/10 ML CUP PO PRN (08:03)
--- NOTE | 2019-07-06 08:06 | P.PN ---
Subjective Acute influenza infection Chronic atrial fibrillation with elevated troponin Patient is a 83-year-old male with a known history of atrial fibrillation on anticoagulation with Eliquis, coronary artery disease with history of stent placement 2, osteoarthritis, hypertension, hyperlipidemia, memory impairment and osteoarthritis was brought to the hospital by EMS due to generalized weakness and lethargic. According to his patient was very weak and was not able to get out of bed for the past 24 hours prior to admission and unable to get out of his bed in the morning. Patient's decided to call EMS. Otherwise patient denied any complaints of chest pain. Patient does have some cough, mainly dry cough and shortness of breath. Patient does have chronic back pain and takes [place] 7.5 twice daily. Denied any complaints of chest pain. No fever no chills. No headache or dizziness or lightheadedness. No nausea vomiting abdominal pain or diarrhea. No dysuria or hematuria. Chest x-ray showed no acute cardio pulmonary process. EKG showed A. fib with RVR. Troponin 0.069, 0.081 and 0.082 Lactic acid 2.4 BUN 39 on admission Influenza B positive PCR. T-max 100.1 on admission 07/02/2019 Patient is currently lying in the bed comfortably. Generalized weakness is much improved. Patient is able to tolerate oral diet. No complaints of chest pain or shortness of breath. Otherwise patient is still weak and requiring support for ambulation. Troponin level went up to 0.5. Patient is asymptomatic otherwise. Currently on anticoagulation with Eliquis for atrial fibrillation 2-D cardiogram was ordered. Continue to monitor closely and PT OT will be consulted. Possible transfer to rehab 07/03/2019 Patient is currently lying in the bed comfortably. Denied any complaints of chest pain or worsening shortness of breath. Still feels weak and requires support for ambulation. 2-2D echocardiogram was ordered, report is pending at this time. will consult cardiology due to elevated troponin level. Increase metoprolol dose to 25 mg twice a day due to tachycardia. PTOT and patient may need rehab transfer. Patient does not want to go to rehab. We will discuss the family tomorrow. 07/04/2019 Patient is lying in bed, not in significant respiratory distress however these coughing and he has some respiratory congestion. Patient is poor historian. He could not provide information this morning. He has a fever of 100.5. She is normal at 4.2K, BMP is unremarkable. Troponin was elevated on several occasions at 0.082 and 0.5. Cardiology team already been consulted and echocardiogram is pending. We'll order also chest x-ray. Currently patient is on Eliquis 2.5 mg and Tamiflu, also he is on [place] 7.5 mg. we will start also gentle hydration. 07/05/2019 Patient is more awake today compared to yesterday, he is alert awake and oriented 2, he knows where he is at and he knows the year but he could not remember the name of the president, patient was updated about his illnesses and he verbalized understanding, he had normal conversation with me and he was looking to my batch looking for my name, he follows commands. Since patient mentation is improve then no need to do a CAT scan of the aid, he has chronic he adache on his Urised and ask for his medication, is still complaining of from coughing and dropped this and was added. Vitals stable. Labs are stable from yesterday. Patient currently on Eliquis 2.5 mg, continue with Tamiflu and D5 normal saline at 50 mL per hour, echocardiogram showing ejection fraction of 45- 50% and cardiology input is appreciated 07/06/2019 Patient was [facility] yesterday as he was improving, yesterday was more awake and interactive, however this morning is getting worse, he have some secretions that he has difficulty expectorating them, he could not talk to me due to his respiratory distress, his vitals are stable this morning, his temperature is 90.8, heart rate 78, breathing rate 18, blood pressure 127/79 and is saturating 95% on room air. We going to repeat labs and chest x-ray this morning. Central Robitussin DM 2 Robitussin. Continue with Tamiflu and Levaquin, his IV fluids was held this morning, he is also on Eliquis 2.5. I discussed the case with his over the phone update her with his worsening condition, and the workup and management plan and she verbalized understanding and acceptance, she confirmed to me he is DO NOT RESUSCITATE. And said she will try to come to the hospital tomorrow to discussed with the medical team. Review of systems: N/a Active Medications Generic Name Dose Route Start Last Admin Trade Name Freq PRN Reason Stop Dose Admin Acetaminophen 325 mg 07/05/19 07:25 Tylenol Tab PO Q6HR PRN Fever and/ or Pain Acetaminophen/Butalbital/Caffeine 2 each 07/05/19 07:25 07/05/19 09:35 Fioricet 50-325-40 PO 2 each Q6HR PRN Administration Headache Hydrocodone Bitart/Acetaminophen 1 each 07/02/19 09:00 07/05/19 21:11 [place] 7.5-325 PO 1 each BID BORA Administration Apixaban 2.5 mg 06/30/19 21:15 07/05/19 21:12 Eliquis PO 2.5 mg BID BORA Administration Famotidine 10 mg 07/04/19 21:00 07/05/19 21:11 Pepcid PO 10 mg Q12HR BORA Administration Guaifenesin 200 mg 07/06/19 08:03 Robitussin PO Q6H PRN Cough Dextrose/Sodium Chloride 1,000 mls @ 50 mls/hr 07/04/19 09:00 07/06/19 05:33 Dextrose 5%-Ns Iv Soln IV 50 mls/hr .Q20H BORA Administration Levofloxacin 500 mg 07/05/19 09:00 07/05/19 12:31 Levaquin PO 500 mg DAILY BORA Administration Methylprednisolone Sodium Succinate 40 mg 07/06/19 08:00 Solu-Medrol IV Q8HR [facility] Metoprolol Tartrate 25 mg 07/03/19 21:00 07/05/19 21:11 Lopressor PO 25 mg BID BORA Administration Oseltamivir Phosphate 75 mg 07/05/19 16:59 07/05/19 17:32 Tamiflu PO 07/07/19 09:01 75 mg Q12HR BORA Administration Objective - Vital Signs Vital signs: Vital Signs Temp 98.0 F 07/06/19 05:45 Pulse 78 07/06/19 05:45 Resp 18 07/06/19 05:45 BP 127/79 07/06/19 05:45 Pulse Ox 95 07/06/19 05:45 Intake & Output 07/05/19 07/06/19 07/06/19 18:59 06:59 18:59 Intake Total 600 200 Output Total 200 100 Balance 400 100 Weight 68.4 kg 70.7 kg Intake: Intake, IV Titration 600 Amount Dextrose 5%-0.9% NaCl 1, 600 000 ml @ 50 mls/hr IV . Q20H [facility] Rx#:[id number] Oral 200 Output: Urine 200 100 Other: Voiding Method Incontinent Incontinent # Voids 1 1 - Exam -Patient is lying in the bed, confused, and mild to moderate respiratory distress, he is awake but poor historian HEENT: Normocephalic. Neck is supple. Pupils reactive. Nostrils clear. Oral cavity is moist. Ears reveal no drainage. Neck reveals no JVD, carotid bruits, or thyromegaly. -CHEST EXAMINATION: Trachea is central. Symmetrical expansion. Bibasilar diminished air entry. Lung singh clear to auscultation and percussion. With a scattered Coarse crepitation CARDIAC: Normal S1, S2 with no gallops. No murmurs ABDOMEN: Soft. Bowel sounds normal. No organomegaly. No abdominal bruits. Extremities: reveal no edema. No clubbing or cyanosis Neurologically awake, alert, oriented x3 with well-coordinated movements. No focal deficits noted Skin: No rash or skin lesions. Psychiatric: Coperative. Nonsuicidal Musculoskeletal: No joint swelling or deformity. Normal range of motion. - Labs CBC & Chem 7: 07/04/19 05:47 07/04/19 05:47 Labs: Microbiology - Last 24 Hours (Table) 06/30/19 12:00 Blood Culture - Preliminary Blood No Growth after 120 hours Assessment and Plan Assessment: Acute influenza B infection acute tracheobronchitis secondary to above Metabolic encephalopathy, secondary to above Elevated troponin, rule out acute coronary syndrome. 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 Rate is controlled. Lactic acidosis 2.4 improved with hydration Dehydration and volume depletion Chronic atrial fibrillation on anticoagulation with Eliquis Coronary artery disease with history of stent placement GERD Hypertension and hyperlipidemia Memory impairment Osteoarthritis Psoriasis History of diverticulitis Osteoarthritis Previous history of smoking Plan: This is a pleasant 83 years old male who presents with abdominal ones and elevat ed troponin. Continue with Tamiflu, Levaquin and hold gentle hydration. Cardiology input is appreciated and follow-up recommendation and echocardiogram is reviewed. He also has for pulmonary evaluation, start the patient on Solu- Medrol. Labs and medication were reviewed.. Continue same treatment. Continue with symptomatic treatment. Resume home medication. Monitor lytes and vitals. DVT and GI prophylaxis. Further recommendations of the clinical course of the patient DVT prophylaxis: Eliquis GI Prophylaxis: Pepcid PT/OT: Patient will benefit from subacute rehab Prognosis remains guarded.
--- NOTE | 2019-07-06 08:13 | XR ---
EXAMINATION TYPE: XR chest 1V DATE OF EXAM: 07/06/2019 COMPARISON: Prior chest x-ray 07/04/2019 HISTORY: Follow-up fever TECHNIQUE: Single frontal view of the chest is obtained. FINDINGS: There is no focal air space opacity, pleural effusion, or pneumothorax seen. The cardiac silhouette size is within normal limits. The osseous structures are intact. Patient is rotated. Ret ained contrast material present within the colon. Lung volumes are low. Aorta is dense. Coronary vic ry stent is present. IMPRESSION: No acute process. Coronary artery disease.
[2019-07-06] MEDS: OSELTAMIVIR 75 MG CAP PO SCH ×2 (08:29→20:40)
[2019-07-06] MEDS: FAMOTIDINE 20 MG TAB PO SCH ×2 (08:29→20:40)
[2019-07-06] MEDS: HYDROcodone/APAP 7.5-325MG 1 EACH TAB PO SCH ×2 (08:29→20:41)
[2019-07-06] MEDS: APIXABAN 2.5 MG TABLET PO SCH ×2 (08:30→20:41)
[2019-07-06] MEDS: LEVOFLOXACIN 500 MG TAB PO SCH (08:30)
[2019-07-06] MEDS: METOPROLOL TARTRATE 25 MG TAB PO SCH ×2 (08:30→20:41)
[2019-07-06] MEDS: methylPREDNISolone SOD SUCCI 40 MG/ML 1 ML VIAL IV SCH ×2 (12:35→17:51)
--- NOTE | 2019-07-06 12:36 | P.CNPUL ---
History of Present Illness Consult date: 07/06/19 Reason for consult: dyspnea, cough, pneumonia Chief complaint: Influenza B pneumonia History of present illness: Patient is a 83-year-old male seen and evaluated examined on 6 floor, patient has a known history of atrial fibrillation on anticoagulation with Eliquis, coronary artery disease with history of stent placement 2, osteoarthritis, hypertension, hyperlipidemia, memory impairment and osteoarthritis was brought to the hospital by EMS due to generalized weakness and lethargic. According to his patient was very weak and was not able to get out of bed for the past 24 hours prior to admission and unable to get out of his bed in the morning. Patient's decided to call EMS. Otherwise patient denied any complaints of chest pain. Patient does have some cough, mainly dry cough and shortness of breath. Patient does have chronic back pain and takes [place] 7.5 twice daily. Denied any complaints of chest pain. No fever no chills. No headache or dizziness or lightheadedness. No nausea vomiting abdominal pain or diarrhea. No dysuria or hematuria. Admit Chest x-ray showed no acute cardio pulmonary process. EKG showed A. fib with RVR. Troponin 0.069, 0.081 and 0.082, Lactic acid 2.4, BUN 39 on admission, Influenza B positive PCR. T-max 100.1 on admission, Patient was monitored on Gen. medical for and doing fairly well until this morning respiratory status getting worse, he have some secretions that he has difficulty expectorating them, he could not talk to me due to his respiratory d istress, his vitals are stable this morning, his temperature is 90.8, heart rate 78, breathing rate 18, blood pressure 127/79 and is saturating 95% on room air. Currently patient is on Robitussin DM 2 Robitussin. Continue with Tamiflu and Levaquin, his IV fluids was held this morning, he is also on Eliquis 2.5. Patient confirmed he is DO NOT RESUSCITATE. X-ray this morning reviewed no active infiltrate identified Review of Systems All systems: negative Past Medical History Past Medical History: Atrial Fibrillation, Coronary Artery Disease (CAD), Cancer, GERD/Reflux, Hyperlipidemia, Hypertension, Memory Impairment, Osteoarthritis (OA), Skin Disorder Additional Past Medical History / Comment(s): skin cancer, psoriasis, sinus problems,diverticulitis, bulging discs-back pain. Last Myocardial Infarction Date:: 01/27/15 History of Any Multi-Drug Resistant Organisms: None Reported Past Surgical History: Heart Catheterization With Stent, Joint Replacement Additional Past Surgical History / Comment(s): cardiac stents x2, right knee replacement, Revision total R knee, right quadricep tendon rupture with repair, hemorroidectomy, colonoscopy/egd, lt inguinal hernia, hip replacement, left eye cataract removed Past Anesthesia/Blood Transfusion Reactions: Previous Problems w/ Anesthesia Additional Past Anesthesia/Blood Transfusion Reaction / Comment(s): "DISORIENTATION AFTER RECEIVING ANESTHESIA FOR A COUPLE OF DAYS" Date of Last Stent Placement:: 2015 Smoking Status: Former smoker - Past Family History Sister(s) Family Medical History: Cancer Brother(s) Family Medical History: Cancer Additional Family Medical History / Comment(s): of lung cancer Father Family Medical History: No Reported History Additional Family Medical History / Comment(s): was smoker, from pneumonia at age 82 yrs. Mother Family Medical History: Cancer Additional Family Medical History / Comment(s): colon cancer Medications and Allergies Home Medications Medication Instructions Recorded Confirmed Type Apixaban [Eliquis] 2.5 mg PO BID 01/17/16 06/30/19 History Cholecalciferol [Vitamin D3 (25 2,000 unit PO DAILY 01/17/16 06/30/19 History Mcg = 1000 Iu)] Vitamin A 10,000 unit PO DAILY 03/18/16 06/30/19 History Nobqwchpzv-IDY-Bkhnuqh-Codeine 1 - 2 cap PO TID PRN 12/03/16 06/30/19 History [Fiorinal w/Cod 07-648-47-30MG] HYDROcodone/APAP 7.5-325MG [[place] 1 tab PO BID 06/30/19 06/30/19 History 7.5-325] Metoprolol Tartrate [Lopressor] 12.5 mg PO BID 06/30/19 06/30/19 History Allergies Allergy/AdvReac Type Severity Reaction Status Date / Time diltiazem HCl [From Cardizem] Allergy Rash/Hives Verified 06/30/19 11:58 Penicillins Allergy Swelling Verified 06/30/19 11:58 Physical Exam Vitals: Vital Signs Temp Pulse Resp BP Pulse Ox 07/06/19 05:45 98.0 F 78 18 127/79 95 07/05/19 20:00 98.4 F 70 16 143/78 95 07/05/19 16:00 65 16 169/86 99 07/05/19 15:48 94 L Intake and Output 07/05/19 07/06/19 07/06/19 22:59 06:59 14:59 Intake Total 700 100 Output Total 100 Balance 600 100 Intake: Intake, IV Titration 600 Amount Dextrose 5%-0.9% NaCl 1, 600 000 ml @ 50 mls/hr IV . Q20H [facility] Rx#:[id number] Oral 100 100 Output: Urine 100 Other: Voiding Method Incontinent # Voids 1 1 Weight 70.7 kg - Constitutional General appearance: cooperative, disheveled, mild distress - EENT Eyes: EOMI, PERRLA ENT: normal oropharynx Ears: bilateral: normal - Neck Neck: normal ROM Carotids: bilateral: upstroke normal Thyroid: bilateral: normal size - Respiratory Respiratory: bilateral: diminished, wheezing - Cardiovascular Rhythm: regular Heart sounds: normal: S1, S2 - Gastrointestinal General gastrointestinal: normal bowel sounds - Integumentary Integumentary: decreased turgor - Neurologic Neurologic: CNII-XII intact - Musculoskeletal Musculoskeletal: gait normal, generalized weakness, strength equal bilaterally - Psychiatric Psychiatric: A&O x's 3, appropriate affect, intact judgment & insight Patient overall appeared weak Results - Laboratory Findings CBC and BMP: 07/04/19 05:47 07/04/19 05:47 PT/INR, D-dimer PT 10.6 sec (9.0-12.0) 06/30/19 12:00 INR 1.0 (<1.2) 06/30/19 12:00 Abnormal lab findings: Abnormal Labs 06/30/19 06/30/19 06/30/19 12:00 12:00 12:00 RBC Hgb Hct Plt Count Lymphocytes # 0.5 L Chloride Carbon Dioxide 21 L BUN 39 H Glucose 139 H Plasma Lactic Acid Joe 2.4 H* Calcium Troponin I Urine Protein Urine Ketones Urine Blood Influenza Type B (PCR) 06/30/19 06/30/19 06/30/19 12:00 12:00 12:00 RBC Hgb Hct Plt Count Lymphocytes # Chloride Carbon Dioxide BUN Glucose Plasma Lactic Acid Joe Calcium Troponin I 0.069 H* Urine Protein 1+ H Urine Ketones 1+ H Urine Blood Trace H Influenza Type B (PCR) Detected H 06/30/19 07/01/19 07/02/19 20:37 00:47 06:30 RBC 3.83 L Hgb 12.3 L Hct 35.1 L Plt Count 112 L Lymphocytes # 0.8 L Chloride Carbon Dioxide BUN Glucose Plasma Lactic Acid Joe Calcium Troponin I 0.081 H* 0.082 H* Urine Protein Urine Ketones Urine Blood Influenza Type B (PCR) 07/02/19 07/02/19 07/03/19 06:30 06:30 06:11 RBC 4.10 L Hgb Hct 37.8 L Plt Count 132 L Lymphocytes # 0.6 L Chloride 113 H Carbon Dioxide 20 L BUN 30 H Glucose Plasma Lactic Acid Joe Calcium 8.2 L Troponin I 0.512 H* Urine Protein Urine Ketones Urine Blood Influenza Type B (PCR) 07/03/19 07/04/19 07/04/19 06:11 05:47 05:47 RBC 3.79 L Hgb 12.1 L Hct 35.0 L Plt Count Lymphocytes # Chloride Carbon Dioxide BUN 32 H 30 H Glucose 102 H 104 H Plasma Lactic Acid Joe Calcium Troponin I Urine Protein Urine Ketones Urine Blood Influenza Type B (PCR) - Diagnostic Findings Chest x-ray: report reviewed, image reviewed (Finding as noted above) Assessment and Plan Assessment: Acute COPD exacerbation Tracheobronchitis Influenza B pneumonia Metabolic encephalopathy Chronic atrial fibrillation History of coronary artery disease Dyslipidemia hypertension hypertensive cardiovascular disease Plan: Patient appeared to have difficulty in handling the secretions upper airway agree with antibiotics and steroids will add bronchodilator agree with Mucomyst follow clinical course closely Time with Patient: Greater than 30
[2019-07-06] MEDS: IPRATROPIUM-ALBUTEROL 3 ML NEB INHALATION SCH ×2 (16:00→21:39)
[2019-07-06] MEDS: BUDESONIDE 0.5 MG/2 ML NEBU INHALATION SCH (21:39)
[2019-07-06] MEDS ORDERED: METOPROLOL TARTRATE 25 MG TAB PO STA (21:46)
[2019-07-07] MEDS: methylPREDNISolone SOD SUCCI 40 MG/ML 1 ML VIAL IV SCH ×3 (00:11→15:57)
--- NOTE | 2019-07-07 07:19 | P.PN ---
Subjective Acute influenza infection Chronic atrial fibrillation with elevated troponin Patient is a 83-year-old male with a known history of atrial fibrillation on anticoagulation with Eliquis, coronary artery disease with history of stent placement 2, osteoarthritis, hypertension, hyperlipidemia, memory impairment and osteoarthritis was brought to the hospital by EMS due to generalized weakness and lethargic. According to his patient was very weak and was not able to get out of bed for the past 24 hours prior to admission and unable to get out of his bed in the morning. Patient's decided to call EMS. Otherwise patient denied any complaints of chest pain. Patient does have some cough, mainly dry cough and shortness of breath. Patient does have chronic back pain and takes [place] 7.5 twice daily. Denied any complaints of chest pain. No fever no chills. No headache or dizziness or lightheadedness. No nausea vomiting abdominal pain or diarrhea. No dysuria or hematuria. Chest x-ray showed no acute cardio pulmonary process. EKG showed A. fib with RVR. Troponin 0.069, 0.081 and 0.082 Lactic acid 2.4 BUN 39 on admission Influenza B positive PCR. T-max 100.1 on admission 07/02/2019 Patient is currently lying in the bed comfortably. Generalized weakness is much improved. Patient is able to tolerate oral diet. No complaints of chest pain or shortness of breath. Otherwise patient is still weak and requiring support for ambulation. Troponin level went up to 0.5. Patient is asymptomatic otherwise. Currently on anticoagulation with Eliquis for atrial fibrillation 2-D cardiogram was ordered. Continue to monitor closely and PT OT will be consulted. Possible transfer to rehab 07/03/2019 Patient is currently lying in the bed comfortably. Denied any complaints of chest pain or worsening shortness of breath. Still feels weak and requires support for ambulation. 2-2D echocardiogram was ordered, report is pending at this time. will consult cardiology due to elevated troponin level. Increase metoprolol dose to 25 mg twice a day due to tachycardia. PTOT and patient may need rehab transfer. Patient does not want to go to rehab. We will discuss the family tomorrow. 07/04/2019 Patient is lying in bed, not in significant respiratory distress however these coughing and he has some respiratory congestion. Patient is poor historian. He could not provide information this morning. He has a fever of 100.5. She is normal at 4.2K, BMP is unremarkable. Troponin was elevated on several occasions at 0.082 and 0.5. Cardiology team already been consulted and echocardiogram is pending. We'll order also chest x-ray. Currently patient is on Eliquis 2.5 mg and Tamiflu, also he is on [place] 7.5 mg. we will start also gentle hydration. 07/05/2019 Patient is more awake today compared to yesterday, he is alert awake and oriented 2, he knows where he is at and he knows the year but he could not remember the name of the president, patient was updated about his illnesses and he verbalized understanding, he had normal conversation with me and he was looking to my batch looking for my name, he follows commands. Since patient mentation is improve then no need to do a CAT scan of the aid, he has chronic he adache on his Urised and ask for his medication, is still complaining of from coughing and dropped this and was added. Vitals stable. Labs are stable from yesterday. Patient currently on Eliquis 2.5 mg, continue with Tamiflu and D5 normal saline at 50 mL per hour, echocardiogram showing ejection fraction of 45- 50% and cardiology input is appreciated 07/06/2019 Patient [facility] yesterday as he was improving, yesterday was more awake and interactive, however this morning is getting worse, he have some secretions that he has difficulty expectorating them, he could not talk to me due to his respiratory distress, his vitals are stable this morning, his temperature is 90.8, heart rate 78, breathing rate 18, blood pressure 127/79 and is saturating 95% on room air. We going to repeat labs and chest x-ray this morning. Central Robitussin DM 2 Robitussin. Continue with Tamiflu and Levaquin, his IV fluids was held this morning, he is also on Eliquis 2.5. I discussed the case with his over the phone update her with his worsening condition, and the workup and management plan and she verbalized understanding and acceptance, she confirmed to me he is DO NOT RESUSCITATE. And said she will try to come to the hospital tomorrow to discussed with the medical team. 07/07/2019 Patient is still confused and weak, patient could not provide information and told due to his weakness on coughing, only slight improvement compared to yesterday. Patient has no fever but he is tachycardic with heart rate in 120, blood pressure 133/89 and he is saturating 99% on room air. We were going to add a small dose of beta harleen for his high heart rate, at home he was on metoprolol 50 mg twice a day, we going to increase it to 3 times a day for today Check labs. Patient has been afebrile for the last 2 days. Pulmonary input is appreciated. Prognosis remains guarded. Repeat chest x-ray from today looks clear to me, pending final report. He remains on D5 normal saline at 50, Solu-Medrol 40 mg, Tamiflu and Levaquin, Eliquis, and bronchodilators Objective - Vital Signs Vital signs: Vital Signs Temp 97.2 F L 07/07/19 05:35 Pulse 120 H 07/07/19 05:35 Resp 20 07/07/19 05:35 BP 133/89 07/07/19 05:35 Pulse Ox 99 07/07/19 05:35 Intake & Output 07/06/19 07/07/19 07/07/19 18:59 06:59 18:59 Intake Total 0 200 Balance 0 200 Intake: Intake, IV Titration 0 Amount Dextrose 5%-0.9% NaCl 1, 0 000 ml @ 50 mls/hr IV . Q20H [facility] Rx#:[id number] Oral 200 Other: Voiding Method Incontinent # Voids 3 - Exam -Patient is lying in the bed, confused, and mild to moderate respiratory distress, he is awake but poor historian HEENT: Normocephalic. Neck is supple. Pupils reactive. Nostrils clear. Oral cavity is moist. Ears reveal no drainage. Neck reveals no JVD, carotid bruits, or thyromegaly. -CHEST EXAMINATION: Trachea is central. Symmetrical expansion. Bibasilar diminished air entry. Lung singh clear to auscultation and percussion. With a scattered Coarse crepitation CARDIAC: Normal S1, S2 with no gallops. No murmurs ABDOMEN: Soft. Bowel sounds normal. No organomegaly. No abdominal bruits. Extremities: reveal no edema. No clubbing or cyanosis Neurologically awake, alert, oriented x3 with well-coordinated movements. No focal deficits noted Skin: No rash or skin lesions. Psychiatric: Coperative. Nonsuicidal Musculoskeletal: No joint swelling or deformity. Normal range of motion. - Labs CBC & Chem 7: 07/04/19 05:47 07/04/19 05:47 Labs: Microbiology - Last 24 Hours (Table) 06/30/19 12:00 Blood Culture - Final Blood No Growth after 144 hours Assessment and Plan Assessment: Acute influenza B infection acute tracheobronchitis secondary to above Metabolic encephalopathy, secondary to above Severe lethargy and fatigue due to his infection and heart problem. Elevated troponin, rule out acute coronary syndrome. Wage Analyst recommends to continue medical therapy Chronic Atrial fibrillation with rapid regular rate on admission. Paroxysmal RVR Lactic acidosis 2.4 improved with hydration Dehydration and volume depletion Chronic atrial fibrillation on anticoagulation with Eliquis Coronary artery disease with history of stent placement GERD Hypertension and hyperlipidemia Memory impairment Osteoarthritis Psoriasis History of diverticulitis Osteoarthritis Previous history of smoking Plan: This is a pleasant 83 years old male who presents with abdominal ones and elevat ed troponin. Continue with Tamiflu, Levaquin and hold gentle hydration. Cardiology input is appreciated and follow-up recommendation and echocardiogram is reviewed. He also has for pulmonary evaluation, start the patient on Solu- Medrol. Continue with bronchodilator. Labs and medication were reviewed.. Continue same treatment. Continue with symptomatic treatment. Resume home medication. Monitor lytes and vitals. DVT and GI prophylaxis. Further recommendations of the clinical course of the patient DVT prophylaxis: Eliquis GI Prophylaxis: Pepcid PT/OT: Patient will benefit from subacute rehab Prognosis remains guarded.
[2019-07-07] MEDS: BUDESONIDE 0.5 MG/2 ML NEBU INHALATION SCH ×2 (08:14→20:58)
[2019-07-07] MEDS: IPRATROPIUM-ALBUTEROL 3 ML NEB INHALATION SCH ×4 (08:14→20:58)
[2019-07-07] MEDS: FAMOTIDINE 20 MG TAB PO SCH ×2 (08:45→21:34)
[2019-07-07] MEDS: METOPROLOL TARTRATE 50 MG TAB PO SCH ×3 (08:46→21:26)
[2019-07-07] MEDS: HYDROcodone/APAP 7.5-325MG 1 EACH TAB PO SCH ×2 (08:46→21:27)
[2019-07-07] MEDS: LEVOFLOXACIN 500 MG TAB PO SCH (08:46)
[2019-07-07] MEDS: APIXABAN 2.5 MG TABLET PO SCH ×2 (08:46→21:26)
[2019-07-07] MEDS: OSELTAMIVIR 75 MG CAP PO SCH (08:46)
[2019-07-07] MEDS ORDERED: METOPROLOL TARTRATE 50 MG TAB PO SCH (09:00)
[2019-07-07 09:49] LABS: African American GFR (CKD) >90 (>60 ml/min/1.73 sqM); Anion Gap 7 mmol/L; Blood Urea Nitrogen 25 mg/dL (9-20); Calcium 8.9 mg/dL (8.4-10.2); Carbon Dioxide 29 mmol/L (22-30); Chloride 104 mmol/L (98-107); Glucose 160 mg/dL (74-99); Non-African American GFR(CKD) 88 (>60 ml/min/1.73 sqM); Potassium 3.9 mmol/L (3.5-5.1); Sodium 140 mmol/L (137-145)
--- NOTE | 2019-07-07 10:42 | XR ---
EXAMINATION TYPE: XR chest 1V portable DATE OF EXAM: 07/07/2019 COMPARISON: Prior chest x-ray 07/06/2019 HISTORY: Pneumonia TECHNIQUE: Single frontal view of the chest is obtained. FINDINGS: Patient is rotated. Retained contrast present within the colon. No evident airspace diseas e, pneumothorax, or pleural effusion. Cardiac mediastinal silhouette, pulmonary vascularity and rudi are unchanged. Lung volumes are low. Left costophrenic angle not included on exam. Coronary artery st ent is present. IMPRESSION: No acute process. Consider PA and lateral chest x-ray for better evaluation. Expiratory rotated exam.
[2019-07-07 11:09] LABS: Basophils % (A) 0 %; Eosinophils % (A) 0 %; HGB 13.6 gm/dL (13.0-17.5); Lymphocytes # (A) 0.7 k/uL (1.0-4.8); Lymphocytes % (A) 12 %; MCH 31.4 pg (25.0-35.0); MCHC 34.1 g/dL (31.0-37.0); MCV 92.1 fL (80.0-100.0); Mean Platelet Volume 9.3; Monocytes # (A) 0.3 k/uL (0-1.0); Monocytes % (A) 4 %; Neutrophils % (A) 82 %; Platelet Count 238 k/uL (150-450); RBC 4.35 m/uL (4.30-5.90); RDW 13.6 % (11.5-15.5); WBC 6.1 k/uL (3.8-10.6)
[2019-07-07] MEDS: BUTALB/APAP/CAFF 50-325-40MG TAB PO PRN (13:34)
[2019-07-07] MEDS: DEXTROSE 5%-0.9% NACL 1,000 ML IV SCH (17:30)
[2019-07-08] MEDS: methylPREDNISolone SOD SUCCI 40 MG/ML 1 ML VIAL IV SCH ×4 (00:28→23:35)
[2019-07-08] MEDS: IPRATROPIUM-ALBUTEROL 3 ML NEB INHALATION SCH ×4 (08:39→19:08)
[2019-07-08] MEDS: BUDESONIDE 0.5 MG/2 ML NEBU INHALATION SCH ×2 (08:39→18:51)
[2019-07-08 09:25] LABS: Basophils % (A) 0 %; Eosinophils % (A) 0 %; HCT 36.1 % (39.0-53.0); HGB 11.8 gm/dL (13.0-17.5); Lymphocytes # (A) 0.8 k/uL (1.0-4.8); Lymphocytes % (A) 7 %; MCH 30.6 pg (25.0-35.0); MCHC 32.8 g/dL (31.0-37.0); MCV 93.3 fL (80.0-100.0); Mean Platelet Volume 8.1; Monocytes # (A) 0.6 k/uL (0-1.0); Monocytes % (A) 5 %; Neutrophils # (A) 10.5 k/uL (1.3-7.7); Neutrophils % (A) 87 %; Platelet Count 327 k/uL (150-450); RBC 3.87 m/uL (4.30-5.90); RDW 14.1 % (11.5-15.5)
[2019-07-08 09:35] LABS: African American GFR (CKD) >90 (>60 ml/min/1.73 sqM); Anion Gap 8 mmol/L; Blood Urea Nitrogen 39 mg/dL (9-20); Carbon Dioxide 25 mmol/L (22-30); Chloride 104 mmol/L (98-107); Glucose 188 mg/dL (74-99); Non-African American GFR(CKD) 80 (>60 ml/min/1.73 sqM); Potassium 3.8 mmol/L (3.5-5.1); Sodium 137 mmol/L (137-145)
[2019-07-08] MEDS: FAMOTIDINE 20 MG TAB PO SCH ×2 (09:38→21:30)
[2019-07-08] MEDS: HYDROcodone/APAP 7.5-325MG 1 EACH TAB PO SCH ×2 (09:38→21:30)
[2019-07-08] MEDS: LEVOFLOXACIN 500 MG TAB PO SCH (09:39)
[2019-07-08] MEDS: DEXTROSE 5%-0.9% NACL 1,000 ML IV SCH (09:39)
[2019-07-08] MEDS: APIXABAN 2.5 MG TABLET PO SCH ×2 (09:39→21:30)
[2019-07-08] MEDS: METOPROLOL TARTRATE 50 MG TAB PO SCH ×3 (09:39→21:30)
[2019-07-08 14:18] VITALS: BMI 21.1
--- NOTE | 2019-07-08 14:18 | P.PN ---
Subjective Progress Note Date: 07/07/19 Principal diagnosis: Acute COPD exacerbation Tracheobronchitis Influenza B pneumonia Metabolic encephalopathy Chronic atrial fibrillation History of coronary artery disease Dyslipidemia hypertension hypertensive cardiovascular disease 07/07/2019, patient seen eval examined during the rounds labs reviewed medications reviewed patient is awake but remains confused, have cough congestion shortness of breath oxygen have improved though patient remains afebrile, hemodynamically status is stable oxygen saturation 99% room air, due to tachycardia patient has been getting beta blockers, chest x-ray performed later on today continue show improvement Patient is a 83-year-old male seen and evaluated examined on 6 floor, patient has a known history of atrial fibrillation on anticoagulation with Eliquis, coronary artery disease with history of stent placement 2, osteoarthritis, hypertension, hyperlipidemia, memory impairment and osteoarthritis was brought to the hospital by EMS due to generalized weakness and lethargic. According to his patient was very weak and was not able to get out of bed for the past 24 hours prior to admission and unable to get out of his bed in the morning. Patient's decided to call EMS. Otherwise patient denied any complaints of chest pain. Patient does have some cough, mainly dry cough and shortness of breath. Patient does have chronic back pain and takes [place] 7.5 twice daily. Denied any complaints of chest pain. No fever no chills. No headache or dizziness or lightheadedness. No nausea vomiting abdominal pain or diarrhea. No dysuria or hematuria. Admit Chest x-ray showed no acute cardio pulmonary process. EKG showed A. fib with RVR. Troponin 0.069, 0.081 and 0.082, Lactic acid 2.4, BUN 39 on admission, Influenza B positive PCR. T-max 100.1 on admission, Patient was monitored on Gen. medical for and doing fairly well until this morning respiratory status getting worse, he have some secretions that he has difficulty expectorating them, he could not talk to me due to his respiratory distress, his vitals are stable this morning, his temperature is 90.8, heart rate 78, breathing rate 18, blood pressure 127/79 and is saturating 95% on room air. Currently patient is on Robitussin DM 2 Robitussin. Continue with Tamiflu and Levaquin, his IV fluids was held this morning, he is also on Eliquis 2.5. Patient confirmed he is DO NOT RESUSCITATE. X-ray this morning reviewed no active infiltrate identified Objective - Vital Signs Vital signs: Vital Signs Temp 97.6 F 07/07/19 14:30 Pulse 92 07/07/19 14:30 Resp 17 07/07/19 14:30 BP 115/69 07/07/19 14:30 Pulse Ox 95 07/07/19 14:30 Intake & Output 07/06/19 07/07/19 07/07/19 18:59 06:59 18:59 Intake Total 0 200 Balance 0 200 Intake: Intake, IV Titration 0 Amount Dextrose 5%-0.9% NaCl 1, 0 000 ml @ 50 mls/hr IV . Q20H [facility] Rx#:[id number] Oral 200 Other: Voiding Method Incontinent Incontinent # Voids 3 2 - Exam - Constitutional General appearance: cooperative, disheveled, mild distress - EENT Eyes: EOMI, PERRLA ENT: normal oropharynx Ears: bilateral: normal - Neck Neck: normal ROM Carotids: bilateral: upstroke normal Thyroid: bilateral: normal size - Respiratory Respiratory: bilateral: diminished, wheezing - Cardiovascular Rhythm: regular Heart sounds: normal: S1, S2 - Gastrointestinal General gastrointestinal: normal bowel sounds - Integumentary Integumentary: decreased turgor - Neurologic Neurologic: CNII-XII intact - Musculoskeletal Musculoskeletal: gait normal, generalized weakness, strength equal bilaterally - Psychiatric Psychiatric: A&O x's 3, appropriate affect, intact judgment & insight Patient overall appeared weak - Labs CBC & Chem 7: 07/08/19 08:50 07/08/19 08:50 Labs: Abnormal Lab Results - Last 24 Hours (Table) 07/07/19 07/07/19 Range/Units 08:48 08:48 Lymphocytes # 0.7 L (1.0-4.8) k/uL BUN 25 H (9-20) mg/dL Glucose 160 H (74-99) mg/dL Microbiology - Last 24 Hours (Table) 06/30/19 12:00 Blood Culture - Final Blood No Growth after 144 hours Assessment and Plan Assessment: Acute COPD exacerbation Tracheobronchitis Influenza B pneumonia Metabolic encephalopathy Chronic atrial fibrillation History of coronary artery disease Dyslipidemia hypertension hypertensive cardiovascular disease Plan: Patient appeared to have difficulty in handling the secretions upper airway agree with antibiotics and steroids appears to be responding well with bronchodilator agree with Mucomyst follow clinical course closely We will continue breathing treatments, IV steroids and antibiotic Time with Patient: Greater than 30
--- NOTE | 2019-07-08 14:20 | P.PN ---
Subjective Progress Note Date: 07/08/19 Principal diagnosis: Acute COPD exacerbation Tracheobronchitis Influenza B pneumonia Metabolic encephalopathy Chronic atrial fibrillation History of coronary artery disease Dyslipidemia hypertension hypertensive cardiovascular disease 07/08/2019, patient seen eval examined during the rounds labs reviewed medications reviewed, continue to be pleasantly confused, awake, patient has been on 2 L oxygen saturations of 92%, heart rate has improved significantly hemodynamics stable remains afebrile, appears to be handling secretions fairly well with breathing treatments 07/07/2019, patient seen eval examined during the rounds labs reviewed medications reviewed patient is awake but remains confused, have cough congestion shortness of breath oxygen have improved though patient remains afebrile, hemodynamically status is stable oxygen saturation 99% room air, due to tachycardia patient has been getting beta blockers, chest x-ray performed later on today continue show improvement Patient is a 83-year-old male seen and evaluated examined on 6 floor, patient has a known history of atrial fibrillation on anticoagulation with Eliquis, coronary artery disease with history of stent placement 2, osteoarthritis, hypertension, hyperlipidemia, memory impairment and osteoarthritis was brought to the hospital by EMS due to generalized weakness and lethargic. According to his patient was very weak and was not able to get out of bed for the past 24 hours prior to admission and unable to get out of his bed in the morning. Patient's decided to call EMS. Otherwise patient denied any complaints of chest pain. Patient does have some cough, mainly dry cough and shortness of breath. Patient does have chronic back pain and takes [place] 7.5 twice daily. Denied any complaints of chest pain. No fever no chills. No headache or dizziness or lightheadedness. No nausea vomiting abdominal pain or diarrhea. No dysuria or hematuria. Admit Chest x-ray showed no acute cardio pulmonary process. EKG showed A. fib with RVR. Troponin 0.069, 0.081 and 0.082, Lactic acid 2.4, BUN 39 on admission, Influenza B positive PCR. T-max 100.1 on admission, Patient was monitored on Gen. medical for and doing fairly well until this morning respiratory status getting worse, he have some secretions that he has difficulty expectorating them, he could not talk to me due to his respiratory distress, his vitals are stable this morning, his temperature is 90.8, heart rat e 78, breathing rate 18, blood pressure 127/79 and is saturating 95% on room air. Currently patient is on Robitussin DM 2 Robitussin. Continue with Tamiflu and Levaquin, his IV fluids was held this morning, he is also on Eliquis 2.5. Patient confirmed he is DO NOT RESUSCITATE. X-ray this morning reviewed no active infiltrate identified Objective - Vital Signs Vital signs: Vital Signs Temp 97.6 F 07/08/19 06:08 Pulse 76 07/08/19 12:07 Resp 20 07/08/19 06:08 BP 119/64 07/08/19 07:00 Pulse Ox 96 07/08/19 06:08 Intake & Output 07/07/19 07/08/19 07/08/19 18:59 06:59 18:59 Weight 70.7 kg Other: Voiding Method Incontinent Incontinent # Voids 2 4 - Exam - Constitutional General appearance: cooperative, disheveled, mild distress - EENT Eyes: EOMI, PERRLA ENT: normal oropharynx Ears: bilateral: normal - Neck Neck: normal ROM Carotids: bilateral: upstroke normal Thyroid: bilateral: normal size - Respiratory Respiratory: bilateral: diminished, wheezing - Cardiovascular Rhythm: regular Heart sounds: normal: S1, S2 - Gastrointestinal General gastrointestinal: normal bowel sounds - Integumentary Integumentary: decreased turgor - Neurologic Neurologic: CNII-XII intact - Musculoskeletal Musculoskeletal: gait normal, generalized weakness, strength equal bilaterally - Psychiatric Psychiatric: A&O x's 3, appropriate affect, intact judgment & insight Patient overall appeared weak - Labs CBC & Chem 7: 07/08/19 08:50 07/08/19 08:50 Labs: Abnormal Lab Results - Last 24 Hours (Table) 07/08/19 07/08/19 Range/Units 08:50 08:50 WBC 12.0 H (3.8-10.6) k/uL RBC 3.87 L (4.30-5.90) m/uL Hgb 11.8 L (13.0-17.5) gm/dL Hct 36.1 L (39.0-53.0) % Neutrophils # 10.5 H (1.3-7.7) k/uL Lymphocytes # 0.8 L (1.0-4.8) k/uL BUN 39 H (9-20) mg/dL Glucose 188 H (74-99) mg/dL Assessment and Plan Assessment: Acute COPD exacerbation Tracheobronchitis Influenza B pneumonia Metabolic encephalopathy Chronic atrial fibrillation History of coronary artery disease Dyslipidemia hypertension hypertensive cardiovascular disease Plan: Patient appeared to have difficulty in handling the secretions upper airway agree with antibiotics and steroids appears to be responding well with bronchodilator agree with Mucomyst follow clinical course closely We will continue breathing treatments, IV steroids and antibiotic In case if patient to be discharged would recommend to continue bronchodilators the steroids can be changed to Medrol Dosepak Time with Patient: Greater than 30
--- NOTE | 2019-07-08 17:21 | P.PN ---
Subjective Progress Note Date: 07/08/19 Principal diagnosis: Acute exacerbation COPD/tracheobronchitis Influenza B pneumonia Metabolic encephalopathy 83-year-old male seen and evaluated examined on 6 floor, patient has a known history of atrial fibrillation on anticoagulation with Eliquis, coronary artery disease with history of stent placement 2, osteoarthritis, hypertension, hyperlipidemia, memory impairment and osteoarthritis was brought to the hospital by EMS due to generalized weakness and lethargic. 07/08/2019, patient is seen and evaluated in room at bedside; patient is awake and alert but slow to respond; pleasantly confused, patient has been on 2 L oxygen saturations of 92%, heart rate has improved significantly hemodynamics stable remains afebrile Lab review shows a white blood count of 12.0, hemoglobin 11.8 and platelet count of 327; BUN has escalated slightly up to 39 with creatinine of 0.84 Pulmonary service is following and recommending to continue with current IV antibiotics and steroids along with bronchodilator therapy; Mucomyst was added and patient seems to be responding well to it Pulmonary recommending to transition to Medrol Dosepak and continue bron chodilators at time of discharge Objective - Vital Signs Vital signs: Vital Signs Temp 97.9 F 07/08/19 15:00 Pulse 76 07/08/19 15:00 Resp 16 07/08/19 15:00 BP 121/68 07/08/19 15:00 Pulse Ox 98 07/08/19 15:00 Intake & Output 07/07/19 07/08/19 07/08/19 18:59 06:59 18:59 Weight 70.7 kg Other: Voiding Method Incontinent Incontinent # Voids 2 4 2 - Exam PHYSICAL EXAMINATION: GENERAL: The patient is alert and oriented x3, not in any acute distress. Well developed, well nourished. HEENT: Pupils are round and equally reacting to light. EOMI. No scleral icterus. No conjunctival pallor. Normocephalic, atraumatic. No pharyngeal erythema. No thyromegaly. CARDIOVASCULAR: S1 and S2 present. No murmurs, rubs, or gallops. PULMONARY: Decreased breath sounds with fair air entry. ABDOMEN: Soft, nontender, nondistended, normoactive bowel sounds. No palpable organomegaly. MUSCULOSKELETAL: No joint swelling or deformity. EXTREMITIES: No cyanosis, clubbing, or pedal edema. NEUROLOGICAL: Gross neurological examination did not reveal any focal deficits. SKIN: No rashes. - Labs CBC & Chem 7: 07/08/19 08:50 07/08/19 08:50 Labs: Abnormal Lab Results - Last 24 Hours (Table) 07/08/19 07/08/19 Range/Units 08:50 08:50 WBC 12.0 H (3.8-10.6) k/uL RBC 3.87 L (4.30-5.90) m/uL Hgb 11.8 L (13.0-17.5) gm/dL Hct 36.1 L (39.0-53.0) % Neutrophils # 10.5 H (1.3-7.7) k/uL Lymphocytes # 0.8 L (1.0-4.8) k/uL BUN 39 H (9-20) mg/dL Glucose 188 H (74-99) mg/dL Assessment and Plan Assessment: 1. Acute exacerbation COPD/tracheobronchitis 2. Influenza be pneumonia 3. Metabolic encephalopathy 4. Chronic atrial fibrillation 5. History of coronary artery disease 6. Hyperlipidemia 7. Hypertension Patient remains on antibiotic therapy in form of Levaquin 500 mg daily and IV Solu-Medrol 40 mg IV every 8 hours; continue with bronchodilator and steroid nebulizer treatments; continue with current dose of Mucomyst DVT prophylaxis systemic anticoagulation with Eliquis CODE STATUS; DO NOT RESUSCITATE
[2019-07-09] MEDS: IPRATROPIUM-ALBUTEROL 3 ML NEB INHALATION SCH ×4 (08:00→20:33)
[2019-07-09] MEDS: LEVOFLOXACIN 500 MG TAB PO SCH (08:12)
[2019-07-09] MEDS: FAMOTIDINE 20 MG TAB PO SCH ×2 (08:13→20:50)
[2019-07-09] MEDS: APIXABAN 2.5 MG TABLET PO SCH ×2 (08:13→20:50)
[2019-07-09] MEDS: METOPROLOL TARTRATE 50 MG TAB PO SCH ×3 (08:13→20:50)
[2019-07-09] MEDS: HYDROcodone/APAP 7.5-325MG 1 EACH TAB PO SCH ×2 (08:13→20:50)
[2019-07-09] MEDS: methylPREDNISolone SOD SUCCI 40 MG/ML 1 ML VIAL IV SCH ×3 (08:14→23:13)
[2019-07-09] MEDS: DEXTROSE 5%-0.9% NACL 1,000 ML IV SCH (08:14)
[2019-07-09] MEDS: BUDESONIDE 0.5 MG/2 ML NEBU INHALATION SCH ×3 (11:31→20:33)
[2019-07-09 14:38] LABS: Basophils % (A) 0 %; Eosinophils % (A) 0 %; HCT 35.2 % (39.0-53.0); HGB 11.4 gm/dL (13.0-17.5); Lymphocytes # (A) 0.5 k/uL (1.0-4.8); Lymphocytes % (A) 4 %; MCH 30.6 pg (25.0-35.0); MCHC 32.4 g/dL (31.0-37.0); MCV 94.5 fL (80.0-100.0); Mean Platelet Volume 7.8; Monocytes # (A) 0.5 k/uL (0-1.0); Monocytes % (A) 5 %; Neutrophils # (A) 10.1 k/uL (1.3-7.7); Neutrophils % (A) 90 %; Platelet Count 309 k/uL (150-450); RBC 3.72 m/uL (4.30-5.90); WBC 11.2 k/uL (3.8-10.6)
[2019-07-09 15:04] LABS: African American GFR (CKD) >90 (>60 ml/min/1.73 sqM); Anion Gap 8 mmol/L; Blood Urea Nitrogen 38 mg/dL (9-20); Calcium 8.9 mg/dL (8.4-10.2); Carbon Dioxide 26 mmol/L (22-30); Chloride 103 mmol/L (98-107); Glucose 178 mg/dL (74-99); Non-African American GFR(CKD) 87 (>60 ml/min/1.73 sqM); Potassium 4.2 mmol/L (3.5-5.1); Sodium 137 mmol/L (137-145)
--- NOTE | 2019-07-09 17:34 | P.PN ---
Subjective Progress Note Date: 07/09/19 Principal diagnosis: Acute exacerbation COPD/tracheobronchitis Influenza B pneumonia Metabolic encephalopathy 83-year-old male seen and evaluated examined on 6 floor, patient has a known history of atrial fibrillation on anticoagulation with Eliquis, coronary artery disease with history of stent placement 2, osteoarthritis, hypertension, hyperlipidemia, memory impairment and osteoarthritis was brought to the hospital by EMS due to generalized weakness and lethargic. 07/08/2019, patient is seen and evaluated in room at bedside; patient is awake and alert but slow to respond; pleasantly confused, patient has been on 2 L oxygen saturations of 92%, heart rate has improved significantly hemodynamics stable remains afebrile Lab review shows a white blood count of 12.0, hemoglobin 11.8 and platelet count of 327; BUN has escalated slightly up to 39 with creatinine of 0.84 Pulmonary service is following and recommending to continue with current IV antibiotics and steroids along with bronchodilator therapy; Mucomyst was added and patient seems to be responding well to it Pulmonary recommending to transition to Medrol Dosepak and continue bron chodilators at time of discharge 07/09/2019 Patient is seen and evaluated in room at bedside; patient is currently receiving breathing treatment but denies any complaints Vital signs are reviewed with a temperature of 97.3, pulse 62, respirations 16 and blood pressure 134/68 Lab review shows a white blood count of 11.2, hemoglobin of 11.4; BUN remained stable at 38 Pulmonary service is following for acute COPD exacerbation, severe tracheobronchitis and influenza B pneumonia and recommending to continue with IV steroid therapy and antibiotics at this time with recommendations to switch to oral steroids with bronchodilator therapy at time of discharge Patient is clinically improving; discussed patient transferred back to [facility] with [facility] [place] will be able to take patient on Thursday and arrangements are in place Objective - Vital Signs Vital signs: Vital Signs Temp 97.3 F L 07/09/19 14:29 Pulse 60 07/09/19 15:30 Resp 16 07/09/19 14:29 BP 134/68 07/09/19 14:29 Pulse Ox 98 07/09/19 14:29 Intake & Output 07/08/19 07/09/19 07/09/19 18:59 06:59 18:59 Intake Total 300 Balance 300 Weight 70.7 kg Intake: Oral 300 Other: Voiding Method Incontinent # Voids 2 1 1 - Exam PHYSICAL EXAMINATION: GENERAL: The patient is alert and oriented x3, not in any acute distress. Well developed, well nourished. HEENT: Pupils are round and equally reacting to light. EOMI. No scleral icterus. No conjunctival pallor. Normocephalic, atraumatic. No pharyngeal erythema. No thyromegaly. CARDIOVASCULAR: S1 and S2 present. No murmurs, rubs, or gallops. PULMONARY: Decreased breath sounds with fair air entry. ABDOMEN: Soft, nontender, nondistended, normoactive bowel sounds. No palpable organomegaly. MUSCULOSKELETAL: No joint swelling or deformity. EXTREMITIES: No cyanosis, clubbing, or pedal edema. NEUROLOGICAL: Gross neurological examination did not reveal any focal deficits. SKIN: No rashes. - Labs CBC & Chem 7: 07/09/19 14:05 07/09/19 14:05 Labs: Abnormal Lab Results - Last 24 Hours (Table) 07/09/19 07/09/19 Range/Units 14:05 14:05 WBC 11.2 H (3.8-10.6) k/uL RBC 3.72 L (4.30-5.90) m/uL Hgb 11.4 L (13.0-17.5) gm/dL Hct 35.2 L (39.0-53.0) % Neutrophils # 10.1 H (1.3-7.7) k/uL Lymphocytes # 0.5 L (1.0-4.8) k/uL BUN 38 H (9-20) mg/dL Glucose 178 H (74-99) mg/dL Assessment and Plan Assessment: 1. Acute exacerbation COPD/tracheobronchitis 2. Influenza be pneumonia 3. Metabolic encephalopathy 4. Chronic atrial fibrillation 5. History of coronary artery disease 6. Hyperlipidemia 7. Hypertension Patient remains on antibiotic therapy in form of Levaquin 500 mg daily and IV Solu-Medrol 40 mg IV every 8 hours; continue with bronchodilator and steroid nebulizer treatments; continue with current dose of Mucomyst DVT prophylaxis systemic anticoagulation with Eliquis CODE STATUS; DO NOT RESUSCITATE
[2019-07-10] MEDS: DEXTROSE 5%-0.9% NACL 1,000 ML IV SCH (03:52)
[2019-07-10] MEDS: IPRATROPIUM-ALBUTEROL 3 ML NEB INHALATION SCH ×4 (08:50→20:27)
[2019-07-10] MEDS: BUDESONIDE 0.5 MG/2 ML NEBU INHALATION SCH ×2 (08:50→20:27)
[2019-07-10] MEDS: methylPREDNISolone SOD SUCCI 40 MG/ML 1 ML VIAL IV SCH ×2 (09:30→16:45)
[2019-07-10] MEDS: LEVOFLOXACIN 500 MG TAB PO SCH (09:31)
[2019-07-10] MEDS: APIXABAN 2.5 MG TABLET PO SCH ×2 (09:31→20:42)
[2019-07-10] MEDS: BUTALB/APAP/CAFF 50-325-40MG TAB PO PRN (09:32)
[2019-07-10] MEDS: HYDROcodone/APAP 7.5-325MG 1 EACH TAB PO SCH ×2 (09:32→20:42)
[2019-07-10] MEDS: METOPROLOL TARTRATE 50 MG TAB PO SCH ×3 (09:32→20:41)
[2019-07-10] MEDS: FAMOTIDINE 20 MG TAB PO SCH ×2 (09:32→20:41)
--- NOTE | 2019-07-10 10:54 | P.PN ---
Subjective Progress Note Date: 07/10/19 Principal diagnosis: Acute COPD exacerbation Tracheobronchitis Influenza B pneumonia Metabolic encephalopathy Chronic atrial fibrillation History of coronary artery disease Dyslipidemia hypertension hypertensive cardiovascular disease 07/10/2019, patient seen eval examined during the rounds labs reviewed medications reviewed care plan discussed with RN, patient has finished therapy with antivirals, remains pleasantly confused patient is being evaluated for placement ECF likely early next week 07/08/2019, patient seen eval examined during the rounds labs reviewed med ications reviewed, continue to be pleasantly confused, awake, patient has been on 2 L oxygen saturations of 92%, heart rate has improved significantly hemodynamics stable remains afebrile, appears to be handling secretions fairly well with breathing treatments 07/07/2019, patient seen eval examined during the rounds labs reviewed medications reviewed patient is awake but remains confused, have cough congestion shortness of breath oxygen have improved though patient remains afebrile, hemodynamically status is stable oxygen saturation 99% room air, due to tachycardia patient has been getting beta blockers, chest x-ray performed later on today continue show improvement Patient is a 83-year-old male seen and evaluated examined on 6 floor, patient has a known history of atrial fibrillation on anticoagulation with Eliquis, coronary artery disease with history of stent placement 2, osteoarthritis, hypertension, hyperlipidemia, memory impairment and osteoarthritis was brought to the hospital by EMS due to generalized weakness and lethargic. According to his patient was very weak and was not able to get out of bed for the past 24 hours prior to admission and unable to get out of his bed in the morning. Patient's decided to call EMS. Otherwise patient denied any complaints of chest pain. Patient does have some cough, mainly dry cough and shortness of breath. Patient does have chronic back pain and takes [place] 7.5 twice daily. Denied any complaints of chest pain. No fever no chills. No headache or dizziness or lightheadedness. No nausea vomiting abdominal pain or diarrhea. No dysuria or hematuria. Admit Chest x-ray showed no acute cardio pulmonary process. EKG showed A. fib with RVR. Troponin 0.069, 0.081 and 0.082, Lactic acid 2.4, BUN 39 on admission, Influenza B positive PCR. T-max 100.1 on admission, Patient was monitored on Gen. medical for and doing fairly well until this morning respiratory status getting worse, he have some secretions that he has difficulty expectorating them, he could not talk to me due to his respiratory distress, his vitals are stable this morning, his temperature is 90.8, heart rate 78, breathing rate 18, blood pressure 127/79 and is saturating 95% on room air. Currently patient is on Robitussin DM 2 Robitussin. Continue with Tamiflu and Levaquin, his IV fluids was held this morning, he is also on Eliquis 2.5. Patient confirmed he is DO NOT RESUSCITATE. X-ray this morning reviewed no active infiltrate identified Objective - Vital Signs Vital signs: Vital Signs Temp 97.8 F 07/10/19 06:25 Pulse 60 07/10/19 09:04 Resp 20 07/10/19 06:25 BP 148/74 07/10/19 06:25 Pulse Ox 95 07/10/19 06:25 Intake & Output 07/09/19 07/10/19 07/10/19 18:59 06:59 18:59 Intake Total 300 200 Balance 300 200 Intake: Oral 300 200 Other: Voiding Method Incontinent Incontinent # Voids 1 2 - Exam - Constitutional General appearance: cooperative, disheveled, mild distress - EENT Eyes: EOMI, PERRLA ENT: normal oropharynx Ears: bilateral: normal - Neck Neck: normal ROM Carotids: bilateral: upstroke normal Thyroid: bilateral: normal size - Respiratory Respiratory: bilateral: diminished, wheezing - Cardiovascular Rhythm: regular Heart sounds: normal: S1, S2 - Gastrointestinal General gastrointestinal: normal bowel sounds - Integumentary Integumentary: decreased turgor - Neurologic Neurologic: CNII-XII intact - Musculoskeletal Musculoskeletal: gait normal, generalized weakness, strength equal bilaterally - Psychiatric Psychiatric: A&O x's 3, appropriate affect, intact judgment & insight Patient overall appeared weak - Labs CBC & Chem 7: 07/09/19 14:05 07/09/19 14:05 Labs: Abnormal Lab Results - Last 24 Hours (Table) 07/09/19 07/09/19 Range/Units 14:05 14:05 WBC 11.2 H (3.8-10.6) k/uL RBC 3.72 L (4.30-5.90) m/uL Hgb 11.4 L (13.0-17.5) gm/dL Hct 35.2 L (39.0-53.0) % Neutrophils # 10.1 H (1.3-7.7) k/uL Lymphocytes # 0.5 L (1.0-4.8) k/uL BUN 38 H (9-20) mg/dL Glucose 178 H (74-99) mg/dL Assessment and Plan Assessment: Acute COPD exacerbation Tracheobronchitis Influenza B pneumonia Metabolic encephalopathy Chronic atrial fibrillation History of coronary artery disease Dyslipidemia hypertension hypertensive cardiovascular disease Plan: Continue breathing treatment The time of discharge change his steroids and antibiotics to oral Agree with discharge planning to the ECF In case if patient to be discharged would recommend to continue bronchodilators the steroids can be changed to Medrol Dosepak Time with Patient: Greater than 30
--- NOTE | 2019-07-10 16:24 | P.PN ---
Subjective Progress Note Date: 07/10/19 Principal diagnosis: Acute exacerbation COPD/tracheobronchitis Influenza B pneumonia Metabolic encephalopathy 83-year-old male seen and evaluated examined on 6 floor, patient has a known history of atrial fibrillation on anticoagulation with Eliquis, coronary artery disease with history of stent placement 2, osteoarthritis, hypertension, hyperlipidemia, memory impairment and osteoarthritis was brought to the hospital by EMS due to generalized weakness and lethargic. 07/08/2019, patient is seen and evaluated in room at bedside; patient is awake and alert but slow to respond; pleasantly confused, patient has been on 2 L oxygen saturations of 92%, heart rate has improved significantly hemodynamics stable remains afebrile Lab review shows a white blood count of 12.0, hemoglobin 11.8 and platelet count of 327; BUN has escalated slightly up to 39 with creatinine of 0.84 Pulmonary service is following and recommending to continue with current IV antibiotics and steroids along with bronchodilator therapy; Mucomyst was added and patient seems to be responding well to it Pulmonary recommending to transition to Medrol Dosepak and continue bron chodilators at time of discharge 07/09/2019 Patient is seen and evaluated in room at bedside; patient is currently receiving breathing treatment but denies any complaints Vital signs are reviewed with a temperature of 97.3, pulse 62, respirations 16 and blood pressure 134/68 Lab review shows a white blood count of 11.2, hemoglobin of 11.4; BUN remained stable at 38 Pulmonary service is following for acute COPD exacerbation, severe tracheobronchitis and influenza B pneumonia and recommending to continue with IV steroid therapy and antibiotics at this time with recommendations to switch to oral steroids with bronchodilator therapy at time of discharge Patient is clinically improving; discussed patient transferred back to care home facility with case management manager [facility] be able to take patient on Thursday and arrangements are in place 07/10/2019 Patient is seen and evaluated sitting up in bed; clinically markedly improved; patient does continue transferred to care home facility once arrangements are made; patient is switched to oral steroids with plans for a quick taper and will continue on DuoNeb nebulizer treatments and Levaquin 500 mg daily Discharge to skilled rehab once arrangements are made Objective - Vital Signs Vital signs: Vital Signs Temp 97.8 F 07/10/19 06:25 Pulse 64 07/10/19 12:18 Resp 20 07/10/19 06:25 BP 148/74 07/10/19 06:25 Pulse Ox 95 07/10/19 06:25 Intake & Output 07/09/19 07/10/19 07/10/19 18:59 06:59 18:59 Intake Total 300 200 Balance 300 200 Intake: Oral 300 200 Other: Voiding Method Incontinent Incontinent # Voids 1 2 - Exam PHYSICAL EXAMINATION: GENERAL: The patient is alert and oriented x3, not in any acute distress. Well developed, well nourished. HEENT: Pupils are round and equally reacting to light. EOMI. No scleral icterus. No conjunctival pallor. Normocephalic, atraumatic. No pharyngeal erythema. No thyromegaly. CARDIOVASCULAR: S1 and S2 present. No murmurs, rubs, or gallops. PULMONARY: Decreased breath sounds with fair air entry. ABDOMEN: Soft, nontender, nondistended, normoactive bowel sounds. No palpable organomegaly. MUSCULOSKELETAL: No joint swelling or deformity. EXTREMITIES: No cyanosis, clubbing, or pedal edema. NEUROLOGICAL: Gross neurological examination did not reveal any focal deficits. SKIN: No rashes. - Labs CBC & Chem 7: 07/09/19 14:05 07/09/19 14:05 Labs: Abnormal Lab Results - Last 24 Hours (Table) 07/09/19 07/09/19 Range/Units 14:05 14:05 WBC 11.2 H (3.8-10.6) k/uL RBC 3.72 L (4.30-5.90) m/uL Hgb 11.4 L (13.0-17.5) gm/dL Hct 35.2 L (39.0-53.0) % Neutrophils # 10.1 H (1.3-7.7) k/uL Lymphocytes # 0.5 L (1.0-4.8) k/uL BUN 38 H (9-20) mg/dL Glucose 178 H (74-99) mg/dL Assessment and Plan Assessment: 1. Acute exacerbation COPD/tracheobronchitis 2. Influenza be pneumonia 3. Metabolic encephalopathy 4. Chronic atrial fibrillation 5. History of coronary artery disease 6. Hyperlipidemia 7. Hypertension Patient remains on antibiotic therapy in form of Levaquin 500 mg daily and IV Solu-Medrol 40 mg IV every 8 hours; continue with bronchodilator and steroid nebulizer treatments; continue with current dose of Mucomyst DVT prophylaxis systemic anticoagulation with Eliquis CODE STATUS; DO NOT RESUSCITATE
[2019-07-11] MEDS: IPRATROPIUM-ALBUTEROL 3 ML NEB INHALATION SCH ×3 (07:37→16:20)
[2019-07-11] MEDS: BUDESONIDE 0.5 MG/2 ML NEBU INHALATION SCH (07:37)
[2019-07-11] MEDS: LEVOFLOXACIN 500 MG TAB PO SCH (08:52)
[2019-07-11] MEDS: METOPROLOL TARTRATE 50 MG TAB PO SCH (08:52)
[2019-07-11] MEDS: FAMOTIDINE 20 MG TAB PO SCH (08:53)
[2019-07-11] MEDS: APIXABAN 2.5 MG TABLET PO SCH (08:53)
[2019-07-11] MEDS: HYDROcodone/APAP 7.5-325MG 1 EACH TAB PO SCH (08:53)
--- NOTE | 2019-07-11 08:54 | XR ---
EXAMINATION TYPE: XR chest 1V DATE OF EXAM: 07/11/2019 COMPARISON: NONE HISTORY: cough TECHNIQUE: Single frontal view of the chest is obtained. FINDINGS: There is no focal air space opacity, pleural effusion, or pneumothorax seen. The cardiac silhouette size is within normal limits. The osseous structures are intact. IMPRESSION: No acute process.
[2019-07-11] MEDS ORDERED: predniSONE 20 MG TAB PO SCH (09:00)
--- NOTE | 2019-07-11 12:43 | P.DS ---
Providers Date of admission: 06/30/19 14:09 Attending physician: Enriqueta Rodriguez Consults: 07/04/19 01:13 Consult Physician Routine Consulting Provider: Kalani Aguirre Consult Reason/Comments: Elevated troponin level Do you want consulting provider notified?: Yes, Notify in am 07/06/19 08:00 Consult Physician Urgent Consulting Provider: Robson Guan Consult Reason/Comments: influenza Do you want consulting provider notified?: Yes Primary care physician: Neelima Toledo [facility] Hospital Course: Diagnoses: Acute influenza B infection acute tracheobronchitis secondary to above Acute COPD exacerbation Metabolic encephalopathy, secondary to above Severe lethargy and fatigue due to his infection and heart problem. Elevated troponin, rule out acute coronary syndrome. Animal Ride Attendant recommends to continue medical therapy Chronic Atrial fibrillation with rapid regular rate on admission. Paroxysmal RVR Lactic acidosis 2.4 improved with hydration Dehydration and volume depletion Chronic atrial fibrillation on anticoagulation with Eliquis Coronary artery disease with history of stent placement GERD Hypertension and hyperlipidemia Memory impairment Osteoarthritis Psoriasis History of diverticulitis Osteoarthritis Previous history of smoking Hospital course: Patient is a 83-year-old male with a known history of atrial fibrillation on anticoagulation with Eliquis, coronary artery disease with history of stent placement 2, osteoarthritis, hypertension, hyperlipidemia, memory impairment and osteoarthritis was brought to the hospital by EMS due to generalized weakness and lethargic. According to his patient was very weak and was not able to get out of bed for the past 24 hours prior to admission and unable to get out of his bed in the morning. Patient's decided to call EMS. Patient has been admitted to the hospital, he was diagnosed with influenza tracheobronchitis and COPD, has been evaluated by general engineering teacher and drop count associate, patient finished his course of Tamiflu and Levaquin, drop count associate also evaluated the patient and recommended continue with conservative therapy. Patient has mentation significantly improved however he still confused which looks like this is close to his baseline., On the day of discharge patient is alert awake and oriented to place and time as he knows he is at [facility] and this year is , however he could not . THE president orifice illness. However patient is able to hold some logic conversation. Patient still have some dry cough occasionally but no chest pain or dyspnea No nausea vomiting, no problem with his urine. No fever pt finished his tamiflu and lovenox course The chest x-ray prior to discharge: no acute process pt was also on [place] 7.5-325 mg BID scheduled dose , we lowered that to 5-325 mg with reocommendation to dc eventually within few days of discharge Patient was cleared for discharge by the pulmonary and cardiology services . Patient will be discharged on tapered dose of prednisone Problems and management plan were discussed with the patient and he verbalized understanding and acceptance Patient was found stable and can be discharged home however he needs follow-up as an outpatient. Patient was instructed to follow up with PCP within one week and patient agrees -Gen: patient is a AAOx2, no distress CVS: S1-S2, RRR, no murmur Lungs: B/L CTA, no wheezing Abdomen: soft, no distention, no tenderness, positive bowel sounds Extremity: no leg edema or induration Time spent more than 35 minutes Plan - Discharge Summary Discharge Rx Participant: No New Discharge Prescriptions: New Ipratropium-Albuterol Nebulize [Duoneb 0.5 mg-3 mg/3 ml Soln] 3 ml INHALATION RT-QID PRN ml PRN Reason: Shortness Of Breath Butalb/APAP/Caff 50-325-40Mg [Fioricet 50-325-40] 1 each PO Q6HR PRN #3 tab PRN Reason: Headache Metoprolol Tartrate [Lopressor] 50 mg PO TID tab HYDROcodone/APAP 5-325MG [[place] 5-325] 1 tab PO Q12HR PRN 2 Days #2 tab PRN Reason: Severe Pain Famotidine [Pepcid] 10 mg PO Q12HR 21 Days #42 tab predniSONE 10 mg PO DIRECTED #36 tab Budesonide [Pulmicort] 0.5 mg INHALATION RT-BID #0 ml guaiFENesin SYRUP 100MG/5ML [Robitussin] 200 mg PO Q6H PRN ml PRN Reason: Cough Acetaminophen Tab [Tylenol] 325 mg PO Q6HR PRN tab PRN Reason: Fever And/ Or Pain Continue Apixaban [Eliquis] 2.5 mg PO BID Cholecalciferol [Vitamin D3 (25 Mcg = 1000 Iu)] 2,000 unit PO DAILY Vitamin A 10,000 unit PO DAILY Ogdsmdzlvs-FJC-Tghwshz-Codeine [Fiorinal w/Cod 12-204-00-30MG] 1 - 2 cap PO TID PRN PRN Reason: Migraine Headache Discontinued Metoprolol Tartrate [Lopressor] 12.5 mg PO BID HYDROcodone/APAP 7.5-325MG [[place] 7.5-325] 1 tab PO BID Discharge Medication List Apixaban [Eliquis] 2.5 mg PO BID 01/17/16 [History] Cholecalciferol [Vitamin D3 (25 Mcg = 1000 Iu)] 2,000 unit PO DAILY 01/17/16 [History] Vitamin A 10,000 unit PO DAILY 03/18/16 [History] Iwsxiootqg-NTS-Osdecgs-Codeine [Fiorinal w/Cod 16-492-25-30MG] 1 - 2 cap PO TID PRN 12/03/16 [History] Acetaminophen Tab [Tylenol] 325 mg PO Q6HR PRN tab 07/11/19 [Rx] Budesonide [Pulmicort] 0.5 mg INHALATION RT-BID #0 ml 07/11/19 [Rx] Butalb/APAP/Caff 50-325-40Mg [Fioricet 50-325-40] 1 each PO Q6HR PRN #3 tab 07/11/19 [Rx] Famotidine [Pepcid] 10 mg PO Q12HR 21 Days #42 tab 07/11/19 [Rx] HYDROcodone/APAP 5-325MG [[place] 5-325] 1 tab PO Q12HR PRN 2 Days #2 tab 07/11/19 [Rx] Ipratropium-Albuterol Nebulize [Duoneb 0.5 mg-3 mg/3 ml Soln] 3 ml INHALATION RT-QID PRN ml 07/11/19 [Rx] Metoprolol Tartrate [Lopressor] 50 mg PO TID tab 07/11/19 [Rx] guaiFENesin SYRUP 100MG/5ML [Robitussin] 200 mg PO Q6H PRN ml 07/11/19 [Rx] predniSONE 10 mg PO DIRECTED #36 tab 07/11/19 [Rx] Follow up Appointment(s)/Referral(s): Robson Guan MD [STAFF PHYSICIAN] - 1 Week Neelima Toledo MD [Primary Care Provider] - 1-2 days
--- NOTE | 2019-07-11 13:42 | P.PN ---
Subjective Progress Note Date: 07/11/19 Principal diagnosis: Acute COPD exacerbation Tracheobronchitis Influenza B pneumonia Metabolic encephalopathy Chronic atrial fibrillation History of coronary artery disease Dyslipidemia hypertension hypertensive cardiovascular disease 07/11/2019, patient seen eval examined during rounds more awake and alert, chest pain shortness of breath has improved respiratory secretions improved patient is stable from pulmonary standpoint for discharge to extended care facility, will recommend follow-up 07/10/2019, patient seen eval examined during the rounds labs reviewed medic ations reviewed care plan discussed with RN, patient has finished therapy with antivirals, remains pleasantly confused patient is being evaluated for placement ECF likely early next week 07/08/2019, patient seen eval examined during the rounds labs reviewed medications reviewed, continue to be pleasantly confused, awake, patient has been on 2 L oxygen saturations of 92%, heart rate has improved significantly hemodynamics stable remains afebrile, appears to be handling secretions fairly well with breathing treatments 07/07/2019, patient seen eval examined during the rounds labs reviewed medic ations reviewed patient is awake but remains confused, have cough congestion shortness of breath oxygen have improved though patient remains afebrile, hemodynamically status is stable oxygen saturation 99% room air, due to tachycardia patient has been getting beta blockers, chest x-ray performed later on today continue show improvement Patient is a 83-year-old male seen and evaluated examined on 6 floor, patient has a known history of atrial fibrillation on anticoagulation with Eliquis, coronary artery disease with history of stent placement 2, osteoarthritis, hypertension, hyperlipidemia, memory impairment and osteoarthritis was brought to the hospital by EMS due to generalized weakness and lethargic. According to his patient was very weak and was not able to get out of bed for the past 24 hours prior to admission and unable to get out of his bed in the morning. Patient's decided to call EMS. Otherwise patient denied any complaints of chest pain. Patient does have some cough, mainly dry cough and shortness of breath. Patient does have chronic back pain and takes [place] 7.5 twice daily. Denied any complaints of chest pain. No fever no chills. No headache or dizziness or lightheadedness. No nausea vomiting abdominal pain or diarrhea. No dysuria or hematuria. Admit Chest x-ray showed no acute cardio pulmonary process. EKG showed A. fib with RVR. Troponin 0.069, 0.081 and 0.082, Lactic acid 2.4, BUN 39 on admission, Influenza B positive PCR. T-max 100.1 on admission, Patient was monitored on [facility] medical for and doing fairly well until this morning respiratory status getting worse, he have some secretions that he has difficulty expectorating them, he could not talk to me due to his respiratory distress, his vitals are stable this morning, his temperature is 90.8, heart rate 78, breathing rate 18, blood pressure 127/79 and is saturating 95% on room air. Currently patient is on Robitussin DM 2 Robitussin. Continue with Tamiflu and Levaquin, his IV fluids was held this morning, he is also on Eliquis 2.5. Patient confirmed he is DO NOT RESUSCITATE. X-ray this morning reviewed no active infiltrate identified Objective - Vital Signs Vital signs: Vital Signs Temp 97.0 F L 07/11/19 05:00 Pulse 62 07/11/19 11:21 Resp 20 07/11/19 05:00 BP 169/79 07/11/19 05:00 Pulse Ox 96 07/11/19 05:00 Intake & Output 07/10/19 07/11/19 07/11/19 18:59 06:59 18:59 Intake Total 700 Balance 700 Intake: Oral 700 Other: Voiding Method Incontinent # Voids 1 4 # Bowel Movements 1 - Exam - Constitutional General appearance: cooperative, disheveled, mild distress - EENT Eyes: EOMI, PERRLA ENT: normal oropharynx Ears: bilateral: normal - Neck Neck: normal ROM Carotids: bilateral: upstroke normal Thyroid: bilateral: normal size - Respiratory Respiratory: bilateral: diminished, wheezing - Cardiovascular Rhythm: regular Heart sounds: normal: S1, S2 - Gastrointestinal General gastrointestinal: normal bowel sounds - Integumentary Integumentary: decreased turgor - Neurologic Neurologic: CNII-XII intact - Musculoskeletal Musculoskeletal: gait normal, generalized weakness, strength equal bilaterally - Psychiatric Psychiatric: A&O x's 3, appropriate affect, intact judgment & insight Patient overall appeared weak - Labs CBC & Chem 7: 07/09/19 14:05 07/09/19 14:05 Assessment and Plan Assessment: Acute COPD exacerbation Tracheobronchitis Influenza B pneumonia Metabolic encephalopathy Chronic atrial fibrillation History of coronary artery disease Dyslipidemia hypertension hypertensive cardiovascular disease Plan: Continue breathing treatment His steroids and antibiotics can be changed to oral Agree with discharge planning to the ECF In case if patient to be discharged would recommend to continue bronchodilators the steroids can be changed to Medrol Dosepak Time with Patient: Greater than 30
[2019-07-11 14:55] VITALS: BP 126/80; RESP 14; TEMP 97.4
[2019-07-11 16:22] VITALS: PULSE 62
== END 2019-07-11 17:32 | DRG 193 ==
LOC: EC 11:05 → 3SCARD 14:09 → 6NMEDSUR 07-05 19:45
PROVIDERS: ADMIT Internal Medicine; ATTEND Internal Medicine
DX: J10.00 Influenza due to other identified influenza virus with unspecified type of pneumonia (principal); G93.41 Metabolic encephalopathy; E87.2 Acidosis; I48.11 Longstanding persistent atrial fibrillation; J44.1 Chronic obstructive pulmonary disease with (acute) exacerbation; J44.0 Chronic obstructive pulmonary disease with (acute) lower respiratory infection; Z66 Do not resuscitate; M19.90 Unspecified osteoarthritis, unspecified site; I25.10 Atherosclerotic heart disease of native coronary artery without angina pectoris; K21.9 Gastro-esophageal reflux disease without esophagitis; E78.5 Hyperlipidemia, unspecified; F03.90 Unspecified dementia, unspecified severity, without behavioral disturbance, psychotic disturbance, mood disturbance, and anxiety; J20.9 Acute bronchitis, unspecified; G89.29 Other chronic pain; I11.9 Hypertensive heart disease without heart failure; E86.0 Dehydration; Z96.651 Presence of right artificial knee joint; Z96.649 Presence of unspecified artificial hip joint; L40.9 Psoriasis, unspecified; Z95.5 Presence of coronary angioplasty implant and graft; I25.2 Old myocardial infarction; Z95.1 Presence of aortocoronary bypass graft; Z87.891 Personal history of nicotine dependence; Z85.828 Personal history of other malignant neoplasm of skin; Z80.1 Family history of malignant neoplasm of trachea, bronchus and lung; Z80.0 Family history of malignant neoplasm of digestive organs; Z79.891 Long term (current) use of opiate analgesic; Z79.01 Long term (current) use of anticoagulants; Z88.8 Allergy status to other drugs, medicaments and biological substances; Z88.0 Allergy status to penicillin
CPT/HCPCS: 36415; 71045; 71046; 74230; 80048; 80053; 81001; 83605; 84484; 85025; 85610; 85730; 87040; 87502; 93005; 93306; 94640; 94760; 96361; 96365; 99285